=== PATIENT | male | born 1995 ===

== ENCOUNTER 2024-12-29 08:56 | Inpatient (IN) | payer MEDICARE, MEDICAID, SELFPAY ==
[2024-12-29] VITALS (13 sets, daily range): BP systolic 87–134; BP diastolic 43–89; PULSE 85–111; RESP 16–26; TEMP 36.8–38.9; O2SAT 95–99; BMI 31.4; BMI 29.3
--- NOTE | ~2024-12-29 | US_ITS ---
EXAMINATION: US TRIPLEX LOWER EXTREMITY, BILATERAL CLINICAL INFORMATION: Pain, lower extremities. COMPARISON: None available. TECHNIQUE: Color-flow triplex imaging with spectral analysis and compression Doppler were performed on the bilateral lower extremities. FINDINGS: Respiratory variation, normal compression and augmented flow are noted throughout the visualized common femoral vein, superficial femoral vein, profunda femoral vein, popliteal vein and midcalf peroneal and posterior tibial venous segments . There is no Sullivan's cyst. US/US venous duplex LE BI IMPRESSION: No acute deep venous thrombosis involving the bilateral lower extremities. Negative exam. Electronically signed by: Grabiel Erazo MD 12/30/2024 02:34 PM EST
--- NOTE | ~2024-12-29 | XR_ITS ---
EXAMINATION: XR CHEST CLINICAL INFORMATION: fever COMPARISON: None available. TECHNIQUE: 2 views of the chest were obtained. FINDINGS: No significant abnormality is noted involving the heart, lungs, mediastinum, bony thorax or soft tissues. XR/XR chest 2V IMPRESSION: Unremarkable chest examination. Electronically signed by: Wily Oakes MD 12/29/2024 04:27 PM [facility] [place]
--- NOTE | ~2024-12-29 | CT_ITS ---
CLINICAL HISTORY: pyelonerphitits, kidney stones, hazel rectal absces CT abdomen and pelvis with contrast Comparison: 02/21/2019 Findings: No consolidation or effusion. The gallbladder and solid organs are within normal limits. No renal stones. There is extensive fluid distention of small bowel. No focal bowel inflammation or evidence of bowel obstruction. There is thickening and nodularity of the bladder wall, predominating inferiorly and on the right. There is infiltration of fat adjacent to the urinary bladder, prostate gland and seminal vesicles and within the presacral space. Normal appendix. There is thrombus within the left common iliac vein and bilateral internal iliac veins. There is partial visualization of a mass or complex fluid collection involving the posterior inferior base of the penis on the left side and the adjacent perineum (series 2 images 88-95 ). Possible 2 cm fluid collection within the left obturator internus muscle. The bones are intact. IMPRESSION: 1. There is thrombus within the left common iliac vein and bilateral internal iliac veins. 2. Thickening and nodularity of the bladder wall may be secondary to infection or neoplasm. There is also infiltration of fat adjacent to the bladder, prostate gland, seminal vesicles and within the presacral space suggesting additional areas of involvement. 3. Partial visualization of a mass or complex fluid collection involving the posterior inferior base of the penis on the left side and the adjacent perineum. Possible fluid collection within the adjacent left obturator internus muscle. This document has been electronically signed by: Karin Rey MD on 12/29/2024 19:36:19
--- NOTE | ~2024-12-29 | CT_ITS ---
CLINICAL HISTORY: follow up ischiorectal abscess CT PELVIS WITHOUT CONTRAST Comparison: CT/TX/SR - CT PELVIS W IV CON - 12/30/24 09:[address]/SR - CT ABDOMEN PELVIS W IV CON - 12/29/24 18:34 EST Findings: Persistent presacral edema with no definite organized fluid collection. Probably improved perivesical edema. There are now inflammatory changes in the left lower quadrant. The visualized appendix is unremarkable. No acute osseous abnormality. The lack of IV contrast limits evaluation. There is redemonstration of irregular opacities in the left posterior perineum adjacent to the penile base, extending roughly 8 cm in craniocaudal dimension. There is again thickening of the ipsilateral obturator internus musculature. IMPRESSION: 1. Suspected multifocal abscesses in the left posterior perineum with involvement of the left obturator internus muscle is grossly unchanged compared to prior studies. No findings to suggest necrotizing fasciitis. 2. Likely reactive presacral edema with no definite intraperitoneal fluid collection. This document has been electronically signed by: Lia Ernandez DO on 01/01/2025 15:50:34
--- NOTE | ~2024-12-29 | CT_ITS ---
EXAMINATION: CT PELVIS WITH CONTRAST CLINICAL INFORMATION: Left renal complex fluid/mass. Follow-up. COMPARISON: CT abdomen pelvis 12/29/2004. TECHNIQUE: Helical scanning was performed with submillimeter collimation through the pelvis with the use of oral contrast and during bolus intravenous injection of 100 mL of Omnipaque 350 intravenous contrast. Sagittal and coronal multiplanar 2-D reconstructions were obtained. This CT examination was performed using dose optimization techniques as appropriate, variously including the following: *Automated exposure control *Adjustment of mA and/or kV according to patient size (this includes techniques or standardized protocols for targeted exams where dose is matched to indication/reason for exam; i.e. extremities or head) *Use of iterative reconstruction technique FINDINGS: PELVIS: There is a left complex fluid collection in ischio rectal fossa extending slightly inferiorly. Measures 5.8 cm in a craniocaudad, 3 cm wide and 3.2 cm in AP and dimension. It measures 19 Hounsfield units suggestive of complex fluid collection. It is restricted to left medial buttock region. Inferior to the base of left than is there is a hypodense area likely an abscess measuring 2.7 x 2.5 cm in axial slice 45/3 probably communicates to the left knee show a rectal complex fluid collection. The left upper is intravenous muscle is slightly heterogeneous when compared to right side likely secondary to inflammatory process. No pelvic lymph node. Mild presacral thickening but no fluid collection seen. The urinary bladder is opacified with excluded urinary contrast from previous CT. No abnormal pelvic or inguinal or retroperitoneal lymph nodes seen. Appendix is normal caliber. OSSEOUS STRUCTURES: No gross bony abnormality seen. CT/CT pelvis w IV con IMPRESSION: Complex fluid collection at the base of left penis . It appears to be communicating to more complex fluid collection in left ischio rectal fossa. The left obturator internus is complex and minimally enlarged compared right-sided likely secondary to adjacent inflammatory process. There is mild presacral soft tissue thickening also reactionary changes. There is no bony involvement is suspected any osteomyelitis. There appears to be no communication to the rectum or anus on this exam. There is maintained fat between the 2 areas. Electronically signed by: Wily Oakes MD 12/30/2024 10:21 AM [facility]
[2024-12-29 09:51] LABS: MANUAL DIFF FLAG NO
[2024-12-29 09:55] LABS: Basophils Absolute Auto 0.1 X10*3/uL (0.0-0.2); Basophils Percent Auto 0.3 % (0-2); Eosinophils Absolute Auto 0.2 X10*3/uL (0.0-0.4); Eosinophils Percent Auto 1.4 % (0-4); Hemoglobin 11.2 g/dl (14.0-18.0); Imm Gran Abs Auto 0.11 X10*3/uL (0.00-0.03); Imm Gran Pct Auto 0.6 % (0.0-0.4); Lymphocytes Absolute Auto 1.7 X10*3/uL (1.2-4.9); Mean Corpuscular HGB Conc 32.9 g/dl (31.0-36.0); Mean Corpuscular Hemoglobin 27.3 pg (27.0-33.0); Mean Corpuscular Volume 82.9 fL (80.0-98.0); Mean Platelet Volume 9.3 fL (9.4-12.4); Monocytes Absolute Auto 0.9 X10*3/uL (0.1-1.2); Monocytes Percent Auto 5.1 % (2-11); Neutrophils Absolute Auto 14.1 x10*3/uL (2.0-8.3); Neutrophils Percent Auto 82.6 % (45-73); Platelet Count 577 X10*3/uL (160-400); White Blood Count 17.1 X10*3/uL (4.8-10.8)
[2024-12-29 10:15] LABS: Alanine Aminotransferase 27 U/L (0-40); Albumin Level 2.9 g/dL (3.5-5.0); Alkaline Phosphatase 122 U/L (39-117); Anion Gap 13 (12-20); Aspartate Amino Transferase 26 U/L (5-37); Bilirubin Total 0.6 mg/dL (0.0-1.0); Blood Urea Nitrogen 11 mg/dL (9-16); Calcium 8.5 mg/dL (8.4-10.2); Carbon Dioxide 24 mmol/L (22-29); Chloride 106 mmol/L (96-108); Creatinine Clr Calc Pharmacy 155.7; Estimated Glomerular Filt Rate > 60; Glucose Random 88 mg/dL (60-115); Lipase 13 U/L (8-78); Potassium 3.5 mmol/L (3.3-5.1); Sodium 139 mmol/L (135-145); Total Protein 7.7 g/dL (6.5-8.0)
[2024-12-29 10:36] LABS: Influenza A PCR NEGATIVE (Negative); Influenza B PCR NEGATIVE (Negative); Resp Syncy Virus RNA Qual PCR NEGATIVE (Negative); SARS COV2 PCR INHOUSE NEGATIVE (Negative)
[2024-12-29 13:02] LABS: Appearance Urine Cloudy; Color Urine Dark Yellow; Glucose Urine UA Negative (Negative); Leukocyte Esterase Urine Large (3+) (Negative); Nitrite Urine Negative (Negative); PH 6.5 (5.0-9.0); Specific Gravity - Urine 1.015 (1.005-1.025); UMIC TRIGGER UACC YES; Urine Blood Moderate (2+) (Negative); Urine Ketones 15 mg/dL (Negative); Urine Protein 30 (1+) mg/dL (Neg-Trace)
[2024-12-29 13:12] LABS: Bacteria Urine 1+ (None Seen); Hyaline Casts Urine 0-2 /LPF (0-2); Squamous Epithelial Cell Urine 0-2 /HPF (0-2); UACC Culture Trigger YES; WBC Urine >50 /HPF (0-5)
[2024-12-29] MEDS: 0.9 % Sodium Chloride 1,000 ML 999 ML IV ×3 (16:57→18:50)
--- NOTE | 2024-12-29 17:00 | PC.NURSE ---
patient a&ox3, iv inserted, labs drawn, blood cultures/lactic obtained-pt made sepsis protocol due to pt temperature, ivf hung, abx given per order. pt c/o 8/10 generalized pain, pt medicated with tylenol for fever. pt had rectal discomfort/ discharge green in color-provider aware- CT ordered.
--- NOTE | 2024-12-29 17:00 | ED.GENADULT ---
HPI - General Adult General Chief complaint: General Medical Stated complaint: Fever Time Seen by Provider: 12/29/24 16:29 Source: patient Mode of arrival: ambulatory Limitations: no limitations History of Present Illness ED Provider: Danny Harrington [facility] narrative: 29-year-old male presents to ED for fevers 4-5 days patient currently being treated for UTI taking doxy states nausea vomiting diarrhea patient states also has lump in left buttocks. Patient denies any testicular pain, penile pain, penile lesions, penile discharge Related Data Home Medications ?Medication ?Instructions ?Recorded ?Confirmed doxycycline hyclate 100 mg capsule 100 mg PO BID 12/29/24 12/29/24 hydroxyzine HCl 25 mg tablet 25 mg PO BEDTIME PRN Anxiety/Sleep 12/29/24 12/29/24 Previous Rx's ?Medication ?Instructions ?Recorded albuterol sulfate 2.5 mg/3 mL 2.5 mg (3 mL) inhalation Q8H PRN 05/10/22 (0.083 %) solution for nebulization shortness of breath or wheezing #225 mL albuterol sulfate 90 mcg/actuation 1 puff inhalation Q4H PRN for 10/21/24 aerosol inhaler wheezing #8.5 ea Allergies Allergy/AdvReac Type Severity Reaction Status Date / Time No Known Allergies Allergy Verified 12/29/24 09:16 [No Known Allergies*] Review of Systems Review of Systems: Dysuria left buttock pain Yes all other systems are reviewed and are negative PMFSH Past Medical History Medical History Mild intermittent asthma Autism Social History Social History Household Members: None Housing: Apartment Alcohol intake: never Patient Tobacco Use Status: Never used Tobacco Tobacco use type: Cigarette Cigarette Packs Per Day: 1 e-Cigarette/Vaping Use: Never Used Current occupational status: unemployed Physical Exam ED Vital Signs: Vital Signs - 24 hr 12/29/24 16:31 12/29/24 16:43 12/29/24 18:11 Temperature 102.1 F H 100.4 F Pulse Rate 103 H 111 H Pulse Rate [Left Apical] Respiratory Rate 16 18 Blood Pressure 134/89 96/45 L Pulse Oximetry 99 95 Oxygen Delivery Method Room Air Room Air 12/29/24 18:30 12/29/24 18:31 12/29/24 18:48 Temperature Pulse Rate 102 H 111 H Pulse Rate [Left Apical] 106 H Respiratory Rate 24 H 24 H 26 H Blood Pressure 87/43 L 105/59 L Pulse Oximetry 96 96 Oxygen Delivery Method Room Air Room Air 12/29/24 19:08 12/29/24 19:28 12/29/24 19:53 Temperature 98.8 F Pulse Rate 110 H 106 H 91 Pulse Rate [Left Apical] Respiratory Rate 26 H 18 24 H Blood Pressure 112/66 104/55 L 112/64 Pulse Oximetry 97 97 98 Oxygen Delivery Method Room Air Room Air Room Air 12/29/24 20:08 12/29/24 20:28 12/29/24 21:58 Temperature 98.2 F Pulse Rate 87 85 87 Pulse Rate [Left Apical] Respiratory Rate 22 H 23 H 22 H Blood Pressure 106/67 115/71 116/75 Pulse Oximetry 96 96 99 Oxygen Delivery Method Room Air Room Air Room Air BMI result Body Mass Index 29.3 Const General: cooperative, healthy appearing, comfortable, no acute distress, well developed, alert, awake and Physically active [facility] Head: Yes normal to inspection, Yes No palpable skull fracture present, Yes normocephalic and Yes atraumatic Eyes General: appearance normal, both eyes and all related structures Neck Neck: Yes normal visual inspection, Yes full ROM, Yes no lymphadenopathy, Yes no meningeal signs, Yes trachea midline, Yes supple, No anterior neck swelling and No tender Chest Chest palpation & inspection: normal inspection of the chest and normal palpation of entire chest wall Resp Effort & Inspection: normal respiratory effort and able to speak in complete sentences Auscultation: clear to auscultation bilaterally Cardio Jugular venous distension: no JVD Heart sounds: S1 normal heart sound present and S2 normal heart sound present GI Other: Rectal exam seems to be positive for greenish discharge from anus and tenderness glove atrial mass show closest in her to rectum. No gluteal mass but tenderness of glueteal buttocks near anus. Anus tenderness. Inspection: Yes normal to inspection Palpation (GI): Soft to palpation, not firm, nontender, no guarding and not rigid Neuro General: no meningeal signs Course Reevaluation(s) Reevaluation #1: 12/29/2024 19:45 - Kendra Langford NP assumed care patient form my colleage Misty HUGHES - Patient is a 29-year-old male with past medical history of asthma, autism presenting for 4-5 days with fever 104-105, currently on outpatient treatment with doxy for UTI as well as a lump to the left buttock, meeting sepsis criteria with leukocytosis of 17,100 and a left shift, found to had have UTI, on examination she reported palpable lump of the left buttock, there was green discharge expressed from the anus, CT of the abdomen and pelvis was obtained revealing thickened nodularity of the bladder secondary to infection or neoplasm, infiltration of fat adjacent to the bladder prostate gland seminal vesicles and within the presacral space suggesting additional involvement as well as a partial visualization of a mass or complex fluid collection involving the posterior inferior base of the penis on the left side in the adjacent perineum with possible fluid collection within the adjacent left obturator internus muscle. Additionally thrombus within the left common iliac vein and bilateral internal iliac veins, will be initiated on heparin drip with heparin bolus. patient denies any history of drug usage aside from Marijuana, no IVDA. patient and mother Ceci (by phone) has been updated on CT finding and plan of care. On review of VS at 18:30 - evidence of organ dysfuntion with Hypotension, no lactic acidosis. He was mildly tachycardic, with temp of 100.4 degrees for which he received acetaminophen. Thus far he has received a total of 3 L normal saline IV fluid and has been covered with Zosyn, blood cultures pending. vital signs at 19:53 afebrile, pulse of 91, BP 112/64 thus far responsive to fluids, will monitor closely. IMPRESSION: 1. There is thrombus within the left common iliac vein and bilateral internal iliac veins. 2. Thickening and nodularity of the bladder wall may be secondary to infection or neoplasm. There is also infiltration of fat adjacent to the bladder, prostate gland, seminal vesicles and within the presacral space suggesting additional areas of involvement. 3. Partial visualization of a mass or complex fluid collection involving the posterior inferior base of the penis on the left side and the adjacent perineum. Possible fluid collection within the adjacent left obturator internus muscle. I have consulted with General surgery Dr. Domingo who advises admission to hospitalist service for IV antibiotics and treatment of venous thrombus with the additional advisement to have repeat CT obtained with lower cut off of imaging. I have consulted with urology Dr. Rausch who advises for a Elizalde catheter to be placed admitted to medicine service, spoke with hospitalist Dr. Salinas and Vic HUGHES. I personally attest to this critical care time spent taking care of the patient exclusive of all other billable procedures was approximately 40 minutes including initial evaluation of patient, ordering tests, CT interpretation, heparin infusion initiation, acute sepsis management, medical consultation, documentation, re-evaluation. Time: 19:45 Medications Administered Generic Name Dose Route Start Last Admin Trade Name Freq PRN Reason Stop Dose Admin Heparin Sodium (Porcine) 3,500 unit 12/29/24 20:43 12/30/24 11:30 Heparin Sodium,Porcine 5,000 Unit/Ml Vial IVPUSH 3,500 unit PROTOCOL BOLUS PRN Administration 40 unit/kg - Heparin Protocol Protocol Heparin Sodium (Porcine) 7,000 unit 12/29/24 20:43 12/30/24 04:43 Heparin Sodium,Porcine 5,000 Unit/Ml Vial IVPUSH 7,000 unit PROTOCOL BOLUS PRN Administration 80 unit/kg - Heparin Protocol Protocol Heparin Sodium/Sodium Chloride 25,000 unit in 250 mls @ 0 mls/hr 12/29/24 20:45 12/30/24 11:14 Heparin Sodium,Porcine/1/2ns IVCONT 20 units/kg/hr .Q0M PAMELA 17.5 mls/hr Titration Protocol Per Protocol Piperacillin Sod/Tazobactam 50 mls @ 100 mls/hr 12/30/24 08:00 12/30/24 11:16 Sod 3.375 gm/ Sodium Chloride IV Infused Q6H PAMELA Infusion Vancomycin HCl 2,000 mg in 500 mls @ 250 mls/hr 12/30/24 11:30 12/30/24 11:59 Vancomycin/Ns IV 12/30/24 13:29 Not Given ONCE ONE Morphine Sulfate 4 mg 12/29/24 22:29 12/30/24 10:50 Morphine Sulfate 4 Mg/Ml Cartridge IVPUSH 4 mg Q4H PRN Administration Pain, Severe (Pain Scale 7-10) Protocol Sodium Chloride 3 ml 12/30/24 00:00 12/30/24 07:53 0.9 % Sodium Chloride Flush 3 Ml Syringe IVFLUSH Not Given QSHIFT PAMELA Discontinued Medications Generic Name Dose Route Start Last Admin Trade Name Dio PRN Reason Stop Dose Admin Acetaminophen 975 mg 12/29/24 16:42 12/29/24 17:07 Acetaminophen 325 Mg Tablet PO 12/29/24 16:43 975 mg ONCE ONE Administration Heparin Sodium (Porcine) 7,500 unit 12/29/24 20:43 12/29/24 21:29 Heparin Sodium,Porcine 5,000 Unit/Ml Vial 80 unit/kg (7500 unit) 12/29/24 20:44 7,500 unit IVPUSH Administration ONCE ONE Piperacillin Sod/Tazobactam 50 mls @ 100 mls/hr 12/29/24 16:55 12/29/24 17:37 Sod 3.375 gm/ Sodium Chloride IV 12/29/24 17:24 Infused ONCE ONE Infusion Sodium Chloride 1,000 mls @ 999 mls/hr 12/29/24 16:55 12/29/24 17:58 Ns IV 12/29/24 17:55 Infused .Q1H1M STA Infusion Sodium Chloride 1,000 mls @ 999 mls/hr 12/29/24 18:10 12/29/24 19:35 Ns IV 12/29/24 19:10 Infused .Q1H1M STA Infusion Sodium Chloride 1,000 mls @ 999 mls/hr 12/29/24 18:35 12/29/24 20:00 Ns IV 12/29/24 19:35 Infused .Q1H1M STA Infusion Piperacillin Sod/Tazobactam 50 mls @ 100 mls/hr 12/29/24 23:00 12/30/24 02:17 Sod 3.375 gm/ Sodium Chloride IV Infused Q6H PAMELA Infusion Vancomycin HCl 2,000 mg in 500 mls @ 250 mls/hr 12/30/24 09:15 12/30/24 11:35 Vancomycin/Ns IV 12/30/24 11:14 250 mls/hr ONCE ONE Administration Iohexol 100 ml 12/29/24 18:37 12/29/24 18:38 Iohexol 350 Mg/Ml 100 Ml Infus..Btl IV 12/29/24 18:38 85 ml ONCE ONE Administration Iohexol 100 ml 12/30/24 09:58 12/30/24 09:58 Iohexol 350 Mg/Ml 100 Ml Infus..Btl IV 12/30/24 09:59 85 ml ONCE ONE Administration Ketorolac Tromethamine 30 mg 12/29/24 18:10 12/29/24 18:27 Ketorolac Tromethamine 30 Mg/Ml Vial IVPUSH 12/29/24 18:11 30 mg ONCE ONE Administration Ketorolac Tromethamine 30 mg 12/29/24 22:29 12/30/24 01:40 Ketorolac Tromethamine 30 Mg/Ml Vial IVPUSH 01/03/25 22:28 30 mg Q6H PRN Administration Pain, Moderate(Pain Scale 4-6) Medical Decision Making Medical Decision Making [facility] Narrative: 29-year-old male febrile elevated white blood cell count [id number] POSITIVE UTI AND ALSO GREEN DISCHARGE FROM ANUS. TYLENOL ORDERED. FLUIDS ORDERED. ZOSYN ORDERED POSSIBLE PERIRECTAL ABSCESS AND TO TREAT THE UTI. ABDOMINAL CT SCAN ORDERED. Case signed out to FIDELINA Gardner Differential Diagnosis Differential Diagnoses: The differential diagnosis associated with the presentation includes (perirectal abscess, uti, kidney stones, pyelonephritis) Admission/Observation Consideration of admission/observation: Escalation of care including admission/observation considered Lab Data [facility] Lab Attestation statement: I reviewed the patient's lab results. 12/30/24 03:41 12/30/24 03:41 Labs: Lab Results 12/29/24 12/29/24 12/29/24 Range/Units 09:38 12:42 16:50 WBC 17.1 H (4.8-10.8) X10*3/uL RBC 4.10 L (4.60-5.80) X10*6/uL Hgb 11.2 L (14.0-18.0) g/dl Hct 34.0 L (42.0-52.0) % MCV 82.9 (80.0-98.0) fL MCH 27.3 (27.0-33.0) pg MCHC 32.9 (31.0-36.0) g/dl RDW 14.0 (11.0-16.0) % Plt Count 577 H (160-400) X10*3/uL MPV 9.3 L (9.4-12.4) fL Immature Gran % (Auto) 0.6 H (0.0-0.4) % Neut % (Auto) 82.6 H (45-73) % Lymph % (Auto) 10.0 L (20-40) % [place] % (Auto) 5.1 (2-11) % Eos % (Auto) 1.4 (0-4) % Baso % (Auto) 0.3 (0-2) % Lymph # (Auto) 1.7 (1.2-4.9) X10*3/uL [place] # (Auto) 0.9 (0.1-1.2) X10*3/uL Eos # (Auto) 0.2 (0.0-0.4) X10*3/uL Baso # (Auto) 0.1 (0.0-0.2) X10*3/uL Abs Immat Gran (auto) 0.11 H (0.00-0.03) X10*3/uL Absolute Neuts (auto) 14.1 H (2.0-8.3) x10*3/uL Absolute Nucleated RBC 0.000 (0.0-0.012) X10*3/uL Nucleated RBC % (auto) 0.0 (0.0-0.2) /100WBC PT (10.9-12.4) SEC INR (0.9-1.1) APTT (26.0-36.8) SEC Sodium 139 (135-145) mmol/L Potassium 3.5 (3.3-5.1) mmol/L Chloride 106 (96-108) mmol/L Carbon Dioxide 24 (22-29) mmol/L Anion Gap 13 (12-20) BUN 11 (9-16) mg/dL Creatinine 0.77 (0.5-1.4) mg/dL Estim Creat Clear Calc 155.7 Estimated GFR > 60 Random Glucose 88 (60-115) mg/dL Lactic Acid 1.7 (0.5-2.0) mmol/L Calcium 8.5 (8.4-10.2) mg/dL Total Bilirubin 0.6 (0.0-1.0) mg/dL AST 26 (5-37) U/L ALT 27 (0-40) U/L Alkaline Phosphatase 122 H (39-117) U/L Total Protein 7.7 (6.5-8.0) g/dL Albumin 2.9 L (3.5-5.0) g/dL Lipase 13 (8-78) U/L Urine Color Dark Yellow Urine Appearance Cloudy Urine pH 6.5 (5.0-9.0) Ur Specific [place] 1.015 (1.005-1.025) Urine Protein 30 (1+) H (Neg-Trace) mg/dL Urine Glucose (UA) Negative (Negative) mg/dL Urine Ketones 15 (Negative) mg/dL Urine Blood Moderate (2+) H (Negative) Urine Nitrite Negative (Negative) Ur Leukocyte Esterase Large (3+) H (Negative) Urine RBC 3-5 H (0-2) /HPF Urine WBC >50 H (0-5) /HPF Ur Squamous Epith Cells 0-2 (0-2) /HPF Urine Bacteria 1+ (None Seen) Hyaline Casts 0-2 (0-2) /LPF Influenza Type A (PCR) NEGATIVE (Negative) Influenza Type B (PCR) NEGATIVE (Negative) RSV RNA Qual (PCR) NEGATIVE (Negative) SARS-CoV-2 RNA (RT-PCR) NEGATIVE (Negative) 12/29/24 Range/Units 20:55 WBC (4.8-10.8) X10*3/uL RBC (4.60-5.80) X10*6/uL Hgb (14.0-18.0) g/dl Hct (42.0-52.0) % MCV (80.0-98.0) fL MCH (27.0-33.0) pg MCHC (31.0-36.0) g/dl RDW (11.0-16.0) % Plt Count (160-400) X10*3/uL MPV (9.4-12.4) fL Immature Gran % (Auto) (0.0-0.4) % Neut % (Auto) (45-73) % Lymph % (Auto) (20-40) % [place] % (Auto) (2-11) % Eos % (Auto) (0-4) % Baso % (Auto) (0-2) % Lymph # (Auto) (1.2-4.9) X10*3/uL [place] # (Auto) (0.1-1.2) X10*3/uL Eos # (Auto) (0.0-0.4) X10*3/uL Baso # (Auto) (0.0-0.2) X10*3/uL Abs Immat Gran (auto) (0.00-0.03) X10*3/uL Absolute Neuts (auto) (2.0-8.3) x10*3/uL Absolute Nucleated RBC (0.0-0.012) X10*3/uL Nucleated RBC % (auto) (0.0-0.2) /100WBC PT 13.6 H (10.9-12.4) SEC INR 1.2 H (0.9-1.1) APTT 28.6 (26.0-36.8) SEC Sodium (135-145) mmol/L Potassium (3.3-5.1) mmol/L Chloride (96-108) mmol/L Carbon Dioxide (22-29) mmol/L Anion Gap (12-20) BUN (9-16) mg/dL Creatinine (0.5-1.4) mg/dL Estim Creat Clear Calc Estimated GFR Random Glucose (60-115) mg/dL Lactic Acid (0.5-2.0) mmol/L Calcium (8.4-10.2) mg/dL Total Bilirubin (0.0-1.0) mg/dL AST (5-37) U/L ALT (0-40) U/L Alkaline Phosphatase (39-117) U/L Total Protein (6.5-8.0) g/dL Albumin (3.5-5.0) g/dL Lipase (8-78) U/L Urine Color Urine Appearance Urine pH (5.0-9.0) Ur Specific [place] (1.005-1.025) Urine Protein (Neg-Trace) mg/dL Urine Glucose (UA) (Negative) mg/dL Urine Ketones (Negative) mg/dL Urine Blood (Negative) Urine Nitrite (Negative) Ur Leukocyte Esterase (Negative) Urine RBC (0-2) /HPF Urine WBC (0-5) /HPF Ur Squamous Epith Cells (0-2) /HPF Urine Bacteria (None Seen) Hyaline Casts (0-2) /LPF Influenza Type A (PCR) (Negative) Influenza Type B (PCR) (Negative) RSV RNA Qual (PCR) (Negative) SARS-CoV-2 RNA (RT-PCR) (Negative) Independent Interpretation I performed an independent interpretation of an: CT Scan Independent Historian Clinical information obtained from an independent historian. History obtained from or confirmed by: Parent (mother) and Other (patient) Critical Care Time Critical Care Time Critical Care Time: Yes Total Critical Care Time: 60 Attestation: patient febrile yatchy and elevated wbc. labs, fluids, antibiotics, and ct scan ordered. Discharge Plan Discharge Clinical Impression: Acute UTI, Acute deep vein thrombosis (DVT) of iliac vein of both lower extremities Sepsis Qualifiers: Sepsis type: sepsis due to unspecified organism Sepsis acute organ dysfunction status: unspecified Qualified Code(s): A41.9 - Sepsis, unspecified organism Patient Disposition: Admitted As Inpatient Interventions: Admission Worksheet (ED) Last Done: 12/30/24 10:21 Discharge Date/Time: 12/30/24 11:06
[2024-12-29] MEDS: Acetaminophen 325 MG TABLET 975 MG PO (17:07)
[2024-12-29] MEDS: Piperacillin Sodium/Tazobactam 3.375 GM in 0.9 % Sodium Chloride 50 ML IV (17:07)
[2024-12-29 17:14] LABS: Lactic Acid 1.7 mmol/L (0.5-2.0)
[2024-12-29] MEDS: Ketorolac Tromethamine 30 MG/ML VIAL IVPUSH (18:27)
[2024-12-29] MEDS: iohexoL 350 MG/ML 100 ML INFUS..BTL IV (18:38)
--- NOTE | 2024-12-29 18:41 | PC.NURSE ---
pts moved to [facility] 3 placed on a nuclear monitoring technician- NSR, bp soft- provider aware-additional fluids hung per order, pt medicated for pain per order, pt went to CT scan.
--- OUTSIDE RECORDS SUMMARY | 2024-12-29 19:28 | XMS_ITS | Encounter Summary ---
Author Organization [facility] Address [address] [place] [id number] Phone Care Team Providers Care Councilman Name Role Phone Derrell Redmond MD Primary Care Provider [phone] Encounter Details Date Type Department Care Team (Late st Contact Info) Description 10/18/2012 Documentation EM Family Medicine [address] [place] [address] Family Medicine, Physician [address] [place], [place] [id number] Social History Tobacco Use Types Packs/Day Years Used Date Smoking Tobacco: Never Assessed Sex and Gender Information Value Date Recorded Sex Assigned at Not on file Legal Sex Male 4:50 PM EDT Gender Identity Not on file Sexual Orientation Not on file documented as of this encounter Plan of Treatment Not on file documented as of this encounter Visit Diagnoses Not on filedocumented in this encounter Care Teams Councilman Relationship Specialty Start Date End Date Derrell Redmond MD [address] [facility] [place] [address] PCP - General 06/05/17 01/07/23 documented as of this encounter
--- OUTSIDE RECORDS SUMMARY | 2024-12-29 19:28 | XMS_ITS | Encounter Summary ---
Author Organization [facility] Address [address] [place] [address] Phone Care Team Providers Care Chief Radiologic Technologist Name Role Phone Derrell Redmond MD Primary Care Provider [phone] Encounter Details Date Type Department Care Team (Late st Contact Info) Description 06/11/2017 Conversion Encounter [facility] [address] [place] [address] Social History Tobacco Use Types Packs/Day Years Used Date Smoking Tobacco: Never Comments:Never smoker Sex and Gender Information Value Date Recorded Sex Assigned at Not on file Legal Sex Male 4:50 PM EDT Gender Identity Not on file Sexual Orientation Not on file documented as of this encounter Plan of Treatment Not on file documented as of this encounter Visit Diagnoses Not on filedocumented in this encounter Care Teams Chief Radiologic Technologist Relationship Specialty Start Date End Date Derrell Redmond MD [address] [place] [address] PCP - General 06/05/17 01/07/23 documented as of this encounter
--- OUTSIDE RECORDS SUMMARY | 2024-12-29 19:28 | XMS_ITS | Clinical Summary ---
Author Organization [facility] Address [address] [place] [id number] Phone Care Team Providers Care Hydraulic Chair Assembler Name Role Phone Unavailable Primary Care Provider Unavailabl e Immunizations Immunization Administration Dates Next Due DTP 11/16/1995, 5,1994, 994 DTaP 5 06/20/1999 H1N1 10/03/2009 HPV, Quadrivalent 08/25/2013,03/04/2012,10/01/20 10 Hep A, ped/adol 01/03/2014 Hep B, ped/adol 01/16/1995,1994,1994 Hib (PRP-T) 11/16/1995, 5,1994, 994 IPV 01/16/1995,1994,1994 Influenza Split 08/25/2013, 2,11/04/2011, 010 Influenza, injectable, trivalent 009,09/26/2008,08/10/2007, 006,09/03/2005 MMR 06/20/1999,11/16/1995 Meningococcal Conj (Menactra) MCV4P 09/26/2008 OPV 06/20/1999 Tdap 07/06/2006 Family History Relation Name Status Comments Father Alive Father: d Half-Brother 1 Alive Half brother (M): Asthma, Asthma, Autism Half-Brother 2 Alive Half brother (M): Asthma, Asthma, Autism Half-Brother 3 Alive Half brother (M): Asthma, Asthma, Autism Half-Sister Alive Half sister (M) : Alive and well Mother Alive Mother: Asthma Other Family history of Diabetes mellitus, Family history of Asthma, Family history of Obesity, Family history of *Dental caries, No family history of Cancer, No family history of *Sudden /GA under 55, Family history of Migraines, No family history of Developmental dislocation of hip, Family history of Hyperlipidemia, No family history of Hypertension, No family history of *Heart Disease, Family history of Strabismus, No family history of Deafness, No family history of Seizure disorder, No family history of *CVA/Stroke, No family history of ADD/ADHD Sister Alive Sister: Asthma Social History Tobacco Use Types Packs/Day Years Used Date Smoking Tobacco: Never Comments:Never smoker Sex and Gender Information Value Date Recorded Sex Assigned at Not on file Legal Sex Male 4:50 PM EDT Gender Identity Not on file Sexual Orientation Not on file Last Filed Vital Signs Vital Sign Reading Time Taken Comments Blood Pressure 116/77 01/03/2014 12:00 AM EDT Pulse 98 01/03/2014 12:00 AM EDT Temperature 36.1 ??C (96.9 ??F) 08/25/2013 12:00 AM E DT Respiratory Rate - - Oxygen Saturation - - Inhaled Oxygen Concentration - - Weight 68 kg (150 lb) 01/03/2014 12:00 AM EDT Height 177.8 cm (5' 10 ) 01/03/2014 12:00 AM EDT Body Mass Index 21.52 01/03/2014 12:00 AM EDT Plan of Treatment Health Maintenance Due Date Last Done Comments Varicella Vaccines (1 of 2 - 13+ 2-dose series) 2007 Consider Men B Vaccine (1 of 2 - Bexsero 2-dose series) 2010 DTaP,Tdap,and Td Vaccines (7 - Td or Tdap) 07/06/2016 07/06/2006, 06/20/1999, 11/16/1995, Additional history exists Influenza Vaccines (#1) 2024 08/25/20 13, 09/09/2012, 11/04/2011, Additional history exists COVID-19 Vaccine ( season) 2024 Hepatitis B Vaccines Completed 01/16/1995, 1994, 1994 HIB Vaccines Completed 11/16/1995, 12/25, 1994, Additional history exists IPV Vaccines Completed 06/20/1999, 12/25, 1994, Additional history exists MMR Vaccines Completed 06/20/1999, 11/16/1995 Meningococcal Vaccine Aged Out 09/26/2008 No eric rachel eligible based on patient's age to complete this topic HPV Vaccines Completed 08/25/2013, 02/23, 10/01/2010 Hepatitis A Vaccines Aged Out 01/03/2014 No long er eligible based on patient's age to complete this topic Men B Vaccine Aged Out No longer elig ible based on patient's age to complete this topic Pneumococcal Vaccine Aged Out No long er eligible based on patient's age to complete this topic
--- NOTE | 2024-12-29 20:52 | PC.NURSE ---
16F temp sensing weathers cath inserted.
--- NOTE | 2024-12-29 21:15 | PC.NURSE ---
patient is complaining of 8/10 pain, provider has been notified, mother is back at bedside wishing to speak with provider as well- provider also notified
[2024-12-29] MEDS: Heparin Sodium,Porcine 5,000 UNIT/ML VIAL 7500 UNIT IVPUSH (21:29)
[2024-12-29 21:31] LABS: INTERNATIONAL NORM RATIO 1.2 (0.9-1.1); Prothrombin Time 13.6 SEC (10.9-12.4)
[2024-12-29 21:34] LABS: Partial Thromboplastin Time 28.6 SEC (26.0-36.8)
[2024-12-29] MEDS: Heparin Sodium,Porcine/1/2NS 25,000 UNIT/250 ML IV.SOLN 12.25 UNIT IVCONT (21:35)
--- NOTE | 2024-12-29 21:39 | PC.NURSE ---
heparin drip started per order
--- NOTE | 2024-12-29 21:55 | PM.IMHP ---
History of Present Illness Date of Service: 12/29/24 Attending physician on admission: Brody Salinas Chief Complaint: Fever Pt is a 29-year-old male with a PMH significant for asthma and autism? who presents to the ED for evaluation of fever x4-5 days. Reports has been experiencing fever at home measured as high as 104-105 for the past few days, temporarily relieved with Tylenol and Motrin. Was diagnosed with UTI 3 days ago and started on doxycycline. Began experiencing nausea, vomiting, intermittent abdominal pain, and diarrhea shortly after beginning antibiotics. Also complains of painful lump on his left buttock for the past few days; is unsure exactly when he 1st noticed it. Denies unintentional weight loss, though notes he has been feeling increasingly fatigued the past few weeks. Also has noticed his urine has been rubber goods finisher than normal: Bright orange with ?more bubbles?. No SOB or difficulty breathing. Denies chest pain/pressure, palpitations. Reports occasionally smokes marijuana, last used 3 months ago. Denies hx of IVDU. Rectal exam was performed by ED provider who noted greenish discharge from anus with pressing on left buttock. In the ED pt was febrile up to 102.1, tachycardic up to 111, tachypneic up to 26, and hypotension as low as 87/43. Labs were significant for leukocytosis 17.1, H&H 11.2/34.0, platelets 577, alk-phos 122, and albumin 2.9. No significant electrolyte abnormalities. Renal function baseline. Hepatic function WNL. Lactic acid WNL at 1.7. UA consistent with acute UTI. Tested negative for flu, COVID, RSV. CXR without acute cardiopulmonary disease. CT?of abdomen and pelvis with multiple findings, including thrombus within left common iliac vein and bilateral internal iliac veins, thickening and nodularity of bladder wall possibly secondary to infection or neoplasm. Shows infiltration of fat adjacent to bladder, prostate gland, seminal vesicles, and within presacral space suggesting additional areas of involvement. Also found partial visualization of a mass or complex fluid collection involving the posterior inferior base of the penis on the left side in the adjacent perineum possible fluid collection within the adjacent left obturator internus muscle. Pt was treated with IVF, acetaminophen, Zosyn, ketorolac, and started on heparin drip. Pt will be admitted to the hospital for treatment and further evaluation acute thrombus of left common iliac vein and bilateral internal iliac veins and acute UTI with sepsis with concerns for genitourinary abscess vs neoplasm. Review of Systems Review of Systems: Negative except for that which is stated in the HPI. [facility] Medical History (Updated 12/29/24 @ 23:12 by SAUL Dela Cruz) Mild intermittent asthma Autism Social History Alcohol intake: never Patient Tobacco Use Status: Current someday Tobacco user Tobacco use type: Cigarette Cigarette Packs Per Day: 1 Smoked in Last 30 Days: No e-Cigarette/Vaping Use: Never Used Use of substances other than those prescribed or required for medical reasons: No Advance Directives: No Advance Directives Information Provided: Yes Current occupational status: unemployed Meds Allergies Allergy/AdvReac Type Severity Reaction Status Date / Time No Known Allergies Allergy Verified 12/29/24 09:16 [No Known Allergies*] Active Medications: Current Medications Heparin Sodium (Porcine) (Heparin Sodium,Porcine 5,000 Unit/Ml Vial) 3,500 unit IVPUSH PROTOCOL BOLUS PRN; Protocol PRN Reason: 40 unit/kg - Heparin Protocol Heparin Sodium (Porcine) (Heparin Sodium,Porcine 5,000 Unit/Ml Vial) 7,000 unit IVPUSH PROTOCOL BOLUS PRN; Protocol PRN Reason: 80 unit/kg - Heparin Protocol Heparin Sodium/Sodium Chloride (Heparin Sodium,Porcine/1/2ns) 25,000 unit in 250 mls @ 0 mls/hr IVCONT .Q0M PAMELA; Protocol Last Admin: 12/29/24 21:35 Dose: 14 units/kg/hr, 12.25 mls/hr Home Medications ?Medication ?Instructions ?Recorded ?Confirmed ?Last Taken ?Type doxycycline hyclate 100 mg capsule 100 mg PO BID 12/29/24 12/29/24 12/29/24 History hydroxyzine HCl 25 mg tablet 25 mg PO BEDTIME PRN Anxiety/Sleep 12/29/24 12/29/24 Unknown History Physical Exam Vital Signs and Narrative: Vital Signs: Last Vital Signs Temp 98.8 F 12/29/24 19:53 Pulse 85 12/29/24 20:28 Resp 23 H 12/29/24 20:28 BP 115/71 12/29/24 20:28 Pulse Ox 96 12/29/24 20:28 O2 Del Method Room Air 12/29/24 20:28 BMI result Body Mass Index 29.3 General: AOx3, no acute distress Resp: CTA bilaterally CVS: S1, S2, RRR GI: +BS, NT, no distention Skin: Warm, dry Neuro: Cranial nerves II-XII grossly intact bilaterally. Motor grossly intact bilaterally : Exam deferred as completed by ED Extremities: No edema Psych: Appropriate affect Results Labs 12/29/24 09:38 12/29/24 09:38 Labs: Laboratory Results - last 24 hr 12/29/24 12/29/24 12/29/24 09:38 12:42 16:50 MCV 82.9 MCH 27.3 MCHC 32.9 RDW 14.0 Plt Count 577 H MPV 9.3 L Immature Gran % (Auto) 0.6 H Neut % (Auto) 82.6 H Lymph % (Auto) 10.0 L Pershing % (Auto) 5.1 Eos % (Auto) 1.4 Baso % (Auto) 0.3 Lymph # (Auto) 1.7 Pershing # (Auto) 0.9 Eos # (Auto) 0.2 Baso # (Auto) 0.1 Abs Immat Gran (auto) 0.11 H Absolute Neuts (auto) 14.1 H Absolute Nucleated RBC 0.000 Nucleated RBC % (auto) 0.0 PT INR APTT Anion Gap 13 Estim Creat Clear Calc 155.7 Estimated GFR > 60 Random Glucose 88 Lactic Acid 1.7 Calcium 8.5 Total Bilirubin 0.6 AST 26 ALT 27 Alkaline Phosphatase 122 H Total Protein 7.7 Albumin 2.9 L Lipase 13 Urine Color Dark Yellow Urine Appearance Cloudy Urine pH 6.5 Ur Specific [place] 1.015 Urine Protein 30 (1+) H Urine Glucose (UA) Negative Urine Ketones 15 Urine Blood Moderate (2+) H Urine Nitrite Negative Ur Leukocyte Esterase Large (3+) H Urine RBC 3-5 H Urine WBC >50 H Ur Squamous Epith Cells 0-2 Urine Bacteria 1+ Hyaline Casts 0-2 Influenza Type A (PCR) NEGATIVE Influenza Type B (PCR) NEGATIVE RSV RNA Qual (PCR) NEGATIVE SARS-CoV-2 RNA (RT-PCR) NEGATIVE 12/29/24 20:55 MCV MCH MCHC RDW Plt Count MPV Immature Gran % (Auto) Neut % (Auto) Lymph % (Auto) Pershing % (Auto) Eos % (Auto) Baso % (Auto) Lymph # (Auto) Pershing # (Auto) Eos # (Auto) Baso # (Auto) Abs Immat Gran (auto) Absolute Neuts (auto) Absolute Nucleated RBC Nucleated RBC % (auto) PT 13.6 H INR 1.2 H APTT 28.6 Anion Gap Estim Creat Clear Calc Estimated GFR Random Glucose Lactic Acid Calcium Total Bilirubin AST ALT Alkaline Phosphatase Total Protein Albumin Lipase Urine Color Urine Appearance Urine pH Ur Specific [place] Urine Protein Urine Glucose (UA) Urine Ketones Urine Blood Urine Nitrite Ur Leukocyte Esterase Urine RBC Urine WBC Ur Squamous Epith Cells Urine Bacteria Hyaline Casts Influenza Type A (PCR) Influenza Type B (PCR) RSV RNA Qual (PCR) SARS-CoV-2 RNA (RT-PCR) Imaging Radiologist's Impressions: Impressions Chest X-Ray 12/29/24 15:53 IMPRESSION: Unremarkable chest examination. Electronically signed by: Wily Oakes MD 12/29/2024 04:27 PM EST Assessment and Plan (1) Acute deep vein thrombosis of iliac vein: Status: Acute (2) Acute UTI: Status: Acute Plan Pt is a 29-year-old male with a PMH significant for asthma and autism? who presents to the ED for evaluation of fever x4-5 days. Pt will be admitted to the hospital for treatment and further evaluation acute thrombus of left common iliac vein and bilateral internal iliac veins and acute UTI with sepsis with concerns for genitourinary abscess vs neoplasm. Acute iliac vein thrombus CT showing left common iliac vein and bilateral internal iliac vein thrombus Unclear etiology: Pt denies IVDU, no family hx of hypercoagulable states, ?neoplasm Pt is started on heparin drip in the ED, will continue Consider vascular surgery consult depending on additional workup or General surgery input Follow CBC Acute UTI with sepsis Previously on doxy x3 days for UTI, reports compliance with p.o. medications Meets sepsis criteria with fever, tachycardia, tachypnea, and leukocytosis; lactic acid WNL Will treat with Zosyn, started 12/29/2024 Follow urine cultures ?Genitourinary abscess vs neoplasm Pt with green pus-like discharge from anus with pressing on left buttock CT showing thickening and nodularity of bladder wall secondary to infection or neoplasm, as well as infiltration of fat adjacent to the bladder, prostate gland, seminal vesicles, and within presacral space suggesting additional areas of involvement CTA additionally showed partial visualization of a mass or complex fluid collection involving posterior inferior base of the penis on left side and adjacent perineum, as well as possible fluid collection in adjacent left obturator internus muscle General surgery would like repeat CT with contrast with additional lower coverage as they feel it just misses visualizing source of infection General surgery consult Urology consult Treat as above with antibiotics Continue Elizalde Mild intermittent asthma Not in acute exacerbation Continue home inhalers Autism/mood disorder Continue hydroxyzine Full Code Attending:?Dr. Salinas DVT Prophylaxis: On heparin drip Pt will require a hospitalization of at least two nights for treatment of?acute thrombus of left common iliac vein and bilateral internal iliac veins and acute UTI with sepsis with concerns for genitourinary abscess vs neoplasm. Pt will require hospital level care for administration of IV antibiotics, heparin drip, and specialist consultation with General surgery and Urology for additional workup and possible surgical interventions if necessary. Quality Stroke Does the patient have a stroke diagnosis?: No VTE Prior VTE?: No VTE Risk Level:: Medical - moderate - high VTE Device Contraindication: Treatment Not Indicated VTE Drug Contraindication: N/A - Med Ordered
--- NOTE | 2024-12-29 22:19 | PHA.MEDREC ---
Addendum entered by Sharlene Deshpande RPh 12/29/24 22:32: [facility] reviewed Original Note: Pharmacy Consult ? Medication Reconciliation Pharmacy has completed the medication reconciliation. Spoke with patient and patients mother at bedside. Patients mother was able to confirm a majority of the patient medications, the patient confirmed he is not taking Loratadine or the Fluticasone and confirmed he started the Doxycycline 100mg regimen, taking it twice a day, about 3-4 days ago and took one this morning. The patient mother also confirmed he takes the Hydroxyzine 25mg tab as needed for Anxiety/Sleep. The patient and his mom confirmed he was able to take the Doxycycline this morning and everything else was last taken yesterday.
[2024-12-30] VITALS (10 sets, daily range): BP systolic 113–128; BP diastolic 60–87; PULSE 96–115; RESP 16–30; TEMP 36.7–38.2; O2SAT 97–99; BMI 28.9
[2024-12-30] MEDS: Piperacillin Sodium/Tazobactam 3.375 GM in 0.9 % Sodium Chloride 50 ML IV ×4 (01:39→20:35)
[2024-12-30] MEDS: Ketorolac Tromethamine 30 MG/ML VIAL IVPUSH (01:40)
[2024-12-30 03:48] LABS: Hematocrit 28.6 % (42.0-52.0); Hemoglobin 9.8 g/dl (14.0-18.0); Mean Corpuscular HGB Conc 34.3 g/dl (31.0-36.0); Mean Corpuscular Hemoglobin 27.8 pg (27.0-33.0); Mean Corpuscular Volume 81.3 fL (80.0-98.0); Platelet Count 514 X10*3/uL (160-400); Red Blood Count 3.52 X10*6/uL (4.60-5.80); White Blood Count 15.8 X10*3/uL (4.8-10.8)
[2024-12-30 03:55] LABS: INTERNATIONAL NORM RATIO 1.2 (0.9-1.1); Prothrombin Time 14.3 SEC (10.9-12.4)
[2024-12-30 03:58] LABS: PTT Heparin Drip 34.3 SEC (53-77.9)
[2024-12-30 04:00] LABS: Anion Gap 11 (12-20); Blood Urea Nitrogen 7 mg/dL (9-16); Calcium 7.9 mg/dL (8.4-10.2); Carbon Dioxide 20 mmol/L (22-29); Chloride 112 mmol/L (96-108); Creatinine Clr Calc Pharmacy 173.3; Estimated Glomerular Filt Rate > 60; Glucose Random 98 mg/dL (60-115); Potassium 3.3 mmol/L (3.3-5.1); Sodium 140 mmol/L (135-145)
[2024-12-30] MEDS: Heparin Sodium,Porcine 5,000 UNIT/ML VIAL 7000 UNIT IVPUSH (04:43)
--- NOTE | 2024-12-30 08:09 | PM.CNGS ---
History of Present Illness Consult details Consult date: 12/30/24 Requesting physician: Sanaz Holm Narrative: 29-year-old male patient presenting to the emergency department with complaints of fever for the past 4-5 days as high as 105 diagnosed with a urinary tract infection approximately 3 days ago. He was started on oral doxycycline and subsequently developed nausea, vomiting, abdominal pain, diarrhea and a painful lump in the left buttock. He also reports changes in the color of his urine becoming bright orange with bubbles. He denies any drainage from the lump in the left buttock. He subsequently presented to the emergency department and was noted to be febrile to 102.1, heart rate 111 with BP of 87/43. Laboratories revealed WBC of 17.1. Urinalysis was consistent with a UTI. CT abdomen and pelvis revealed evidence of a left common iliac and bilateral internal iliac vein thrombus, thickening and nodularity of the bladder wall possibly secondary to infection or neoplasm, infiltration of fat adjacent to the bladder, prostate gland, seminal vesicles and within presacral space, and partial visualization of a mass or complex fluid collection involving the posterior inferior base of the penis on the left side. Patient was admitted to the hospitalist service for IV antibiotics and IV heparin. Review of Systems Constitutional: Constitutional: Reports chills, Reports fatigue, Reports fever(s) and Reports poor appetite Cardiovascular: Cardiovascular: Reports rapid heart rate and Denies irregular heart rhythm Respiratory: Respiratory: Denies chest congestion, Denies cough and Denies stridor Gastrointestinal: Gastrointestinal: Reports abdominal pain, Denies heartburn, Denies diarrhea, Reports nausea and Reports vomiting Genitourinary: Genitourinary: Reports dysuria Musculoskeletal: Musculoskeletal: Reports as per HPI Integumentary/Breasts: Skin/Breast: Reports as per HPI Endocrine: Endocrine: Reports fatigue [facility] Past Medical History Medical History Mild intermittent asthma Autism Social History Social History Alcohol intake: never Patient Tobacco Use Status: Current someday Tobacco user Tobacco use type: Cigarette Cigarette Packs Per Day: 1 Smoked in Last 30 Days: No e-Cigarette/Vaping Use: Never Used Use of substances other than those prescribed or required for medical reasons: No Advance Directives: No Advance Directives Information Provided: Yes Current occupational status: unemployed Meds Allergies Allergy/AdvReac Type Severity Reaction Status Date / Time No Known Allergies Allergy Verified 12/29/24 09:16 [No Known Allergies*] Active Medications: Current Medications Acetaminophen (Acetaminophen 325 Mg Tablet) 650 mg PO Q6H PRN PRN Reason: Pain, Mild 1-3,fever,headache Albuterol Sulfate (Albuterol Sulfate (0.083%) 2.5 Mg/3 Ml Vial.Neb) 2.5 mg INHALE Q8H PRN PRN Reason: shortness of breath or wheezing Albuterol Sulfate (Albuterol Sulfate 90 Mcg 8 Gm Inhaler) 1 puff INHALE Q4H PRN PRN Reason: for wheezing Benzonatate (Benzonatate 100 Mg Capsule) 100 mg PO TID PRN PRN Reason: Cough Calcium Carbonate (Calcium Carbonate 750 Mg Tab.Chew) 750 mg PO Q4H PRN PRN Reason: Heartburn Heparin Sodium (Porcine) (Heparin Sodium,Porcine 5,000 Unit/Ml Vial) 3,500 unit IVPUSH PROTOCOL BOLUS PRN; Protocol PRN Reason: 40 unit/kg - Heparin Protocol Heparin Sodium (Porcine) (Heparin Sodium,Porcine 5,000 Unit/Ml Vial) 7,000 unit IVPUSH PROTOCOL BOLUS PRN; Protocol PRN Reason: 80 unit/kg - Heparin Protocol Last Admin: 12/30/24 04:43 Dose: 7,000 unit Hydroxyzine HCl (Hydroxyzine Hcl 25 Mg Tablet) 25 mg PO BEDTIME PRN PRN Reason: Anxiety/Sleep Heparin Sodium/Sodium Chloride (Heparin Sodium,Porcine/1/2ns) 25,000 unit in 250 mls @ 0 mls/hr IVCONT .Q0M [facility]; Protocol Last Titration: 12/30/24 04:40 Dose: 18 units/kg/hr, 15.75 mls/hr Piperacillin Sod/Tazobactam (Sod 3.375 gm/ Sodium Chloride) 50 mls @ 100 mls/hr IV Q6H [facility] Ketorolac Tromethamine (Ketorolac Tromethamine 30 Mg/Ml Vial) 30 mg IVPUSH Q6H PRN PRN Reason: Pain, Moderate(Pain Scale 4-6) Stop: 01/03/25 22:28 Last Admin: 12/30/24 01:40 Dose: 30 mg Magnesium Hydroxide (Milk Of Magnesia 30 Ml Oral.Susp) 30 ml PO DAILY PRN PRN Reason: Constipation Melatonin (Melatonin 3 Mg Tablet) 6 mg PO BEDTIME PRN PRN Reason: Insomnia Morphine Sulfate (Morphine Sulfate 4 Mg/Ml Cartridge) 4 mg IVPUSH Q4H PRN; Protocol PRN Reason: Pain, Severe (Pain Scale 7-10) Ondansetron HCl (Ondansetron Hcl 4 Mg/2 Ml Vial) 4 mg IVPUSH Q8H PRN PRN Reason: Nausea and Vomiting Sodium Chloride (0.9 % Sodium Chloride Flush 3 Ml Syringe) 3 ml IVFLUSH QSHIFT [facility] Last Admin: 12/30/24 07:53 Dose: Not Given Home Medications ?Medication ?Instructions ?Recorded ?Confirmed ?Last Taken ?Type doxycycline hyclate 100 mg capsule 100 mg PO BID 12/29/24 12/29/24 12/29/24 History hydroxyzine HCl 25 mg tablet 25 mg PO BEDTIME PRN Anxiety/Sleep 12/29/24 12/29/24 Unknown History Physical Exam Vital Signs: Vital Signs: Last Vital Signs Temp 98.9 F 12/30/24 03:42 Pulse 96 12/30/24 03:42 Resp 22 H 12/30/24 03:42 BP 119/72 12/30/24 03:42 Pulse Ox 97 12/30/24 03:42 O2 Del Method Room Air 12/30/24 03:42 BMI result Body Mass Index 29.3 Const: General: alert, awake and tired appearing Nutritional Appearance: average body habitus Orientation/consciousness: patient oriented x3 HEENT: Head: Yes normocephalic and Yes atraumatic Resp: Effort & Inspection: normal respiratory effort, no audible wheezes, no cough and no respiratory distress GI: Inspection: Yes normal to inspection Palpation (GI): Soft to palpation, nontender, no guarding and not rigid Back/Spine/Pelvis: Back/spine/pelvis image: 1. Vaguely palpable fullness in the left buttock away from the anal verge, tender to palpation. No erythema noted in the skin. No definite fluctuance appreciated. No discharge could be expressed. There is tenderness with palpation of the anal canal with apparent hypertrophy of the anal sphincter. Neuro: General: patient oriented x3 Extrem: Other: As noted above General: Yes normal to inspection Results Labs 12/30/24 03:41 12/30/24 03:41 Labs: Abnormal lab results 12/29/24 12/29/24 12/29/24 Range/Units 09:38 12:42 20:55 WBC 17.1 H (4.8-10.8) X10*3/uL RBC 4.10 L (4.60-5.80) X10*6/uL Hgb 11.2 L (14.0-18.0) g/dl Hct 34.0 L (42.0-52.0) % Plt Count 577 H (160-400) X10*3/uL MPV 9.3 L (9.4-12.4) fL Immature Gran % (Auto) 0.6 H (0.0-0.4) % Neut % (Auto) 82.6 H (45-73) % Lymph % (Auto) 10.0 L (20-40) % Abs Immat Gran (auto) 0.11 H (0.00-0.03) X10*3/uL Absolute Neuts (auto) 14.1 H (2.0-8.3) x10*3/uL PT 13.6 H (10.9-12.4) SEC INR 1.2 H (0.9-1.1) aPTT Heparin Protocol (53-77.9) SEC Chloride (96-108) mmol/L Carbon Dioxide (22-29) mmol/L Anion Gap (12-20) BUN (9-16) mg/dL Calcium (8.4-10.2) mg/dL Alkaline Phosphatase 122 H (39-117) U/L Albumin 2.9 L (3.5-5.0) g/dL Urine Protein 30 (1+) H (Neg-Trace) mg/dL Urine Blood Moderate (2+) H (Negative) Ur Leukocyte Esterase Large (3+) H (Negative) Urine RBC 3-5 H (0-2) /HPF Urine WBC >50 H (0-5) /HPF 12/30/24 Range/Units 03:41 WBC 15.8 H (4.8-10.8) X10*3/uL RBC 3.52 L (4.60-5.80) X10*6/uL Hgb 9.8 L (14.0-18.0) g/dl Hct 28.6 L (42.0-52.0) % Plt Count 514 H (160-400) X10*3/uL MPV 9.0 L (9.4-12.4) fL Immature Gran % (Auto) (0.0-0.4) % Neut % (Auto) (45-73) % Lymph % (Auto) (20-40) % Abs Immat Gran (auto) (0.00-0.03) X10*3/uL Absolute Neuts (auto) (2.0-8.3) x10*3/uL PT 14.3 H (10.9-12.4) SEC INR 1.2 H (0.9-1.1) aPTT Heparin Protocol 34.3 L (53-77.9) SEC Chloride 112 H (96-108) mmol/L Carbon Dioxide 20 L (22-29) mmol/L Anion Gap 11 L (12-20) BUN 7 L (9-16) mg/dL Calcium 7.9 L D (8.4-10.2) mg/dL Alkaline Phosphatase (39-117) U/L Albumin (3.5-5.0) g/dL Urine Protein (Neg-Trace) mg/dL Urine Blood (Negative) Ur Leukocyte Esterase (Negative) Urine RBC (0-2) /HPF Urine WBC (0-5) /HPF Short CBC 12/29/24 12/30/24 Range/Units 09:38 03:41 WBC 17.1 H 15.8 H (4.8-10.8) X10*3/uL Hgb 11.2 L 9.8 L (14.0-18.0) g/dl Hct 34.0 L 28.6 L (42.0-52.0) % Plt Count 577 H 514 H (160-400) X10*3/uL BMP 12/29/24 12/30/24 09:38 03:41 Sodium 139 140 Potassium 3.5 3.3 Chloride 106 112 H Carbon Dioxide 24 20 L BUN 11 7 L Creatinine 0.77 0.67 Calcium 8.5 7.9 L D Liver Function 12/29/24 Range/Units 09:38 Total Bilirubin 0.6 (0.0-1.0) mg/dL AST 26 (5-37) U/L ALT 27 (0-40) U/L Alkaline Phosphatase 122 H (39-117) U/L Albumin 2.9 L (3.5-5.0) g/dL Urine 12/29/24 Range/Units 12:42 Urine Color Dark Yellow Urine Appearance Cloudy Urine pH 6.5 (5.0-9.0) Ur Specific [place] 1.015 (1.005-1.025) Urine Protein 30 (1+) H (Neg-Trace) mg/dL Urine Glucose (UA) Negative (Negative) mg/dL All other labs normal. Assessment and Plan (1) Acute deep vein thrombosis of iliac vein: Qualifiers: Laterality: bilateral Qualified Code(s): I82.423 - Acute embolism and thrombosis of iliac vein, bilateral Status: Acute (2) Sepsis: Qualifiers: Sepsis type: sepsis due to unspecified organism Sepsis acute organ dysfunction status: unspecified Qualified Code(s): A41.9 - Sepsis, unspecified organism Status: Acute Plan 29-year-old male patient presenting with fever and chill found to have a urinary tract infection and CT findings of bladder wall changes, iliac vein thrombus, and possible mass or fluid collection in the left buttock. Symptoms are suggestive of a possible abscess although a definite collection is not seen on CT scan. A repeat CT scan which extends lower into the buttock would be helpful to better visualize the collection in the left buttock. Ultrasound of the left buttock mass with possible ultrasound-guided aspiration of may also clarify the diagnosis. Procedures Date of Service Date of Service: 12/30/24
[2024-12-30] MEDS: iohexoL 350 MG/ML 100 ML INFUS..BTL IV (09:58)
[2024-12-30] MEDS: Morphine Sulfate 4 MG/ML CARTRIDGE IVPUSH ×3 (10:50→20:36)
[2024-12-30 10:55] LABS: PTT Heparin Drip 48.3 SEC (53-77.9)
[2024-12-30] MEDS: Heparin Sodium,Porcine 5,000 UNIT/ML VIAL 3500 UNIT IVPUSH ×2 (11:30→18:11)
--- NOTE | 2024-12-30 11:31 | P.PNIM_ITS ---
Subjective Subjective Date of Service: 12/30/24 Interval History: seen and examined this morning follow up for UTI, ?buttock abscess, DVT reporting buttock pain, fever Review of Systems Review of Systems: Yes all other systems are reviewed and are negative Constitutional Constitutional: Denies chills and Reports fever(s) Cardiovascular Cardiovascular: Denies chest pain, Denies palpitations and Denies dyspnea Respiratory Respiratory: Denies cough and Denies dyspnea Gastrointestinal Gastrointestinal: Denies abdominal pain, Denies nausea and Denies vomiting Endocrine Endocrine: Denies palpitations Physical Exam 2 Vital Signs: Vital Signs: Last Vital Signs Temp 98.9 F 12/30/24 10:37 Pulse 100 12/30/24 10:37 Resp 16 12/30/24 10:37 BP 123/84 12/30/24 10:37 Pulse Ox 97 12/30/24 10:37 O2 Del Method Room Air 12/30/24 10:37 BMI result Body Mass Index 29.3 Const: Other: ill appearing General: alert and awake Nutritional Appearance: average body habitus Orientation/consciousness: patient oriented x3 Resp: Effort & Inspection: normal respiratory effort, able to speak in complete sentences, no respiratory distress and no use of accessory muscles A uscultation: clear to auscultation bilaterally Cardio: Rate: tachycardic GI: Inspection: No distended Palpation (GI): Soft to palpation and nontender Neuro: General: patient oriented x3, moves all extremities and CN's II-XI intact bilaterally Extrem: General: Yes no pedal edema Objective Data Active Medications Acetaminophen (Acetaminophen 325 Mg Tablet) 650 mg PO Q6H PRN PRN Reason: Pain, Mild 1-3,fever,headache Albuterol Sulfate (Albuterol Sulfate (0.083%) 2.5 Mg/3 Ml Vial.Neb) 2.5 mg INHALE Q8H PRN PRN Reason: shortness of breath or wheezing Albuterol Sulfate (Albuterol Sulfate 90 Mcg 8 Gm Inhaler) 1 puff INHALE Q4H PRN PRN Reason: for wheezing Benzonatate (Benzonatate 100 Mg Capsule) 100 mg PO TID PRN PRN Reason: Cough Calcium Carbonate (Calcium Carbonate 750 Mg Tab.Chew) 750 mg PO Q4H PRN PRN Reason: Heartburn Heparin Sodium (Porcine) (Heparin Sodium,Porcine 5,000 Unit/Ml Vial) 3,500 unit IVPUSH PROTOCOL BOLUS PRN; Protocol PRN Reason: 40 unit/kg - Heparin Protocol Heparin Sodium (Porcine) (Heparin Sodium,Porcine 5,000 Unit/Ml Vial) 7,000 unit IVPUSH PROTOCOL BOLUS PRN; Protocol PRN Reason: 80 unit/kg - Heparin Protocol Last Admin: 12/30/24 04:43 Dose: 7,000 unit Documented By: LETA Hydroxyzine HCl (Hydroxyzine Hcl 25 Mg Tablet) 25 mg PO BEDTIME PRN PRN Reason: Anxiety/Sleep Heparin Sodium/Sodium Chloride (Heparin Sodium,Porcine/1/2ns) 25,000 unit in 250 mls @ 0 mls/hr IVCONT .Q0M [facility]; Protocol Last Titration: 12/30/24 11:14 Dose: 20 units/kg/hr, 17.5 mls/hr Documented By: MELLY Co-signed By: HANK Piperacillin Sod/Tazobactam (Sod 3.375 gm/ Sodium Chloride) 50 mls @ 100 mls/hr IV Q6H [facility] Last Infusion: 12/30/24 11:16 Dose: Infused Documented By: MELLY Vancomycin HCl (Vancomycin/Ns) 2,000 mg in 500 mls @ 250 mls/hr IV ONCE ONE Stop: 12/30/24 13:29 Magnesium Hydroxide (Milk Of Magnesia 30 Ml Oral.Susp) 30 ml PO DAILY PRN PRN Reason: Constipation Melatonin (Melatonin 3 Mg Tablet) 6 mg PO BEDTIME PRN PRN Reason: Insomnia Morphine Sulfate (Morphine Sulfate 4 Mg/Ml Cartridge) 4 mg IVPUSH Q4H PRN; Protocol PRN Reason: Pain, Severe (Pain Scale 7-10) Last Admin: 12/30/24 10:50 Dose: 4 mg Documented By: REID Ondansetron HCl (Ondansetron Hcl 4 Mg/2 Ml Vial) 4 mg IVPUSH Q8H PRN PRN Reason: Nausea and Vomiting Pharmacy Consult (Consult Rx Vancomycin Dosing) 1 each MISCELLANE DAILY PRN PRN Reason: Consult order Sodium Chloride (0.9 % Sodium Chloride Flush 3 Ml Syringe) [facility] Last Admin: 12/30/24 07:53 Dose: Not Given Documented By: REID Non-Admin Reason: IV Running Labs 12/30/24 03:41 12/30/24 03:41 Labs: Laboratory Results - last 24 hr 12/29/24 12/29/24 12/29/24 12:42 16:50 20:55 MCV MCH MCHC RDW Plt Count MPV Absolute Nucleated RBC Nucleated RBC % (auto) PT 13.6 H INR 1.2 H APTT 28.6 aPTT Heparin Protocol Anion Gap Estim Creat Clear Calc Estimated GFR Random Glucose Lactic Acid 1.7 Calcium Urine Color Dark Yellow Urine Appearance Cloudy Urine pH 6.5 Ur Specific [place] 1.015 Urine Protein 30 (1+) H Urine Glucose (UA) Negative Urine Ketones 15 Urine Blood Moderate (2+) H Urine Nitrite Negative Ur Leukocyte Esterase Large (3+) H Urine RBC 3-5 H Urine WBC >50 H Ur Squamous Epith Cells 0-2 Urine Bacteria 1+ Hyaline Casts 0-2 12/30/24 12/30/24 03:41 10:40 MCV 81.3 MCH 27.8 MCHC 34.3 RDW 14.0 Plt Count 514 H MPV 9.0 L Absolute Nucleated RBC 0.000 Nucleated RBC % (auto) 0.0 PT 14.3 H INR 1.2 H APTT aPTT Heparin Protocol 34.3 L 48.3 L D Anion Gap 11 L Estim Creat Clear Calc 173.3 Estimated GFR > 60 Random Glucose 98 Lactic Acid Calcium 7.9 L D Urine Color Urine Appearance Urine pH Ur Specific [place] Urine Protein Urine Glucose (UA) Urine Ketones Urine Blood Urine Nitrite Ur Leukocyte Esterase Urine RBC Urine WBC Ur Squamous Epith Cells Urine Bacteria Hyaline Casts Assessment and Plan (1) Sepsis: Status: Acute (2) Acute deep vein thrombosis (DVT) of iliac vein of both lower extremities: Status: Acute (3) Acute UTI: Status: Acute Plan This is a 29-year-old male with a PMH significant for asthma and autism who presents to the ED for evaluation of fever x4-5 days found to have multiple issues including acute thrombus of left common iliac vein and bilateral internal iliac veins and acute UTI with sepsis with concerns for genitourinary abscess vs neoplasm. Acute UTI with sepsis Treated with doxy as outpatient Meets sepsis criteria with fever, tachycardia, tachypnea, and leukocytosis; lactic acid WNL. no severe features. Continue IV Zosyn, started 12/29/2024 Follow urine culture, blood cultures pelvic abscess repeat Pelvic CT with complex fluid collection at at base of penis with possible communication to more complex fluid collection in the left ischorectal fossa seen by General surgery - plan for needle aspiration of left buttock Urology consult pending will add vancomycin and continue IV zosyn Continue Elizalde follow blood cultures Acute iliac vein thrombus CT showing left common iliac vein and bilateral internal iliac vein thrombus Unclear etiology. pt does have family history of blood clots will get b/l doppler US to assess extension of DVT vascular surgery consulted Mild intermittent asthma Not in acute exacerbation Continue home inhalers Autism/mood disorder Continue hydroxyzine Full Code DVT Prophylaxis:heparin drip Pt will require ongoing inpatient hospitalization of at least two nights for treatment of?acute thrombus of left common iliac vein and bilateral internal iliac veins and acute UTI with sepsis with concerns for genitourinary abscess vs neoplasm. Pt will require hospital level care for administration of IV antibiotics, heparin drip, and specialist consultation with General surgery and Urology for additional workup and possible surgical interventions if necessary. Quality Stroke Does the patient have a stroke diagnosis?: No VTE Prior VTE?: No VTE Risk Level:: Medical - moderate - high VTE Device Contraindication: Treatment Not Indicated VTE Drug Contraindication: N/A - Med Ordered
[2024-12-30] MEDS: vancomycin/NS 2,000 MG/500 ML PLAST..BAG 250 MG IV (11:35)
--- NOTE | 2024-12-30 12:06 | P.CONGS_ITS ---
<Statement entered by Maicol Price MD - 01/02/25 07:41> I have seen and evaluated the patient and agree with history, findings, assessment and plan documented by Karin Yousif PA-c. History of Present Illness Consult details Consult date: 12/30/24 Narrative: We were consulted for William, a pleasant 29 yo male, for findings on abd/pelvis CT of left common iliac vein and bilateral internal iliac vein thrombus. He presented to the ER last evening with concerns of a fever of 104- 105 F for 4-5 days with a recent diagnosis of a UTI on p.o. doxy for 3 days. He also presented with green discharge from his anus. He was started on IV antibiotics with Gen surg consult. He was admitted for IV antibiotics. He is willing complaint today is generally feeling very poor. He states he is having difficulty walking but he states it is due to the abscess near his anus, which he states has been there for approximately 1 week. He denies any claudication issues, lower abdominal pain, or any lower extremity pain or swelling. He denies any history of blood clots or PE. He denies any filters or stent placements. He states he is pretty healthy and only has a medical history of asthma. He has a history of high functioning autism. He states he has never been a cigarette smoker; however, there is noted in his chart that he has a 1 pack per day smoker. He denies any history of diabetes. He does not currently work and does spend equal amount of times on his feet and sitting. His mother states that she is currently on lifelong Coumadin due to history of DVT and PE status post with William. She states she has been tested for all clotting disorders and has been negative. William has not been tested for any clotting disorders. Review of Systems 2 Constitutional: Constitutional: Reports as per HPI ENT: Reports Normal hearing present and Denies dizziness Cardiovascular: Cardiovascular: Reports as per HPI, Denies chest pain, Denies chest pain at rest, Denies chest pain with activity, Denies dyspnea and Denies dyspnea on exertion Respiratory: Respiratory: Reports as per HPI, Denies cough, Denies dyspnea and Denies dyspnea on exertion Gastrointestinal: Gastrointestinal: Reports as per HPI, Denies abdominal pain, Denies nausea and Denies vomiting Musculoskeletal: Musculoskeletal: Denies numbness Integumentary/Breasts: Skin/Breast: Reports as per HPI, Denies erythema and Denies wounds Neurologic: Reports Normal hearing present, Denies dizziness, Denies numbness and Denies Sensory deficit (Neuro) Psychiatric: Psychiatric: Reports no additional psychiatric complaints Endocrine: Endocrine: Reports no additional endocrine complaints [facility] Past Medical History Medical History Mild intermittent asthma Autism Social History Social History Household Members: None Housing: Apartment Alcohol intake: never Patient Tobacco Use Status: Never used Tobacco Tobacco use type: Cigarette Cigarette Packs Per Day: 1 e-Cigarette/Vaping Use: Never Used Current occupational status: unemployed Meds Allergies Allergy/AdvReac Type Severity Reaction Status Date / Time No Known Allergies Allergy Verified 12/29/24 09:16 [No Known Allergies*] Active Medications: Current Medications Acetaminophen (Acetaminophen 325 Mg Tablet) 650 mg PO Q6H PRN PRN Reason: Pain, Mild 1-3,fever,headache Albuterol Sulfate (Albuterol Sulfate (0.083%) 2.5 Mg/3 Ml Vial.Neb) 2.5 mg INHALE Q8H PRN PRN Reason: shortness of breath or wheezing Albuterol Sulfate (Albuterol Sulfate 90 Mcg 8 Gm Inhaler) 1 puff INHALE Q4H PRN PRN Reason: for wheezing Benzonatate (Benzonatate 100 Mg Capsule) 100 mg PO TID PRN PRN Reason: Cough Calcium Carbonate (Calcium Carbonate 750 Mg Tab.Chew) 750 mg PO Q4H PRN PRN Reason: Heartburn Heparin Sodium (Porcine) (Heparin Sodium,Porcine 5,000 Unit/Ml Vial) 3,500 unit IVPUSH PROTOCOL BOLUS PRN; Protocol PRN Reason: 40 unit/kg - Heparin Protocol Last Admin: 12/30/24 11:30 Dose: 3,500 unit Heparin Sodium (Porcine) (Heparin Sodium,Porcine 5,000 Unit/Ml Vial) 7,000 unit IVPUSH PROTOCOL BOLUS PRN; Protocol PRN Reason: 80 unit/kg - Heparin Protocol Last Admin: 12/30/24 04:43 Dose: 7,000 unit Hydroxyzine HCl (Hydroxyzine Hcl 25 Mg Tablet) 25 mg PO BEDTIME PRN PRN Reason: Anxiety/Sleep Heparin Sodium/Sodium Chloride (Heparin Sodium,Porcine/1/2ns) 25,000 unit in 250 mls @ 0 mls/hr IVCONT .Q0M [facility]; Protocol Last Titration: 12/30/24 11:14 Dose: 20 units/kg/hr, 17.5 mls/hr Piperacillin Sod/Tazobactam (Sod 3.375 gm/ Sodium Chloride) 50 mls @ 100 mls/hr IV Q6H [facility] Last Infusion: 12/30/24 11:16 Dose: Infused Vancomycin HCl (Vancomycin/Ns) 2,000 mg in 500 mls @ 250 mls/hr IV ONCE ONE Stop: 12/30/24 13:29 Last Admin: 12/30/24 11:59 Dose: Not Given Magnesium Hydroxide (Milk Of Magnesia 30 Ml Oral.Susp) 30 ml PO DAILY PRN PRN Reason: Constipation Melatonin (Melatonin 3 Mg Tablet) 6 mg PO BEDTIME PRN PRN Reason: Insomnia Morphine Sulfate (Morphine Sulfate 4 Mg/Ml Cartridge) 4 mg IVPUSH Q4H PRN; Protocol PRN Reason: Pain, Severe (Pain Scale 7-10) Last Admin: 12/30/24 10:50 Dose: 4 mg Ondansetron HCl (Ondansetron Hcl 4 Mg/2 Ml Vial) 4 mg IVPUSH Q8H PRN PRN Reason: Nausea and Vomiting Pharmacy Consult (Consult Rx Vancomycin Dosing) 1 each MISCELLANE DAILY PRN PRN Reason: Consult order Sodium Chloride (0.9 % Sodium Chloride Flush 3 Ml Syringe) 3 ml IVFLUSH [facility] Last Admin: 12/30/24 07:53 Dose: Not Given Home Medications ?Medication ?Instructions ?Recorded ?Confirmed ?Last Taken ?Type doxycycline hyclate 100 mg capsule 100 mg PO BID 12/29/24 12/29/24 12/29/24 History hydroxyzine HCl 25 mg tablet 25 mg PO BEDTIME PRN Anxiety/Sleep 12/29/24 12/29/24 Unknown History Physical Exam 2 Vital Signs: Vital Signs: Last Vital Signs Temp 98.9 F 12/30/24 10:37 Pulse 100 12/30/24 10:37 Resp 16 12/30/24 10:37 BP 123/84 12/30/24 10:37 Pulse Ox 97 12/30/24 10:37 O2 Del Method Room Air 12/30/24 10:37 BMI result Body Mass Index 28.9 Const: Other: Patient appears very tired and weak. Patient appears pale. General: no acute distress, ill appearing and lethargic O rientation/consciousness: patient oriented x3 and lethargic HEENT: Ears: hearing grossly normal bilaterally Resp: Effort & Inspection: normal respiratory effort and able to speak in complete sentences Auscultation: clear to auscultation bilaterally Cardio: Rate: regular rate Rhythm: regular rhythm Heart sounds: S1 normal heart sound present and S2 normal heart sound present Bruits: no abdominal aortic bruits, no carotid bruits, no femoral bruits and no renal bruits GI: Palpation (GI): No Abdominal aortic bruit present Neuro: General: patient oriented x3 Cranial nerves: Yes Normal hearing present Sensory Exam: No Sensory deficit (Neuro) Extrem: Other: Bilateral lower extremities: No swelling or discoloration noted. Palpable DP pulses. Results Labs 12/30/24 03:41 12/30/24 03:41 Labs: Abnormal lab results 12/29/24 12/29/24 12/30/24 Range/Units 12:42 20:55 03:41 WBC 15.8 H (4.8-10.8) X10*3/uL RBC 3.52 L (4.60-5.80) X10*6/uL Hgb 9.8 L (14.0-18.0) g/dl Hct 28.6 L (42.0-52.0) % Plt Count 514 H (160-400) X10*3/uL MPV 9.0 L (9.4-12.4) fL PT 13.6 H 14.3 H (10.9-12.4) SEC INR 1.2 H 1.2 H (0.9-1.1) aPTT Heparin Protocol 34.3 L (53-77.9) SEC Chloride 112 H (96-108) mmol/L Carbon Dioxide 20 L (22-29) mmol/L Anion Gap 11 L (12-20) BUN 7 L (9-16) mg/dL Calcium 7.9 L D (8.4-10.2) mg/dL Urine Protein 30 (1+) H (Neg-Trace) mg/dL Urine Blood Moderate (2+) H (Negative) Ur Leukocyte Esterase Large (3+) H (Negative) Urine RBC 3-5 H (0-2) /HPF Urine WBC >50 H (0-5) /HPF 12/30/24 Range/Units 10:40 WBC (4.8-10.8) X10*3/uL RBC (4.60-5.80) X10*6/uL Hgb (14.0-18.0) g/dl Hct (42.0-52.0) % Plt Count (160-400) X10*3/uL MPV (9.4-12.4) fL PT (10.9-12.4) SEC INR (0.9-1.1) aPTT Heparin Protocol 48.3 L D (53-77.9) SEC Chloride (96-108) mmol/L Carbon Dioxide (22-29) mmol/L Anion Gap (12-20) BUN (9-16) mg/dL Calcium (8.4-10.2) mg/dL Urine Protein (Neg-Trace) mg/dL Urine Blood (Negative) Ur Leukocyte Esterase (Negative) Urine RBC (0-2) /HPF Urine WBC (0-5) /HPF Short CBC 12/30/24 Range/Units 03:41 WBC 15.8 H (4.8-10.8) X10*3/uL Hgb 9.8 L (14.0-18.0) g/dl Hct 28.6 L (42.0-52.0) % Plt Count 514 H (160-400) X10*3/uL BMP 12/30/24 03:41 Sodium 140 Potassium 3.3 Chloride 112 H Carbon Dioxide 20 L BUN 7 L Creatinine 0.67 Calcium 7.9 L D Urine 12/29/24 Range/Units 12:42 Urine Color Dark Yellow Urine Appearance Cloudy Urine pH 6.5 (5.0-9.0) Ur Specific [place] 1.015 (1.005-1.025) Urine Protein 30 (1+) H (Neg-Trace) mg/dL Urine Glucose (UA) Negative (Negative) mg/dL All other labs normal. Assessment and Plan (1) Acute deep vein thrombosis (DVT) of iliac vein of both lower extremities: Status: Acute Plan We are consulted on William for findings on CT of left common iliac vein and bilateral internal iliac vein thrombus. He initially presented to the ER due to high fevers and UTI like symptoms. He also has an abscess in the anal area. He denies any claudication symptoms as well as abdominal pain or lower extremity pain and swelling. His mother has a history of DVT/PE but the patient does not. We will continue him on heparin. We are awaiting the results of the duplex ultrasound. At this time, there is no acute vascular surgical intervention. We will continue to monitor and reassess after the duplex is completed. Thank you for the consult. If there are any questions or concerns, please do not hesitate to reach out to us. Procedures Date of Service Date of Service: 12/30/24
--- NOTE | 2024-12-30 12:15 | PHA.PROG ---
Admission Date/Time: December 29, 2024 22:29 Indication: SSSI Weight in k.2 kg Serum Creatinine - Last 168 Hours 12/29/24 12/30/24 09:38 03:41 Creatinine 0.77 0.67 Estimated CrCl and GFR - Last 168 Hours 12/29/24 12/30/24 09:38 03:41 Estim Creat Clear Calc 155.7 173.3 Estimated GFR > 60 > 60 Vancomycin Loading Dose: 2,000 mg Current Vancomycin Dosing Regimen: 750mg q8h Vancomycin Monitoring using AUC goal of 400 - 600 range with trough as surrogate marker: 416, predicted trough 13.6 Date and Time for next Vancomycin Level to be drawn: 12/31 @ 1000 Pharmacist Comments on Vancomycin Plan: Vancomycin dosing will take advantage of [employer] as a clinical decision support tool that uses Bayesian modeling to calculate individual patient's pharmacokinetic parameters and forecast the patient's drug concentration time course with the target goal AUC 24 range of 400 - 600 mg/L/hr.
--- NOTE | 2024-12-30 12:51 | P.OP_ITS ---
Operative Note Operative Note Date of Service: 12/30/24 Narrative: Preoperative diagnosis: Left ischial rectal abscess Postoperative diagnosis: Same Procedure: Incision and drainage left ischial rectal abscess Surgeon: Xavier Domingo MD Clinical Operations Consultant: None Anesthesia: Lidocaine 1% with epinephrine Indications for procedure: 29-year-old male patient presenting with complaints of pain in the perirectal region. Patient was found to have an elevated WBC. CT reveals a left buttock abscess. On examination however no definite area of redness was identified. Operative findings: Needle aspiration produced a thick purulent fluid. Subsequently incision and drainage produced additional thick purulent fluid approximately 20 mL Specimen: Wound culture Estimated blood loss: 3 mL Complications: None Procedure details: The procedure was performed at the bedside. The site of procedure was confirmed by the patient in the left buttock near the perianal skin. After assuring informed consent the skin was prepped with Betadine and draped in a sterile fashion. Local anesthesia was then infiltrated in the overlying skin. An 18 gauge needle was then inserted into the area of maximal tenderness. Thick purulent fluid was noted approximately 3 cm below the skin. A culture of the fluid was obtained. Using the Finder needle as a guide an incision was made with an 11 blade. A forceps was then used to open the abscess cavity and drained the purulence. Wounds were irrigated with saline solution. Wounds were then packed with quarter-inch Nu Gauze. Sterile dressings were then applied. The patient tolerated the procedure well.
[2024-12-30] MEDS: Heparin Sodium,Porcine/1/2NS 25,000 UNIT/250 ML IV.SOLN 17.5 UNIT IVCONT (13:53)
[2024-12-30] MEDS: Lactated Ringers 1,000 ML 100 ML IVCONT (13:53)
--- NOTE | 2024-12-30 14:11 | MHC.CM.PN ---
CM met with Patient at bedside with his RN, who indicated that Patient expressed being tired. Patient was willing to address IMM and CM gave him the original and a copy has been placed on the chart. Patient states that he lives alone and is independent. Home is the Patient's goal and CM has initiated and will follow for dc planning. PCP/OPERATIONS EXECUTIVE is Ramiro Denny. Patient may need assist with transport at time of dc.
[2024-12-30] MEDS: 0.9 % Sodium Chloride Flush 3 ML SYRINGE IVFLUSH ×2 (15:13→20:36)
[2024-12-30] MEDS: Acetaminophen 325 MG TABLET 650 MG PO ×2 (15:18→20:54)
--- NOTE | 2024-12-30 17:07 | P.CNUR_ITS ---
History of Present Illness Consult details Consult date: 12/30/24 Narrative: William is a 29-year-old male who states that about 3 weeks ago he thought he was passing a kidney stone and had UTI symptoms he was seen at urgent care and given antibiotics. About week ago he felt a lump on his buttock area which has worsened and become painful. On clinical examination there is no significant cellulitis with swelling of the scrotum or penile shaft. Recommend outpatient follow-up with Urology with consideration for outpatient cystoscopy. 12/29/24--ctap--Thickening and nodularity of the bladder wall may be secondary to infection or neoplasm. There is also infiltration of fat adjacent to the bladder, prostate gland, seminal vesicles and within the presacral space suggesting additional areas of involvement. Review of Systems 2 Review of Systems: Yes all other systems are reviewed and are negative Constitutional: Constitutional: Reports no additional constitutional complaints Eyes: Eyes: Reports no additional eye complaints ENT: Reports system reviewed and no additional complaints, except as documented Cardiovascular: Cardiovascular: Reports no additional cardiovascular complaints Respiratory: Respiratory: Reports no additional respiratory complaints Gastrointestinal: Gastrointestinal: Reports no additional gastrointestinal complaints Genitourinary: Genitourinary: Reports as per HPI Musculoskeletal: Musculoskeletal: Reports no additional musculoskeletal complaints Integumentary/Breasts: Skin/Breast: Reports system reviewed and no additional complaints, except as docu Neurologic: Reports system reviewed and no additional complaints, except as documented Psychiatric: Psychiatric: Reports no additional psychiatric complaints Endocrine: Endocrine: Reports no additional endocrine complaints Hematologic/Lymphatic: Hematologic/Lymphatic: Reports no additional hematologic/lymphatic complaints Allergic/Immunologic: Allergic/Immunologic: Reports no additional allergic/immunologic complaints [facility] Past Medical History Medical History Mild intermittent asthma Autism Social History Social History Household Members: None Housing: Apartment Alcohol intake: never Patient Tobacco Use Status: Never used Tobacco Tobacco use type: Cigarette Cigarette Packs Per Day: 1 e-Cigarette/Vaping Use: Never Used service: No Current occupational status: unemployed Meds Allergies Allergy/AdvReac Type Severity Reaction Status Date / Time No Known Allergies Allergy Verified 12/29/24 09:16 [No Known Allergies*] Active Medications: Current Medications Acetaminophen (Acetaminophen 325 Mg Tablet) 650 mg PO Q6H PRN PRN Reason: Pain, Mild 1-3,fever,headache Last Admin: 12/30/24 15:18 Dose: 650 mg Albuterol Sulfate (Albuterol Sulfate (0.083%) 2.5 Mg/3 Ml Vial.Neb) 2.5 mg INHALE Q8H PRN PRN Reason: shortness of breath or wheezing Albuterol Sulfate (Albuterol Sulfate 90 Mcg 8 Gm Inhaler) 1 puff INHALE Q4H PRN PRN Reason: for wheezing Benzonatate (Benzonatate 100 Mg Capsule) 100 mg PO TID PRN PRN Reason: Cough Calcium Carbonate (Calcium Carbonate 750 Mg Tab.Chew) 750 mg PO Q4H PRN PRN Reason: Heartburn Heparin Sodium (Porcine) (Heparin Sodium,Porcine 5,000 Unit/Ml Vial) 3,500 unit IVPUSH PROTOCOL BOLUS PRN; Protocol PRN Reason: 40 unit/kg - Heparin Protocol Last Admin: 12/30/24 11:30 Dose: 3,500 unit Heparin Sodium (Porcine) (Heparin Sodium,Porcine 5,000 Unit/Ml Vial) 7,000 unit IVPUSH PROTOCOL BOLUS PRN; Protocol PRN Reason: 80 unit/kg - Heparin Protocol Last Admin: 12/30/24 04:43 Dose: 7,000 unit Hydroxyzine HCl (Hydroxyzine Hcl 25 Mg Tablet) 25 mg PO BEDTIME PRN PRN Reason: Anxiety/Sleep Heparin Sodium/Sodium Chloride (Heparin Sodium,Porcine/1/2ns) 25,000 unit in 250 mls @ 0 mls/hr IVCONT .Q0M [facility]; Protocol Last Admin: 12/30/24 13:53 Dose: 20 units/kg/hr, 17.5 mls/hr Piperacillin Sod/Tazobactam (Sod 3.375 gm/ Sodium Chloride) 50 mls @ 100 mls/hr IV Q6H [facility] Last Infusion: 12/30/24 15:48 Dose: Infused Vancomycin HCl 750 mg/ Sodium (Chloride) 265 mls @ 265 mls/hr IV Q8H [facility] Lactated Ringer's (Lr) 1,000 mls @ 100 mls/hr IVCONT .Q10H [facility] Last Admin: 12/30/24 13:53 Dose: 100 mls/hr Magnesium Hydroxide (Milk Of Magnesia 30 Ml Oral.Susp) 30 ml PO DAILY PRN PRN Reason: Constipation Melatonin (Melatonin 3 Mg Tablet) 6 mg PO BEDTIME PRN PRN Reason: Insomnia Morphine Sulfate (Morphine Sulfate 4 Mg/Ml Cartridge) 4 mg IVPUSH Q4H PRN; Protocol PRN Reason: Pain, Severe (Pain Scale 7-10) Last Admin: 12/30/24 15:11 Dose: 4 mg Ondansetron HCl (Ondansetron Hcl 4 Mg/2 Ml Vial) 4 mg IVPUSH Q8H PRN PRN Reason: Nausea and Vomiting Pharmacy Consult (Consult Rx Vancomycin Dosing) 1 each MISCELLANE DAILY PRN PRN Reason: Consult order Sodium Chloride (0.9 % Sodium Chloride Flush 3 Ml Syringe) 3 ml IVFLUSH [facility] Last Admin: 12/30/24 15:13 Dose: 3 ml Home Medications ?Medication ?Instructions ?Recorded ?Confirmed ?Last Taken ?Type doxycycline hyclate 100 mg capsule 100 mg PO BID 12/29/24 12/29/24 12/29/24 History hydroxyzine HCl 25 mg tablet 25 mg PO BEDTIME PRN Anxiety/Sleep 12/29/24 12/29/24 Unknown History Physical Exam 2 Vital Signs: Vital Signs: Last Vital Signs Temp 100.4 F 12/30/24 15:12 Pulse 104 H 12/30/24 15:12 Resp 18 12/30/24 15:12 BP 123/71 12/30/24 15:12 Pulse Ox 97 12/30/24 15:12 O2 Del Method Room Air 12/30/24 15:12 BMI result Body Mass Index 28.9 Const: General: healthy appearing, no acute distress and well developed O rientation/consciousness: patient oriented x3 HEENT: Head: Yes normocephalic and Yes atraumatic Eyes: Conjunctivae: conjunctivae normal Neck: Neck: Yes normal visual inspection Chest: Chest palpation & inspection: normal inspection of the chest Resp: Effort & Inspection: normal respiratory effort Cardio: Rate: regular rate GI: Inspection: Yes normal to inspection Palpation (GI): Soft to palpation : Penis: normal penis Scrotum: scrotum normal Skin: General skin exam: no rashes or lesions noted Neuro: General: patient oriented x3 Psych: Appearance: grossly normal Results Labs 12/30/24 03:41 12/30/24 03:41 Labs: Abnormal lab results 12/29/24 12/30/24 12/30/24 Range/Units 20:55 03:41 10:40 WBC 15.8 H (4.8-10.8) X10*3/uL RBC 3.52 L (4.60-5.80) X10*6/uL Hgb 9.8 L (14.0-18.0) g/dl Hct 28.6 L (42.0-52.0) % Plt Count 514 H (160-400) X10*3/uL MPV 9.0 L (9.4-12.4) fL PT 13.6 H 14.3 H (10.9-12.4) SEC INR 1.2 H 1.2 H (0.9-1.1) aPTT Heparin Protocol 34.3 L 48.3 L D (53-77.9) SEC Chloride 112 H (96-108) mmol/L Carbon Dioxide 20 L (22-29) mmol/L Anion Gap 11 L (12-20) BUN 7 L (9-16) mg/dL Calcium 7.9 L D (8.4-10.2) mg/dL Short CBC 12/30/24 Range/Units 03:41 WBC 15.8 H (4.8-10.8) X10*3/uL Hgb 9.8 L (14.0-18.0) g/dl Hct 28.6 L (42.0-52.0) % Plt Count 514 H (160-400) X10*3/uL BMP 12/30/24 03:41 Sodium 140 Potassium 3.3 Chloride 112 H Carbon Dioxide 20 L BUN 7 L Creatinine 0.67 Calcium 7.9 L D Urine 12/29/24 Range/Units 12:42 Urine Color Dark Yellow Urine Appearance Cloudy Urine pH 6.5 (5.0-9.0) Ur Specific [place] 1.015 (1.005-1.025) Urine Protein 30 (1+) H (Neg-Trace) mg/dL Urine Glucose (UA) Negative (Negative) mg/dL Imaging Additional studies: Date of Service: 12/29/24 CLINICAL HISTORY: pyelonerphitits, kidney stones, hazel rectal absces CT abdomen and pelvis with contrast Comparison: 02/21/2019 Findings: No consolidation or effusion. The gallbladder and solid organs are within normal limits. No renal stones. There is extensive fluid distention of small bowel. No focal bowel inflammation or evidence of bowel obstruction. There is thickening and nodularity of the bladder wall, predominating inferiorly and on the right. There is infiltration of fat adjacent to the urinary bladder, prostate gland and seminal vesicles and within the presacral space. Normal appendix. There is thrombus within the left common iliac vein and bilateral internal iliac veins. There is partial visualization of a mass or complex fluid collection involving the posterior inferior base of the penis on the left side and the adjacent perineum (series 2 images 88-95 ). Possible 2 cm fluid collection within the left obturator internus muscle. The bones are intact. IMPRESSION: 1. There is thrombus within the left common iliac vein and bilateral internal iliac veins. 2. Thickening and nodularity of the bladder wall may be secondary to infection or neoplasm. There is also infiltration of fat adjacent to the bladder, prostate gland, seminal vesicles and within the presacral space suggesting additional areas of involvement. 3. Partial visualization of a mass or complex fluid collection involving the posterior inferior base of the penis on the left side and the adjacent perineum. Possible fluid collection within the adjacent left obturator internus muscle. Assessment and Plan (1) Cystitis: Status: Acute (2) Abscess of buttock: Status: Acute Plan On clinical exam, no abnormalities of penis or significant scrotal swelling or edema Outpatient urology fu. No acute urological intervention indicated. Procedures Date of Service Date of Service: 12/30/24
[2024-12-30 18:01] LABS: PTT Heparin Drip 43.3 SEC (53-77.9)
[2024-12-30] MEDS: vancomycin HCL 750 MG in 0.9 % Sodium Chloride 250 ML 265 MG IV (21:17)
[2024-12-31] VITALS (12 sets, daily range): BP systolic 110–137; BP diastolic 58–97; PULSE 87–103; RESP 18–20; TEMP 36.4–38.7; O2SAT 96–99
[2024-12-31] MEDS: Lactated Ringers 1,000 ML 100 ML IVCONT ×3 (00:20→23:43)
[2024-12-31 01:15] LABS: PTT Heparin Drip 51.3 SEC (53-77.9)
[2024-12-31] MEDS: Heparin Sodium,Porcine 5,000 UNIT/ML VIAL 3500 UNIT IVPUSH ×2 (01:37→14:51)
[2024-12-31] MEDS: Piperacillin Sodium/Tazobactam 3.375 GM in 0.9 % Sodium Chloride 50 ML IV ×4 (01:43→22:09)
[2024-12-31] MEDS: Morphine Sulfate 4 MG/ML CARTRIDGE IVPUSH ×5 (01:57→21:59)
[2024-12-31] MEDS: Heparin Sodium,Porcine/1/2NS 25,000 UNIT/250 ML IV.SOLN 21 UNIT IVCONT ×2 (01:57→13:09)
[2024-12-31] MEDS: Acetaminophen 325 MG TABLET 650 MG PO ×3 (02:46→16:08)
[2024-12-31] MEDS: vancomycin HCL 750 MG in 0.9 % Sodium Chloride 250 ML 265 MG IV ×2 (03:10→11:26)
[2024-12-31] MEDS: 0.9 % Sodium Chloride Flush 3 ML SYRINGE IVFLUSH ×3 (07:39→20:30)
[2024-12-31 08:02] LABS: Hematocrit 30.9 % (42.0-52.0); Hemoglobin 10.3 g/dl (14.0-18.0); Mean Corpuscular HGB Conc 33.3 g/dl (31.0-36.0); Mean Corpuscular Hemoglobin 27.5 pg (27.0-33.0); Mean Corpuscular Volume 82.4 fL (80.0-98.0); Mean Platelet Volume 9.3 fL (9.4-12.4); Platelet Count 576 X10*3/uL (160-400); Red Blood Count 3.75 X10*6/uL (4.60-5.80)
[2024-12-31 08:11] LABS: PTT Heparin Drip 55.5 SEC (53-77.9)
[2024-12-31 08:24] LABS: Anion Gap 12 (12-20); Blood Urea Nitrogen 4 mg/dL (9-16); Calcium 8.3 mg/dL (8.4-10.2); Carbon Dioxide 22 mmol/L (22-29); Chloride 109 mmol/L (96-108); Creatinine Clr Calc Pharmacy 169.6; Estimated Glomerular Filt Rate > 60; Glucose Random 85 mg/dL (60-115); Potassium 3.6 mmol/L (3.3-5.1); Sodium 139 mmol/L (135-145)
--- NOTE | 2024-12-31 09:09 | P.PNIM_ITS ---
Subjective Subjective Date of Service: 12/31/24 Interval History: seen and examined this morning follow up for buttock abscess, sepsis, DVT had fever overnight still reporting buttock pain Review of Systems Review of Systems: Yes all other systems are reviewed and are negative Constitutional Constitutional: Reports fever(s) Cardiovascular Cardiovascular: Denies chest pain, Denies palpitations and Denies dyspnea Respiratory Respiratory: Denies cough and Denies dyspnea Gastrointestinal Gastrointestinal: Denies abdominal pain, Denies diarrhea, Denies nausea and Denies vomiting Endocrine Endocrine: Denies palpitations Physical Exam 2 Vital Signs: Vital Signs: Last Vital Signs Temp 98.9 F 12/31/24 07:15 Pulse 92 12/31/24 07:15 Resp 18 12/31/24 07:15 BP 123/80 12/31/24 07:15 Pulse Ox 96 12/31/24 07:15 O2 Del Method Room Air 12/31/24 07:15 BMI result Body Mass Index 28.9 Const: Other: ill appearing General: alert and awake Nutritional Appearance: average body habitus Orientation/consciousness: patient oriented x3 Resp: Effort & Inspection: normal respiratory effort, able to speak in complete sentences, no respiratory distress and no use of accessory muscles A uscultation: clear to auscultation bilaterally Cardio: Rate: regular rate GI: Inspection: No distended Palpation (GI): Soft to palpation and nontender Neuro: General: patient oriented x3, moves all extremities and CN's II-XI intact bilaterally Extrem: General: Yes no pedal edema Objective Data Active Medications Acetaminophen (Acetaminophen 325 Mg Tablet) 650 mg PO Q6H PRN PRN Reason: Pain, Mild 1-3,fever,headache Last Admin: 12/31/24 02:46 Dose: 650 mg Documented By: LISA Albuterol Sulfate (Albuterol Sulfate (0.083%) 2.5 Mg/3 Ml Vial.Neb) 2.5 mg INHALE Q8H PRN PRN Reason: shortness of breath or wheezing Albuterol Sulfate (Albuterol Sulfate 90 Mcg 8 Gm Inhaler) 1 puff INHALE Q4H PRN PRN Reason: for wheezing Benzonatate (Benzonatate 100 Mg Capsule) 100 mg PO TID PRN PRN Reason: Cough Calcium Carbonate (Calcium Carbonate 750 Mg Tab.Chew) 750 mg PO Q4H PRN PRN Reason: Heartburn Heparin Sodium (Porcine) (Heparin Sodium,Porcine 5,000 Unit/Ml Vial) 3,500 unit IVPUSH PROTOCOL BOLUS PRN; Protocol PRN Reason: 40 unit/kg - Heparin Protocol Last Admin: 12/31/24 01:37 Dose: 3,500 unit Documented By: LISA Heparin Sodium (Porcine) (Heparin Sodium,Porcine 5,000 Unit/Ml Vial) 7,000 unit IVPUSH PROTOCOL BOLUS PRN; Protocol PRN Reason: 80 unit/kg - Heparin Protocol Last Admin: 12/30/24 04:43 Dose: 7,000 unit Documented By: LETA Hydroxyzine HCl (Hydroxyzine Hcl 25 Mg Tablet) 25 mg PO BEDTIME PRN PRN Reason: Anxiety/Sleep Heparin Sodium/Sodium Chloride (Heparin Sodium,Porcine/1/2ns) 25,000 unit in 250 mls @ 0 mls/hr IVCONT .Q0M [facility]; Protocol Last Titration: 12/31/24 08:18 Dose: 24 units/kg/hr, 21 mls/hr Documented By: AGA Co-signed By: MELLY Piperacillin Sod/Tazobactam (Sod 3.375 gm/ Sodium Chloride) 50 mls @ 100 mls/hr IV Q6H [facility] Last Infusion: 12/31/24 08:21 Dose: Infused Documented By: AGA Vancomycin HCl 750 mg/ Sodium (Chloride) 265 mls @ 265 mls/hr IV Q8H [facility] Last Infusion: 12/31/24 04:12 Dose: Infused Documented By: LISA Lactated Ringer's (Lr) 1,000 mls @ 100 mls/hr IVCONT .Q10H [facility] Last Admin: 12/31/24 00:20 Dose: 100 mls/hr Documented By: LISA Magnesium Hydroxide (Milk Of Magnesia 30 Ml Oral.Susp) 30 ml PO DAILY PRN PRN Reason: Constipation Melatonin (Melatonin 3 Mg Tablet) 6 mg PO BEDTIME PRN PRN Reason: Insomnia Morphine Sulfate (Morphine Sulfate 4 Mg/Ml Cartridge) 4 mg IVPUSH Q4H PRN; Protocol PRN Reason: Pain, Severe (Pain Scale 7-10) Last Admin: 12/31/24 07:38 Dose: 4 mg Documented By: AGA Ondansetron HCl (Ondansetron Hcl 4 Mg/2 Ml Vial) 4 mg IVPUSH Q8H PRN PRN Reason: Nausea and Vomiting Pharmacy Consult (Consult Rx Vancomycin Dosing) 1 each MISCELLANE DAILY PRN PRN Reason: Consult order Sodium Chloride (0.9 % Sodium Chloride Flush 3 Ml Syringe) [facility] Last Admin: 12/31/24 07:39 Dose: 3 ml Documented By: AGA Labs 12/31/24 07:39 12/31/24 07:39 Labs: Laboratory Results - last 24 hr 12/30/24 12/30/24 12/31/24 10:40 17:50 00:56 MCV MCH MCHC RDW Plt Count MPV Absolute Nucleated RBC Nucleated RBC % (auto) Hold Purple Top SEE NOTE aPTT Heparin Protocol 48.3 L D 43.3 L 51.3 L Anion Gap Estim Creat Clear Calc Estimated GFR Random Glucose Calcium 12/31/24 12/31/24 07:38 07:39 MCV 82.4 MCH 27.5 MCHC 33.3 RDW 14.0 Plt Count 576 H MPV 9.3 L Absolute Nucleated RBC 0.000 Nucleated RBC % (auto) 0.0 Hold Purple Top aPTT Heparin Protocol 55.5 Anion Gap 12 Estim Creat Clear Calc 169.6 Estimated GFR > 60 Random Glucose 85 Calcium 8.3 L Microbiology Microbiology Results: Microbiology 12/29/24 16:50 Blood Culture - Preliminary Blood - Venous Prelim: GPC Gram Stain only 12/30/24 12:43 Gram Stain - Final Abscess Ischiorectal Routine Culture - Preliminary Culture in progress. 12/29/24 16:50 Blood Culture - Preliminary Blood - Venous No growth after 24 hours. 12/29/24 Unknown Urine Culture - Final Urine clean catch - Clean Catch Midstream No growth. Assessment and Plan (1) Abscess of buttock: Status: Acute (2) Sepsis: Status: Acute (3) Acute deep vein thrombosis (DVT) of iliac vein of both lower extremities: Status: Acute (4) Bacteremia: Status: Acute Plan This is a 29-year-old male with a PMH significant for asthma and autism who presents to the ED for evaluation of fever x4-5 days found to have multiple issues including acute thrombus of left common iliac vein and bilateral internal iliac veins and acute UTI with sepsis with concerns for genitourinary abscess vs neoplasm. sepsis due to buttock abscess, possible UTI and GPC bacteremia urine culture negative (was treated with doxycyline for 3d prior to admission) remained febrile overnight, wbc count trending down Continue IV Zosyn, and vancomycin started 12/29/2024 blood cultures 10/27 growing GPC will check surveillance blood cultures 01/01 buttock abscess repeat Pelvic CT with complex fluid collection at at base of penis with possible communication to more complex fluid collection in the left ischorectal fossa seen by General surgery -s/p I&D of left buttock - wound culture GPC - follow final results seen by urology, normal urological exam, no further intervention required. recommend outpatient follow up with urology continue vancomycin and zosyn Continue Elizalde follow blood cultures Acute iliac vein thrombus CT showing left common iliac vein and bilateral internal iliac vein thrombus Unclear etiology. pt does have family history of blood clots. concern for possible malignancy on initial CT, follow up pelvic CT bladder now well visualized b/l doppler US negative vascular surgery following, no surgical intervention planned at this time continue heparin drip for now may need outpatient follow up with hematology Hyperchloremic metabolic acidosis due to IVF improving, bicarb normalized chronic normocytic anemia H/H stable thrombocytosis likely reactive due to acute infection Mild intermittent asthma Not in acute exacerbation Continue home inhalers Autism/mood disorder Continue hydroxyzine Full Code DVT Prophylaxis:heparin drip requires ongoing inpatient hospitalization for treatment of?acute thrombus of left common iliac vein and bilateral internal iliac veins and acute UTI with sepsis with buttock abscess requiring IV antibiotics, heparin drip, and specialist evaluation Quality Stroke Does the patient have a stroke diagnosis?: No VTE Prior VTE?: No VTE Risk Level:: Medical - moderate - high VTE Device Contraindication: Treatment Not Indicated VTE Drug Contraindication: N/A - Med Ordered
[2024-12-31 11:08] LABS: Vancomycin Trough 11.8 mcg/mL (10.0-20.0)
--- NOTE | 2024-12-31 11:15 | PC.NURSE ---
Copy of updated MOLST in chart. Patient has original copy. SAUL Holm aware to change code status.
--- NOTE | 2024-12-31 11:40 | HE.PHANOTE ---
Vancomycin Vancomycin trough 11.9. Increasing dose to 1000 mg for predicted AUC of 478 , 750 mg q8 predicted to be subtherapeutic. Next level 01/01/25 @1000. creatinine stable
--- NOTE | 2024-12-31 12:43 | P.PNGS_ITS ---
Subjective Subjective Date of Service: 12/31/24 Interval history: Patient says he is not feeling well but quiet. Still pain in the buttock area. Physical Exam 2 Vital Signs: Vital Signs: Last Vital Signs Temp 98.9 F 12/31/24 11:12 Pulse 93 12/31/24 11:12 Resp 20 12/31/24 11:12 BP 118/67 12/31/24 11:12 Pulse Ox 96 12/31/24 11:12 O2 Del Method Room Air 12/31/24 11:12 BMI result Body Mass Index 28.9 Const: General: cooperative, comfortable and anxious Skin: Other: Site of incision and drainage of the perirectal abscess looks good. The surrounding tissue does not feel indurated worrisome erythema. Packing is in place Objective Data Active Medications Acetaminophen (Acetaminophen 325 Mg Tablet) 650 mg PO Q6H PRN PRN Reason: Pain, Mild 1-3,fever,headache Last Admin: 12/31/24 09:49 Dose: 650 mg Documented By: AGA Albuterol Sulfate (Albuterol Sulfate (0.083%) 2.5 Mg/3 Ml Vial.Neb) 2.5 mg INHALE Q8H PRN PRN Reason: shortness of breath or wheezing Albuterol Sulfate (Albuterol Sulfate 90 Mcg 8 Gm Inhaler) 1 puff INHALE Q4H PRN PRN Reason: for wheezing Benzonatate (Benzonatate 100 Mg Capsule) 100 mg PO TID PRN PRN Reason: Cough Calcium Carbonate (Calcium Carbonate 750 Mg Tab.Chew) 750 mg PO Q4H PRN PRN Reason: Heartburn Heparin Sodium (Porcine) (Heparin Sodium,Porcine 5,000 Unit/Ml Vial) 3,500 unit IVPUSH PROTOCOL BOLUS PRN; Protocol PRN Reason: 40 unit/kg - Heparin Protocol Last Admin: 12/31/24 01:37 Dose: 3,500 unit Documented By: LISA Heparin Sodium (Porcine) (Heparin Sodium,Porcine 5,000 Unit/Ml Vial) 7,000 unit IVPUSH PROTOCOL BOLUS PRN; Protocol PRN Reason: 80 unit/kg - Heparin Protocol Last Admin: 12/30/24 04:43 Dose: 7,000 unit Documented By: LETA Hydroxyzine HCl (Hydroxyzine Hcl 25 Mg Tablet) 25 mg PO BEDTIME PRN PRN Reason: Anxiety/Sleep Heparin Sodium/Sodium Chloride (Heparin Sodium,Porcine/1/2ns) 25,000 unit in 250 mls @ 0 mls/hr IVCONT .Q0M [facility]; Protocol Last Titration: 12/31/24 08:18 Dose: 24 units/kg/hr, 21 mls/hr Documented By: AGA Co-signed By: MELLY Piperacillin Sod/Tazobactam (Sod 3.375 gm/ Sodium Chloride) 50 mls @ 100 mls/hr IV Q6H [facility] Last Infusion: 12/31/24 08:21 Dose: Infused Documented By: AGA Vancomycin HCl 750 mg/ Sodium (Chloride) 265 mls @ 265 mls/hr IV Q8H [facility] Stop: 12/31/24 13:00 Last Admin: 12/31/24 11:26 Dose: 265 mls/hr Documented By: AGA Lactated Ringer's (Lr) 1,000 mls @ 100 mls/hr IVCONT .Q10H [facility] Last Admin: 12/31/24 11:26 Dose: 100 mls/hr Documented By: AGA Vancomycin HCl 1,000 mg/ (Sodium Chloride) 270 mls @ 270 mls/hr IV Q8H [facility] Magnesium Hydroxide (Milk Of Magnesia 30 Ml Oral.Susp) 30 ml PO DAILY PRN PRN Reason: Constipation Melatonin (Melatonin 3 Mg Tablet) 6 mg PO BEDTIME PRN PRN Reason: Insomnia Morphine Sulfate (Morphine Sulfate 4 Mg/Ml Cartridge) 4 mg IVPUSH Q4H PRN; Protocol PRN Reason: Pain, Severe (Pain Scale 7-10) Last Admin: 12/31/24 07:38 Dose: 4 mg Documented By: AGA Ondansetron HCl (Ondansetron Hcl 4 Mg/2 Ml Vial) 4 mg IVPUSH Q8H PRN PRN Reason: Nausea and Vomiting Pharmacy Consult (Consult Rx Vancomycin Dosing) 1 each MISCELLANE DAILY PRN PRN Reason: Consult order Sodium Chloride (0.9 % Sodium Chloride Flush 3 Ml Syringe) 3 ml IVFLUSH QSHIFT [facility] Last Admin: 12/31/24 07:39 Dose: 3 ml Documented By: AGA Labs 12/31/24 07:39 12/31/24 07:39 Labs: Laboratory Results - last 24 hr 12/30/24 12/31/24 12/31/24 17:50 00:56 07:38 MCV MCH MCHC RDW Plt Count MPV Absolute Nucleated RBC Nucleated RBC % (auto) Hold Purple Top SEE NOTE aPTT Heparin Protocol 43.3 L 51.3 L 55.5 Anion Gap Estim Creat Clear Calc Estimated GFR Random Glucose Calcium Vancomycin Trough 12/31/24 12/31/24 07:39 09:58 MCV 82.4 MCH 27.5 MCHC 33.3 RDW 14.0 Plt Count 576 H MPV 9.3 L Absolute Nucleated RBC 0.000 Nucleated RBC % (auto) 0.0 Hold Purple Top aPTT Heparin Protocol Anion Gap 12 Estim Creat Clear Calc 169.6 Estimated GFR > 60 Random Glucose 85 Calcium 8.3 L Vancomycin Trough 11.8 Microbiology Microbiology Results: Microbiology 12/29/24 16:50 Blood Culture - Preliminary Blood - Venous Prelim: GPC Gram Stain only 12/30/24 12:43 Gram Stain - Final Abscess Ischiorectal Routine Culture - Preliminary Culture in progress. 12/29/24 16:50 Blood Culture - Preliminary Blood - Venous No growth after 24 hours. 12/29/24 Unknown Urine Culture - Final Urine clean catch - Clean Catch Midstream No growth. Procedures Date of Service Date of Service: 12/31/24 Progress Note: A&P Assessment and plan (1) Abscess of buttock: Status: Acute Assessment and Plan: Patient is status post incision and drainage of buttock abscess and improving. Plan to continue dressing in place changes needed continue with IV antibiotics. Tomorrow hopefully we will be able to pull out and if discharging home can do some soaks and just cover the area with gauze. Plan to follow up on culture results but continue with broad-spectrum antibiotics. White count is down to 13 from 15 Medical team to manage other issues. Time Spent With Patient Time: Total time managing care of this patient today ____ minutes. Quality Stroke Does the patient have a stroke diagnosis?: No VTE Prior VTE?: No VTE Risk Level:: Medical - moderate - high VTE Device Contraindication: Treatment Not Indicated VTE Drug Contraindication: N/A - Med Ordered
[2024-12-31 13:33] LABS: PTT Heparin Drip 51.5 SEC (53-77.9)
[2024-12-31] MEDS: Ketorolac Tromethamine 30 MG/ML VIAL IVPUSH (20:27)
[2024-12-31] MEDS: vancomycin HCL 1,000 MG in 0.9 % Sodium Chloride 250 ML 270 MG IV (20:32)
[2024-12-31 21:22] LABS: PTT Heparin Drip 61.4 SEC (53-77.9)
[2024-12-31] MEDS: Heparin Sodium,Porcine/1/2NS 25,000 UNIT/250 ML IV.SOLN 22.75 UNIT IVCONT (23:43)
[2025-01-01] VITALS (12 sets, daily range): BP systolic 101–125; BP diastolic 54–84; PULSE 80–103; RESP 16–20; TEMP 36.6–38.6; O2SAT 95–99
[2025-01-01] MEDS: Acetaminophen 325 MG TABLET 650 MG PO ×4 (01:51→21:15)
[2025-01-01] MEDS: Morphine Sulfate 4 MG/ML CARTRIDGE IVPUSH (01:59)
[2025-01-01 03:27] LABS: Hematocrit 28.4 % (42.0-52.0); Hemoglobin 9.5 g/dl (14.0-18.0); Mean Corpuscular HGB Conc 33.5 g/dl (31.0-36.0); Mean Corpuscular Hemoglobin 27.3 pg (27.0-33.0); Mean Corpuscular Volume 81.6 fL (80.0-98.0); Mean Platelet Volume 8.9 fL (9.4-12.4); Platelet Count 496 X10*3/uL (160-400); Red Blood Count 3.48 X10*6/uL (4.60-5.80); Red Cell Distribution Width 13.7 % (11.0-16.0); White Blood Count 9.8 X10*3/uL (4.8-10.8)
[2025-01-01 03:41] LABS: PTT Heparin Drip 54.3 SEC (53-77.9)
[2025-01-01] MEDS: vancomycin HCL 1,000 MG in 0.9 % Sodium Chloride 250 ML 270 MG IV (03:44)
[2025-01-01 03:45] LABS: Anion Gap 12 (12-20); Blood Urea Nitrogen 4 mg/dL (9-16); Calcium 8.2 mg/dL (8.4-10.2); Carbon Dioxide 23 mmol/L (22-29); Chloride 109 mmol/L (96-108); Creatinine Clr Calc Pharmacy 162.5; Estimated Glomerular Filt Rate > 60; Glucose Random 99 mg/dL (60-115); Potassium 3.6 mmol/L (3.3-5.1); Sodium 140 mmol/L (135-145)
[2025-01-01] MEDS: Piperacillin Sodium/Tazobactam 3.375 GM in 0.9 % Sodium Chloride 50 ML IV ×4 (04:45→20:55)
--- NOTE | 2025-01-01 08:07 | PC.NURSE ---
Pt. voiding large amts. in urinal overnight without c/o dysurea /pain. U/O >1999, see I/O's. Pt. febrile overnight, received Toradol IV x1 dose per Dr. Salinas and as needed tylenol at 0151. IVF infusing. At 05:45 pt states he wants the IVF turned off. Pt. states he cannot urinate and feels like he has to; c/o lower abdomen pain. Pt. voided 1000cc approx. 1 hr. prior. Pt. bladder scanned at 0600 for 850ml. Pt. adamently refusing to be straight catheterized and wanting to try to void in bathroom. Reported these findings, see MD notification at 0633, per Dr. Salinas, give him time to void. Dr. Salinas notified IVF paused at 0620.
[2025-01-01] MEDS: oxyCODONE HCl Immed Release 5 MG TABLET PO ×2 (08:59→15:09)
[2025-01-01] MEDS: 0.9 % Sodium Chloride Flush 3 ML SYRINGE IVFLUSH ×3 (08:59→21:16)
--- NOTE | 2025-01-01 10:36 | P.PNIM_ITS ---
Subjective Subjective Date of Service: 01/01/25 Interval History: seen and examined this morning follow up for buttock abscess, sepsis, left common iliac vein and b/l internal iliac vein thrombus pt reporting buttock pain at site of I&D, reports difficulty urinating not pain but feeling like he has to force urine out and not fully emptying- currently refusing straight cath or weathers cath persistent fever Review of Systems Review of Systems: Yes all other systems are reviewed and are negative Constitutional Constitutional: Denies chills and Denies fever(s) Cardiovascular Cardiovascular: Denies chest pain and Denies palpitations Endocrine Endocrine: Denies palpitations Physical Exam 2 Vital Signs: Vital Signs: Last Vital Signs Temp 99.9 F 01/01/25 07:46 Pulse 88 01/01/25 07:46 Resp 18 01/01/25 07:46 BP 125/84 01/01/25 07:46 Pulse Ox 98 01/01/25 07:46 O2 Del Method Room Air 01/01/25 07:46 BMI result Body Mass Index 28.9 Const: Other: ill appearing General: alert and awake Nutritional Appearance: average body habitus Orientation/consciousness: patient oriented x3 Resp: Effort & Inspection: normal respiratory effort, able to speak in complete sentences, no respiratory distress and no use of accessory muscles A uscultation: clear to auscultation bilaterally Cardio: Rate: regular rate GI: Inspection: No distended Palpation (GI): Soft to palpation and nontender Neuro: General: patient oriented x3, moves all extremities and CN's II-XI intact bilaterally Extrem: General: Yes no pedal edema Objective Data Active Medications Acetaminophen (Acetaminophen 325 Mg Tablet) 650 mg PO Q6H PRN PRN Reason: Pain, Mild 1-3,fever,headache Last Admin: 01/01/25 08:59 Dose: 650 mg Documented By: AGA Albuterol Sulfate (Albuterol Sulfate (0.083%) 2.5 Mg/3 Ml Vial.Neb) 2.5 mg INHALE Q8H PRN PRN Reason: shortness of breath or wheezing Albuterol Sulfate (Albuterol Sulfate 90 Mcg 8 Gm Inhaler) 1 puff INHALE Q4H PRN PRN Reason: for wheezing Benzonatate (Benzonatate 100 Mg Capsule) 100 mg PO TID PRN PRN Reason: Cough Calcium Carbonate (Calcium Carbonate 750 Mg Tab.Chew) 750 mg PO Q4H PRN PRN Reason: Heartburn Heparin Sodium (Porcine) (Heparin Sodium,Porcine 5,000 Unit/Ml Vial) 3,500 unit IVPUSH PROTOCOL BOLUS PRN; Protocol PRN Reason: 40 unit/kg - Heparin Protocol Last Admin: 12/31/24 14:51 Dose: 3,500 unit Documented By: AGA Heparin Sodium (Porcine) (Heparin Sodium,Porcine 5,000 Unit/Ml Vial) 7,000 unit IVPUSH PROTOCOL BOLUS PRN; Protocol PRN Reason: 80 unit/kg - Heparin Protocol Last Admin: 12/30/24 04:43 Dose: 7,000 unit Documented By: LETA Hydroxyzine HCl (Hydroxyzine Hcl 25 Mg Tablet) 25 mg PO BEDTIME PRN PRN Reason: Anxiety/Sleep Heparin Sodium/Sodium Chloride (Heparin Sodium,Porcine/1/2ns) 25,000 unit in 250 mls @ 0 mls/hr IVCONT .Q0M [facility]; Protocol Last Titration: 01/01/25 03:20 Dose: 26 units/kg/hr, 22.75 mls/hr Documented By: SACHIN Co-signed By: LISA Piperacillin Sod/Tazobactam (Sod 3.375 gm/ Sodium Chloride) 50 mls @ 100 mls/hr IV Q6H [facility] Last Infusion: 01/01/25 10:09 Dose: Infused Documented By: AGA Vancomycin HCl 1,000 mg/ (Sodium Chloride) 270 mls @ 270 mls/hr IV Q8H [facility] Last Infusion: 01/01/25 04:44 Dose: Infused Documented By: SACHIN Magnesium Hydroxide (Milk Of Magnesia 30 Ml Oral.Susp) 30 ml PO DAILY PRN PRN Reason: Constipation Melatonin (Melatonin 3 Mg Tablet) 6 mg PO BEDTIME PRN PRN Reason: Insomnia Morphine Sulfate (Morphine Sulfate 4 Mg/Ml Cartridge) 4 mg IVPUSH Q4H PRN; Protocol PRN Reason: Pain, Severe (Pain Scale 7-10) Last Admin: 01/01/25 01:59 Dose: 4 mg Documented By: SACHIN Ondansetron HCl (Ondansetron Hcl 4 Mg/2 Ml Vial) 4 mg IVPUSH Q8H PRN PRN Reason: Nausea and Vomiting Oxycodone HCl (Oxycodone Hcl Immed Release 5 Mg Tablet) 5 mg PO Q6H PRN PRN Reason: Pain, Moderate(Pain Scale 4-6) Last Admin: 01/01/25 08:59 Dose: 5 mg Documented By: AGA Pharmacy Consult (Consult Rx Vancomycin Dosing) 1 each MISCELLANE DAILY PRN PRN Reason: Consult order Sodium Chloride (0.9 % Sodium Chloride Flush 3 Ml Syringe) 3 ml IVFLUSH QSHIFT [facility] Last Admin: 01/01/25 08:59 Dose: 3 ml Documented By: AGA Labs 01/01/25 03:20 01/01/25 03:20 Labs: Laboratory Results - last 24 hr 12/31/24 12/31/24 12/31/24 09:58 13:17 20:59 MCV MCH MCHC RDW Plt Count MPV Absolute Nucleated RBC Nucleated RBC % (auto) Hold Purple Top SEE NOTE aPTT Heparin Protocol 51.5 L 61.4 Anion Gap Estim Creat Clear Calc Estimated GFR Random Glucose Calcium Vancomycin Trough 11.8 01/01/25 03:20 MCV 81.6 MCH 27.3 MCHC 33.5 RDW 13.7 Plt Count 496 H MPV 8.9 L Absolute Nucleated RBC 0.000 Nucleated RBC % (auto) 0.0 Hold Purple Top aPTT Heparin Protocol 54.3 Anion Gap 12 Estim Creat Clear Calc 162.5 Estimated GFR > 60 Random Glucose 99 Calcium 8.2 L Vancomycin Trough Microbiology Microbiology Results: Microbiology 12/29/24 16:50 Blood Culture - Final Blood - Venous Streptococcus viridans group 12/29/24 16:50 Blood Culture - Preliminary Blood - Venous No growth after 48 hours. 12/30/24 12:43 Gram Stain - Final Abscess Ischiorectal Routine Culture - Preliminary Culture in progress. Assessment and Plan (1) Bacteremia: Status: Acute (2) Abscess of buttock: Status: Acute (3) Sepsis: Status: Acute (4) Acute deep vein thrombosis (DVT) of iliac vein of both lower extremities: Status: Acute Plan This is a 29-year-old male with a PMH significant for asthma and autism who presents to the ED for evaluation of fever x4-5 days found to have multiple issues including acute thrombus of left common iliac vein and bilateral internal iliac veins and acute UTI with sepsis with concerns for genitourinary abscess vs neoplasm. sepsis due to buttock abscess, possible UTI and GPC bacteremia urine culture negative (was treated with doxycyline for 3d prior to admission) remained febrile overnight, leukocytosis resolved blood cultures growing 1/2 strep viridans group ?contamination Surveillance blood cultures pending Continue IV Zosyn, and vancomycin started 12/29/2024 buttock abscess repeat Pelvic CT with complex fluid collection at at base of penis with possible communication to more complex fluid collection in the left ischorectal fossa seen by General surgery -s/p I&D of left buttock - wound culture GPC - follow final results seen by urology, normal urological exam, no further intervention required. recommend outpatient follow up with urology continue vancomycin and zosyn Continue to recommend Weathers, pt declines follow blood cultures due to persistent fever, will discuss with surgery about repeat imaging Acute iliac vein thrombus CT showing left common iliac vein and bilateral internal iliac vein thrombus Unclear etiology. pt does have family history of blood clots. concern for possible malignancy on initial CT, follow up pelvic CT bladder now well visualized b/l doppler US negative vascular surgery following, no surgical intervention planned at this time continue heparin drip for now may need outpatient follow up with hematology Hyperchloremic metabolic acidosis due to IVF improving, bicarb normalized chronic normocytic anemia H/H stable thrombocytosis likely reactive due to acute infection Mild intermittent asthma Not in acute exacerbation Continue home inhalers Autism/mood disorder Continue hydroxyzine Full Code DVT Prophylaxis:heparin drip requires ongoing inpatient hospitalization for treatment of?acute thrombus of left common iliac vein and bilateral internal iliac veins and acute UTI with sepsis with buttock abscess requiring IV antibiotics, heparin drip, and specialist evaluation Quality Stroke Does the patient have a stroke diagnosis?: No VTE Prior VTE?: No VTE Risk Level:: Medical - moderate - high VTE Device Contraindication: Treatment Not Indicated VTE Drug Contraindication: N/A - Med Ordered
[2025-01-01 10:42] LABS: Vancomycin Trough 16.7 mcg/mL (10.0-20.0)
--- NOTE | 2025-01-01 10:54 | HE.PHANOTE ---
RE: VANCO DOSING Trough came back as 16.7 mg/L which is supratherapeutic for indication of skin infection. Dose is decreased to 1250 mg q12h, next trough is scheduled for 01/02/25 @1400.
[2025-01-01] MEDS: Heparin Sodium,Porcine/1/2NS 25,000 UNIT/250 ML IV.SOLN 22.75 UNIT IVCONT (11:03)
[2025-01-01] MEDS: vancomycin HCL 1,250 MG in 0.9 % Sodium Chloride 250 ML 166.67 MG IV (15:06)
--- NOTE | 2025-01-01 18:00 | PC.NURSE ---
Heparin gtt paused at this time 1800 per verbal order MD Amie for procedure tonight.
[2025-01-01] MEDS: Albuterol Sulfate (0.083%) 2.5 MG/3 ML VIAL.NEB INHALE (18:25)
--- NOTE | 2025-01-01 18:33 | PC.NURSE ---
Patient transferred off floor via bed to OR at this time via [facility].
--- NOTE | 2025-01-01 19:00 | PM.EVENT ---
Event Note Date of Service: 01/01/25 Event Note: pt still spiking temps and concern there is still tenderness and firness in perirectal area ct scan showing significant inflammation same as pre-drainage at bedside discussed case with vascular dr hathaway and risks of PE relatively low still so will hold heparin for 60 min and do repeat ID in OR and resume heparin after. risks and benefits discussed with pt who understands adn agrees with the plan Time Spent With Patient Time: Total time managing care of this patient today ____ minutes.
--- NOTE | 2025-01-01 19:52 | W.PM.OPN ---
Operative Note Operative Note Date of Service: 01/01/25 Narrative: PREOP DIAGNOSIS--left ischiorectal abscess Postop diagnosis--same Procedure--drainage of left ischiorectal abscess Surgeon--Amie Anesthesia--MARQUISE Patient is a 29-year-old male comes in with ischiorectal abscess drained 2 days ago at bedside with good amount of purulent material draining out. Packing removed today but patient is still having firmness spiking temperatures and having urinary retention. As a result plan is to come to the OR for better drainage here. Discussed with vascular as patient has iliac vein thrombosis in his therapeutically anticoagulated with heparin drip and we will agree to hold the drip shortly well we do the procedure and then resume. Findings--moderate amount of pus still present but drained and irrigated Procedure-- Patient was brought to the operative room under Anesthesia guidance was intubated. He was placed in stirrups. The perineal perirectal area was prepped and draped in standard surgical fashion. The previous open area was numbed up with lidocaine with epinephrine and then cautery was used to open up the skin incision and the snap was probed into the space. A moderate amount of thick purulent material was drained. Then with finger probing a large pocket was entered into going superiorly and deep around the ischial rectal space. Suctioned probe was put in place and this pus was suctioned out. Saline irrigation was carried out until only clear fluid was suctioned out. The Surgicel was put in place and a surgical sponge inserted and held for few minutes to get hemostasis. The sponge in the Surgicel were then removed and just quarter-inch packing gauze iodoform strip was placed into this cavity. Dry dressings secured. At the end good hemostasis was achieved. Culture was sent off no other specimens sent. Patient was extubated returned stable to recovery room
[2025-01-01] MEDS: Docusate Sodium 100 MG CAPSULE PO (21:15)
[2025-01-01] MEDS: oxyCODONE HCl Immed Release 5 MG TABLET 10 MG PO (21:15)
[2025-01-02] MEDS: Heparin Sodium,Porcine/1/2NS 25,000 UNIT/250 ML IV.SOLN 22.75 UNIT IVCONT ×2 (00:55→11:31)
[2025-01-02] MEDS: Piperacillin Sodium/Tazobactam 3.375 GM in 0.9 % Sodium Chloride 50 ML IV ×4 (03:17→20:24)
[2025-01-02] MEDS: oxyCODONE HCl Immed Release 5 MG TABLET 10 MG PO ×4 (03:20→20:28)
[2025-01-02] MEDS: vancomycin HCL 1,250 MG in 0.9 % Sodium Chloride 250 ML 166.7 MG IV (04:45)
[2025-01-02 06:16] LABS: PTT Heparin Drip 67.2 SEC (53-77.9)
[2025-01-02 06:18] LABS: Creatinine Clr Calc Pharmacy 160.2; Estimated Glomerular Filt Rate > 60
[2025-01-02 07:32] VITALS: BP 119/70; PULSE 81; RESP 20; TEMP 37.3; O2SAT 96
--- NOTE | 2025-01-02 07:58 | HO.POSTANES ---
Post Anesthesia Evaluation Post Anesthesia Evaluation Date of Service: 01/02/25 Vital Signs: Vital Signs Temp Pulse Resp BP Pulse Ox O2 Del Method O2 Flow Rate 01/02/25 07:32 99.1 F 81 20 119/70 96 Room Air 01/01/25 23:24 97.8 F 80 18 116/70 97 Room Air 01/01/25 22:15 98.2 F 01/01/25 20:10 99.9 F 99 18 125/78 99 Nasal Cannula with ETCO2 2 01/01/25 20:05 99 18 125/78 99 Nasal Cannula with ETCO2 2 01/01/25 20:00 91 18 101/54 L 98 Nasal Cannula with ETCO2 2 Anesthesia: General LMA Mental Status: Awake Pain Control: Satisfactory Nausea/Vomiting: None Hydration: Adequate Anesthesia-Related Issues: No Anes. Related Issues
[2025-01-02] MEDS: Docusate Sodium 100 MG CAPSULE PO ×2 (08:17→20:27)
--- NOTE | 2025-01-02 08:45 | P.PNGS_ITS ---
Subjective Subjective Date of Service: 01/02/25 Interval history: Patient not very talkative, reports some incisional pain. Denies fever or chills Physical Exam 2 Vital Signs: Vital Signs: Last Vital Signs Temp 99.1 F 01/02/25 07:32 Pulse 81 01/02/25 07:32 Resp 20 01/02/25 07:32 BP 119/70 01/02/25 07:32 Pulse Ox 96 01/02/25 07:32 O2 Del Method Room Air 01/02/25 07:32 O2 Flow Rate 2 01/01/25 20:10 BMI result Body Mass Index 28.9 Const: General: no acute distress Nutritional Appearance: well nourished Orientation/consciousness: patient oriented x3 Resp: Effort & Inspection: normal respiratory effort Back/Spine/Pelvis: Other: Dressings to incision in perirectal location changed. Wick remains intact with mostly serous discharge noted. Sterile dressings applied. Neuro: General: patient oriented x3 Extrem: Other: No edema or erythema Objective Data Active Medications Acetaminophen (Acetaminophen 325 Mg Tablet) 650 mg PO Q6H PRN PRN Reason: Pain, Mild 1-3,fever,headache Last Admin: 01/01/25 21:15 Dose: 650 mg Documented By: DELBERT Albuterol Sulfate (Albuterol Sulfate (0.083%) 2.5 Mg/3 Ml Vial.Neb) 2.5 mg INHALE Q8H PRN PRN Reason: shortness of breath or wheezing Last Admin: 01/01/25 18:25 Dose: 2.5 mg Documented By: AGA Albuterol Sulfate (Albuterol Sulfate 90 Mcg 8 Gm Inhaler) 1 puff INHALE Q4H PRN PRN Reason: for wheezing Benzonatate (Benzonatate 100 Mg Capsule) 100 mg PO TID PRN PRN Reason: Cough Calcium Carbonate (Calcium Carbonate 750 Mg Tab.Chew) 750 mg PO Q4H PRN PRN Reason: Heartburn Docusate Sodium (Docusate Sodium 100 Mg Capsule) 100 mg PO BID PAMELA Last Admin: 01/02/25 08:17 Dose: 100 mg Documented By: JESSICAARFred Heparin Sodium (Porcine) (Heparin Sodium,Porcine 5,000 Unit/Ml Vial) 3,500 unit IVPUSH PROTOCOL BOLUS PRN; Protocol PRN Reason: 40 unit/kg - Heparin Protocol Last Admin: 12/31/24 14:51 Dose: 3,500 unit Documented By: AGA Heparin Sodium (Porcine) (Heparin Sodium,Porcine 5,000 Unit/Ml Vial) 7,000 unit IVPUSH PROTOCOL BOLUS PRN; Protocol PRN Reason: 80 unit/kg - Heparin Protocol Last Admin: 12/30/24 04:43 Dose: 7,000 unit Documented By: LETA Hydroxyzine HCl (Hydroxyzine Hcl 25 Mg Tablet) 25 mg PO BEDTIME PRN PRN Reason: Anxiety/Sleep Heparin Sodium/Sodium Chloride (Heparin Sodium,Porcine/1/2ns) 25,000 unit in 250 mls @ 0 mls/hr IVCONT .Q0M PAMELA; Protocol Last Titration: 01/02/25 07:41 Dose: 26 units/kg/hr, 22.75 mls/hr Documented By: MELLY Co-signed By: DELBERT Piperacillin Sod/Tazobactam (Sod 3.375 gm/ Sodium Chloride) 50 mls @ 100 mls/hr IV Q6H [facility] Last Admin: 01/02/25 08:17 Dose: 100 mls/hr Documented By: MELLY Vancomycin HCl 1,250 mg/ (Sodium Chloride) 250 mls @ 166.667 mls/hr IV Q12H [facility] Last Infusion: 01/02/25 06:44 Dose: Infused Documented By: DELBERT Magnesium Hydroxide (Milk Of Magnesia 30 Ml Oral.Susp) 30 ml PO DAILY PRN PRN Reason: Constipation Melatonin (Melatonin 3 Mg Tablet) 6 mg PO BEDTIME PRN PRN Reason: Insomnia Morphine Sulfate (Morphine Sulfate 4 Mg/Ml Cartridge) 4 mg IVPUSH Q4H PRN; Protocol PRN Reason: Pain, Severe (Pain Scale 7-10) Last Admin: 01/01/25 01:59 Dose: 4 mg Documented By: SACHIN Ondansetron HCl (Ondansetron Hcl 4 Mg/2 Ml Vial) 4 mg IVPUSH Q8H PRN PRN Reason: Nausea and Vomiting Oxycodone HCl (Oxycodone Hcl Immed Release 5 Mg Tablet) 10 mg PO Q4H PRN PRN Reason: Pain, Moderate(Pain Scale 4-6) Last Admin: 01/02/25 08:21 Dose: 10 mg Documented By: MELLY Pharmacy Consult (Consult Rx Vancomycin Dosing) 1 each MISCELLANE DAILY PRN PRN Reason: Consult order Sodium Chloride (0.9 % Sodium Chloride Flush 3 Ml Syringe) 3 ml IVFLUSH QSHIFT [facility] Last Admin: 01/02/25 08:23 Dose: Not Given Documented By: MELLY Non-Admin Reason: IV Running Labs 01/01/25 03:20 01/02/25 05:54 Labs: Laboratory Results - last 24 hr 01/01/25 01/02/25 10:10 05:54 Hold Purple Top SEE NOTE aPTT Heparin Protocol 67.2 D Estim Creat Clear Calc 160.2 Estimated GFR > 60 Vancomycin Trough 16.7 Microbiology Microbiology Results: Microbiology 01/01/25 19:27 Gram Stain - Final Abscess Ischiorectal 12/30/24 12:43 Gram Stain - Final Abscess Ischiorectal Routine Culture - Final Streptococcus viridans group 12/29/24 16:50 Blood Culture - Final Blood - Venous Streptococcus viridans group Procedures Date of Service Date of Service: 01/02/25 Progress Note: A&P Assessment and plan (1) Abscess of buttock: Status: Acute (2) Bacteremia: Status: Acute Plan Initial wound cultures revealed strep viridans. Patient is on Zosyn and vancomycin. Temp 99.1 degrees. Wounds are clean and draining mainly serous fluid. WBC normal. We will continue abscess cavity and gradually remove wick. Monitor H&H while on heparin drip. Time Spent With Patient Time: Total time managing care of this patient today ____ minutes. Quality Stroke Does the patient have a stroke diagnosis?: No VTE Prior VTE?: No VTE Risk Level:: Medical - moderate - high VTE Device Contraindication: Treatment Not Indicated VTE Drug Contraindication: N/A - Med Ordered
[2025-01-02 11:14] VITALS: BP 118/72; PULSE 81; RESP 20; TEMP 37.2; O2SAT 96
--- NOTE | 2025-01-02 11:40 | HO.PM.IMPN ---
Subjective Subjective Date of Service: 01/02/25 Interval History: seen and examined this morning follow up for buttock abscess, sepsis, left common iliac vein and b/l internal iliac vein thrombus pt reporting buttock pain at site of I&D, reports difficulty urinating not pain but feeling like he has to force urine out and not fully emptying- currently refusing straight cath or weathers cath persistent fever Review of Systems Review of Systems: Yes all other systems are reviewed and are negative Constitutional Constitutional: Denies chills and Denies fever(s) Cardiovascular Cardiovascular: Denies chest pain and Denies palpitations Endocrine Endocrine: Denies palpitations Physical Exam Vital Signs: Vital Signs: Last Vital Signs Temp 99.0 F 01/02/25 11:14 Pulse 81 01/02/25 11:14 Resp 20 01/02/25 11:14 BP 118/72 01/02/25 11:14 Pulse Ox 96 01/02/25 11:14 O2 Del Method Room Air 01/02/25 11:14 O2 Flow Rate 2 01/01/25 20:10 BMI result Body Mass Index 28.9 Appearing in no acute distress lung sounds are clear to auscultation heart regular rate rhythm, clear S1, S2 positive bowel sounds, abdomen is soft, nontender neuro patient is alert x3, no focal deficits Objective Data Active Medications Acetaminophen (Acetaminophen 325 Mg Tablet) 650 mg PO Q6H PRN PRN Reason: Pain, Mild 1-3,fever,headache Last Admin: 01/01/25 21:15 Dose: 650 mg Documented By: DELBERT Albuterol Sulfate (Albuterol Sulfate (0.083%) 2.5 Mg/3 Ml Vial.Neb) 2.5 mg INHALE Q8H PRN PRN Reason: shortness of breath or wheezing Last Admin: 01/01/25 18:25 Dose: 2.5 mg Documented By: AGA Albuterol Sulfate (Albuterol Sulfate 90 Mcg 8 Gm Inhaler) 1 puff INHALE Q4H PRN PRN Reason: for wheezing Benzonatate (Benzonatate 100 Mg Capsule) 100 mg PO TID PRN PRN Reason: Cough Calcium Carbonate (Calcium Carbonate 750 Mg Tab.Chew) 750 mg PO Q4H PRN PRN Reason: Heartburn Docusate Sodium (Docusate Sodium 100 Mg Capsule) 100 mg PO BID [facility] Last Admin: 01/02/25 08:17 Dose: 100 mg Documented By: MELLY Heparin Sodium (Porcine) (Heparin Sodium,Porcine 5,000 Unit/Ml Vial) 3,500 unit IVPUSH PROTOCOL BOLUS PRN; Protocol PRN Reason: 40 unit/kg - Heparin Protocol Last Admin: 12/31/24 14:51 Dose: 3,500 unit Documented By: VERONICA-RIVLA Heparin Sodium (Porcine) (Heparin Sodium,Porcine 5,000 Unit/Ml Vial) 7,000 unit IVPUSH PROTOCOL BOLUS PRN; Protocol PRN Reason: 80 unit/kg - Heparin Protocol Last Admin: 12/30/24 04:43 Dose: 7,000 unit Documented By: LETA Hydroxyzine HCl (Hydroxyzine Hcl 25 Mg Tablet) 25 mg PO BEDTIME PRN PRN Reason: Anxiety/Sleep Heparin Sodium/Sodium Chloride (Heparin Sodium,Porcine/1/2ns) 25,000 unit in 250 mls @ 0 mls/hr IVCONT .Q0M [facility]; Protocol Last Admin: 01/02/25 11:31 Dose: 26 units/kg/hr, 22.75 mls/hr Documented By: MELLY Co-signed By: DENA Piperacillin Sod/Tazobactam (Sod 3.375 gm/ Sodium Chloride) 50 mls @ 100 mls/hr IV Q6H [facility] Last Infusion: 01/02/25 09:05 Dose: Infused Documented By: MELLY Vancomycin HCl 1,250 mg/ (Sodium Chloride) 250 mls @ 166.667 mls/hr IV Q12H [facility] Last Infusion: 01/02/25 06:44 Dose: Infused Documented By: DELBERT Magnesium Hydroxide (Milk Of Magnesia 30 Ml Oral.Susp) 30 ml PO DAILY PRN PRN Reason: Constipation Melatonin (Melatonin 3 Mg Tablet) 6 mg PO BEDTIME PRN PRN Reason: Insomnia Morphine Sulfate (Morphine Sulfate 4 Mg/Ml Cartridge) 4 mg IVPUSH Q4H PRN; Protocol PRN Reason: Pain, Severe (Pain Scale 7-10) Last Admin: 01/01/25 01:59 Dose: 4 mg Documented By: SACHIN Ondansetron HCl (Ondansetron Hcl 4 Mg/2 Ml Vial) 4 mg IVPUSH Q8H PRN PRN Reason: Nausea and Vomiting Oxycodone HCl (Oxycodone Hcl Immed Release 5 Mg Tablet) 10 mg PO Q4H PRN PRN Reason: Pain, Moderate(Pain Scale 4-6) Last Admin: 01/02/25 08:21 Dose: 10 mg Documented By: MELLY Pharmacy Consult (Consult Rx Vancomycin Dosing) 1 each MISCELLANE DAILY PRN PRN Reason: Consult order Sodium Chloride (0.9 % Sodium Chloride Flush 3 Ml Syringe) 3 ml IVFLUSH QSHIFT [facility] Last Admin: 01/02/25 08:23 Dose: Not Given Documented By: MELLY Non-Admin Reason: IV Running Labs 01/01/25 03:20 01/02/25 05:54 Labs: Laboratory Results - last 24 hr 01/02/25 05:54 Hold Purple Top SEE NOTE aPTT Heparin Protocol 67.2 D Estim Creat Clear Calc 160.2 Estimated GFR > 60 Microbiology Microbiology Results: Microbiology 01/01/25 19:27 Gram Stain - Final Abscess Ischiorectal Routine Culture - Preliminary No growth to date. 12/30/24 12:43 Gram Stain - Final Abscess Ischiorectal Routine Culture - Final Streptococcus viridans group 12/29/24 16:50 Blood Culture - Final Blood - Venous Streptococcus viridans group Assessment and Plan (1) Bacteremia: Status: Acute (2) Abscess of buttock: Status: Acute (3) Sepsis: Status: Acute (4) Acute deep vein thrombosis (DVT) of iliac vein of both lower extremities: Status: Acute Plan This is a 29-year-old male with a PMH significant for asthma and autism who presents to the ED for evaluation of fever x4-5 days found to have multiple issues including acute thrombus of left common iliac vein and bilateral internal iliac veins and acute UTI with sepsis with concerns for genitourinary abscess vs neoplasm. Sepsis due to buttock abscess strep viridans bacteremia urine culture negative (was treated with doxycyline for 3d prior to admission) remained febrile overnight, leukocytosis resolved Surveillance blood cultures pending Continue IV Zosyn, and vancomycin started 12/29/2024 Buttock abscess repeat Pelvic CT with complex fluid collection at at base of penis with possible communication to more complex fluid collection in the left ischorectal fossa seen by General surgery -s/p I&D of left buttock - wound culture neg seen by urology, normal urological exam, no further intervention required. recommend outpatient follow up with urology continue vancomycin and zosyn Continue to recommend Weathers, pt declines Acute iliac vein thrombus CT showing left common iliac vein and bilateral internal iliac vein thrombus Unclear etiology. pt does have family history of blood clots. concern for possible malignancy on initial CT, follow up pelvic CT bladder now well visualized b/l doppler US negative vascular surgery following, no surgical intervention planned at this time Change heparin drip to eliquis may need outpatient follow up with hematology Hyperchloremic metabolic acidosis due to IVF improving, bicarb normalized chronic normocytic anemia H/H stable thrombocytosis likely reactive due to acute infection Mild intermittent asthma Not in acute exacerbation Continue home inhalers Autism/mood disorder Continue hydroxyzine Full Code DVT Prophylaxis heparin drip transition to Eliquis requires ongoing inpatient hospitalization for treatment of?acute thrombus of left common iliac vein and bilateral internal iliac veins and acute UTI with sepsis with buttock abscess requiring IV antibiotics, heparin drip, and specialist evaluation Quality Stroke Does the patient have a stroke diagnosis?: No VTE Prior VTE?: No VTE Risk Level:: Medical - moderate - high VTE Device Contraindication: Treatment Not Indicated VTE Drug Contraindication: N/A - Med Ordered
--- NOTE | 2025-01-02 12:32 | MHC.CM.PN ---
PT W/ILIAC VEIN THROMBUS, SEPSIS, BUTTOCK ABSCESS, PT COMPLETING HEPERAIN DRIP, PLAN TO START ELIQUIS, REMAINS ON IV VANCO, NO PLAN FOR DC AT THIS TIME, CM WILL CONT TO FOLLOW DC NEEDS.
--- NOTE | 2025-01-02 12:45 | PM.EVENT ---
Event Note Date of Service: 01/02/25 Event Note: Progress note to follow by my PA. I have seen and evaluated the patient and agree with history, findings, assessment and plan documented by Karin Yousif PA-c. Briefly this is a patient with acute left iliac DVT finding in the setting of left ischiorectal abscess. This has been drained by General surgery. We did have an extensive discussion yesterday about risks benefits of operation versus the risk of a PE with his current iliac thrombus. I do think that the DVT is more related to a reactive/inflammatory situation as opposed to an idiopathic DVT. Would recommend formal anticoagulation once deemed stable by General surgery. We will follow on an as-needed basis. Thank you for allowing us to assist in his care. Time Spent With Patient Time: Total time managing care of this patient today ____ minutes.
--- NOTE | 2025-01-02 13:21 | HO.VASCPN ---
Subjective Subjective Date of Service: 01/02/25 Interval history: William is doing ok this morning. He states he is feeling much better after another I&D of the abscess in the OR yesterday. He appears comfortable. He has no new concerns this morning. Physical Exam Vital Signs: Vital Signs: Last Vital Signs Temp 99.0 F 01/02/25 11:14 Pulse 81 01/02/25 11:14 Resp 20 01/02/25 11:14 BP 118/72 01/02/25 11:14 Pulse Ox 96 01/02/25 11:14 O2 Del Method Room Air 01/02/25 11:14 O2 Flow Rate 2 01/01/25 20:10 BMI result Body Mass Index 28.9 Const: General: comfortable and no acute distress Orientation/consciousness: patient oriented x3 HEENT: Ears: hearing grossly normal bilaterally Resp: Effort & Inspection: normal respiratory effort and able to speak in complete sentences Auscultation: clear to auscultation bilaterally Cardio: Rate: regular rate Rhythm: regular rhythm Heart sounds: S1 normal heart sound present and S2 normal heart sound present Bruits: no abdominal aortic bruits, no carotid bruits, no femoral bruits and no renal bruits GI: Palpation (GI): No Abdominal aortic bruit present Neuro: General: patient oriented x3 Cranial nerves: Yes CN's II-XII intact bilaterally Extrem: Other: Bilateral lower extremities: no swelling/erythema noted. Palpable DP pulses. Progress Note: A&P Assessment and plan (1) Acute deep vein thrombosis (DVT) of iliac vein of both lower extremities: Status: Acute Assessment and Plan: William remains stable from a vascular standpoint. He continues on Heparin for the DVT in his iliacs, likely reactive/inflammatory due to the ongoing abscess. We recommend to transistion to oral anticoagulation, Eliquis, once he is cleared by Gen Surgery. We will continue to monitor. If there are any questions or concerns, please do not hesitate to reach out to us. Time Spent With Patient Time: Total time managing care of this patient today ____ minutes. Procedures Date of Service Date of Service: 01/02/25 Quality Stroke Does the patient have a stroke diagnosis?: No VTE Prior VTE?: No VTE Risk Level:: Medical - moderate - high VTE Device Contraindication: Treatment Not Indicated VTE Drug Contraindication: N/A - Med Ordered
[2025-01-02 14:51] LABS: Vancomycin Random 14.4 mcg/mL (15-20)
--- NOTE | 2025-01-02 15:00 | HE.PHANOTE ---
RE: VANCO DOSING Trough came back as 14.7 mg/L. Dose is continued as 1250 mg q12h, next trough is scheduled for 01/03/25 @1400.
[2025-01-02] MEDS: vancomycin HCL 1,250 MG in 0.9 % Sodium Chloride 250 ML 166.67 MG IV (16:05)
[2025-01-02 16:39] VITALS: BP 118/69; PULSE 75; RESP 16; TEMP 36.8; O2SAT 96
--- NOTE | 2025-01-02 16:50 | P.CNID_ITS ---
History of Present Illness Data of Consult Service Date: 01/02/25 Requesting physician: Christine Davidson Primary Care Provider: Ramiro Denny PA-C HPI Reason for consult: strep viridans bacteremia and wound He presents with fever for five days on 12/29. He also had nausea,vomiting and diarrhea. It was felt he had UTI and given Doxycycline. He had pelvic discomfort and abscesses ischium laterally. Review of Systems 2 Review of Systems: Yes all other systems are reviewed and are negative PMFSH Past Medical History Medical History Mild intermittent asthma Autism Family History Family history: reviewed and not pertinent Social History Social History Household Members: None Housing: Apartment Alcohol intake: never Patient Tobacco Use Status: Never used Tobacco Tobacco use type: Cigarette Cigarette Packs Per Day: 1 e-Cigarette/Vaping Use: Never Used service: No Current occupational status: unemployed Meds Allergies Allergy/AdvReac Type Severity Reaction Status Date / Time No Known Allergies Allergy Verified 12/29/24 09:16 [No Known Allergies*] Active Medications: Current Medications Acetaminophen (Acetaminophen 325 Mg Tablet) 650 mg PO Q6H PRN PRN Reason: Pain, Mild 1-3,fever,headache Last Admin: 01/01/25 21:15 Dose: 650 mg Albuterol Sulfate (Albuterol Sulfate (0.083%) 2.5 Mg/3 Ml Vial.Neb) 2.5 mg INHALE Q8H PRN PRN Reason: shortness of breath or wheezing Last Admin: 01/01/25 18:25 Dose: 2.5 mg Albuterol Sulfate (Albuterol Sulfate 90 Mcg 8 Gm Inhaler) 1 puff INHALE Q4H PRN PRN Reason: for wheezing Apixaban (Apixaban 5 Mg Tablet) 10 mg PO BID [facility] Stop: 01/09/25 09:01 Benzonatate (Benzonatate 100 Mg Capsule) 100 mg PO TID PRN PRN Reason: Cough Calcium Carbonate (Calcium Carbonate 750 Mg Tab.Chew) 750 mg PO Q4H PRN PRN Reason: Heartburn Docusate Sodium (Docusate Sodium 100 Mg Capsule) 100 mg PO BID [facility] Last Admin: 01/02/25 08:17 Dose: 100 mg Heparin Sodium (Porcine) (Heparin Sodium,Porcine 5,000 Unit/Ml Vial) 3,500 unit IVPUSH PROTOCOL BOLUS PRN; Protocol PRN Reason: 40 unit/kg - Heparin Protocol Last Admin: 12/31/24 14:51 Dose: 3,500 unit Heparin Sodium (Porcine) (Heparin Sodium,Porcine 5,000 Unit/Ml Vial) 7,000 unit IVPUSH PROTOCOL BOLUS PRN; Protocol PRN Reason: 80 unit/kg - Heparin Protocol Last Admin: 12/30/24 04:43 Dose: 7,000 unit Hydroxyzine HCl (Hydroxyzine Hcl 25 Mg Tablet) 25 mg PO BEDTIME PRN PRN Reason: Anxiety/Sleep Heparin Sodium/Sodium Chloride (Heparin Sodium,Porcine/1/2ns) 25,000 unit in 250 mls @ 0 mls/hr IVCONT .Q0M PAMELA; Protocol Stop: 01/02/25 19:00 Last Admin: 01/02/25 11:31 Dose: 26 units/kg/hr, 22.75 mls/hr Piperacillin Sod/Tazobactam (Sod 3.375 gm/ Sodium Chloride) 50 mls @ 100 mls/hr IV Q6H [facility] Last Infusion: 01/02/25 15:35 Dose: Infused Vancomycin HCl 1,250 mg/ (Sodium Chloride) 250 mls @ 166.667 mls/hr IV Q12H [facility] Last Admin: 01/02/25 16:05 Dose: 166.67 mls/hr Magnesium Hydroxide (Milk Of Magnesia 30 Ml Oral.Susp) 30 ml PO DAILY PRN PRN Reason: Constipation Melatonin (Melatonin 3 Mg Tablet) 6 mg PO BEDTIME PRN PRN Reason: Insomnia Morphine Sulfate (Morphine Sulfate 4 Mg/Ml Cartridge) 4 mg IVPUSH Q4H PRN; Protocol PRN Reason: Pain, Severe (Pain Scale 7-10) Last Admin: 01/01/25 01:59 Dose: 4 mg Ondansetron HCl (Ondansetron Hcl 4 Mg/2 Ml Vial) 4 mg IVPUSH Q8H PRN PRN Reason: Nausea and Vomiting Oxycodone HCl (Oxycodone Hcl Immed Release 5 Mg Tablet) 10 mg PO Q4H PRN PRN Reason: Pain, Moderate(Pain Scale 4-6) Last Admin: 01/02/25 16:08 Dose: 10 mg Pharmacy Consult (Consult Rx Vancomycin Dosing) 1 each MISCELLANE DAILY PRN PRN Reason: Consult order Sodium Chloride (0.9 % Sodium Chloride Flush 3 Ml Syringe) 3 ml IVFLUSH [facility] Last Admin: 01/02/25 16:06 Dose: Not Given Home Medications ?Medication ?Instructions ?Recorded ?Confirmed ?Last Taken ?Type doxycycline hyclate 100 mg capsule 100 mg PO BID 12/29/24 12/29/24 12/29/24 History hydroxyzine HCl 25 mg tablet 25 mg PO BEDTIME PRN Anxiety/Sleep 12/29/24 12/29/24 Unknown History Physical Exam 2 Vital Signs: Vital Signs: Last Vital Signs Temp 98.2 F 01/02/25 16:39 Pulse 75 01/02/25 16:39 Resp 16 01/02/25 16:39 BP 118/69 01/02/25 16:39 Pulse Ox 96 01/02/25 16:39 O2 Del Method Room Air 01/02/25 16:39 O2 Flow Rate 2 01/01/25 20:10 BMI result Body Mass Index 28.9 Const: General: cooperative HEENT: Head: Yes normal to inspection Face and sinus: Yes normal facial exam Mouth: Normal oral and palatal mucosa present Teeth and gingiva: d entition normal Eyes: General: appearance normal, both eyes and all related structures P upils: Equal, round and reactive pupils present Resp: Effort & Inspection: normal respiratory effort Cardio: Rate: regular rate Rhythm: regular rhythm GI: Other: discomfort lower pelvic area Palpation (GI): Soft to palpation and nontender : General: Yes no CVA tenderness Back/Spine/Pelvis: Back: no CVA tenderness Skin: General skin exam: no rashes or lesions noted Neuro: General: moves all extremities Cranial nerves: Yes Equal, round and reactive pupils present Extrem: General: Yes normal to inspection Psych: Appearance: grossly normal Results Labs 01/01/25 03:20 01/02/25 05:54 Labs: BMP 01/02/25 05:54 Creatinine 0.72 Microbiology Microbiology Results: Microbiology 01/01/25 10:10 Blood - Venous Blood Culture - Preliminary No growth after 24 hours. 01/01/25 10:10 Blood - Venous Blood Culture - Preliminary No growth after 24 hours. 01/01/25 19:27 Abscess Ischiorectal Gram Stain - Final 01/01/25 19:27 Abscess Ischiorectal Routine Culture - Preliminary No growth to date. 12/30/24 12:43 Abscess Ischiorectal Gram Stain - Final 12/30/24 12:43 Abscess Ischiorectal Routine Culture - Final Streptococcus viridans group 12/29/24 16:50 Blood - Venous Blood Culture - Final Streptococcus viridans group 12/29/24 16:50 Blood - Venous Blood Culture - Preliminary No growth after 48 hours. 12/29/24 Unknown Urine clean catch - Clean Catch Midstream Urine Culture - Final No growth. Assessment and Plan (1) Bacteremia: Status: Acute (2) Abscess of buttock: Status: Acute (3) Cystitis: Status: Acute (4) Acute deep vein thrombosis (DVT) of iliac vein of both lower extremities: Status: Acute Plan Would use IV Zosyn or IV Ceftriaxone and flagyl. When improved po Augmentin two weeks likely.
[2025-01-02 20:00] VITALS: BP 124/81; PULSE 81; RESP 16; TEMP 37.4; O2SAT 97
[2025-01-02] MEDS: Apixaban 5 MG TABLET 10 MG PO (20:27)
[2025-01-03] VITALS: BP 133/83; PULSE 72; RESP 16; TEMP 36.9; O2SAT 96
[2025-01-03] MEDS: oxyCODONE HCl Immed Release 5 MG TABLET 10 MG PO ×3 (00:34→10:20)
[2025-01-03] MEDS: Piperacillin Sodium/Tazobactam 3.375 GM in 0.9 % Sodium Chloride 50 ML IV ×2 (02:38→08:15)
[2025-01-03] MEDS: hydrOXYzine HCL 25 MG TABLET PO (02:39)
[2025-01-03 04:00] VITALS: BP 135/75; PULSE 69; RESP 16; TEMP 36.9; O2SAT 98
[2025-01-03] MEDS: vancomycin HCL 1,250 MG in 0.9 % Sodium Chloride 250 ML 166.7 MG IV (04:30)
[2025-01-03 06:24] LABS: Hematocrit 28.6 % (42.0-52.0); Hemoglobin 9.2 g/dl (14.0-18.0); Mean Corpuscular HGB Conc 32.2 g/dl (31.0-36.0); Mean Corpuscular Hemoglobin 27.1 pg (27.0-33.0); Mean Corpuscular Volume 84.1 fL (80.0-98.0); Mean Platelet Volume 8.9 fL (9.4-12.4); Platelet Count 538 X10*3/uL (160-400); Red Cell Distribution Width 14.1 % (11.0-16.0); White Blood Count 8.5 X10*3/uL (4.8-10.8)
[2025-01-03 06:31] LABS: PTT Heparin Drip 29.6 SEC (53-77.9)
[2025-01-03 06:37] LABS: Creatinine Clr Calc Pharmacy 140.7; Estimated Glomerular Filt Rate > 60
[2025-01-03 07:36] VITALS: BP 114/67; PULSE 76; RESP 18; TEMP 36.8; O2SAT 95
[2025-01-03] MEDS: Apixaban 5 MG TABLET 10 MG PO (08:15)
[2025-01-03] MEDS: Docusate Sodium 100 MG CAPSULE PO (08:15)
[2025-01-03] MEDS: Morphine Sulfate 4 MG/ML CARTRIDGE IVPUSH (08:20)
--- NOTE | 2025-01-03 08:48 | PM.DS ---
DS: Providers Provider Date of Service: 01/03/25 Date of admission: 12/29/24 22:29 Date of discharge: 01/03/25 Primary care physician: Ramiro Denny PA-C Consults: 12/29/24 22:34 Consult to General Surgery Routine Consulting Provider: [facility] General Surgeons Reason for consultation: ?Genitourinary/anal abscess 12/29/24 22:45 Consult to Urology Routine Consulting Provider: [facility] Urology Services Reason for consultation: Complex UTI/abscess/?Neoplasm 12/30/24 07:42 Consult to Vascular Surgery Routine Consulting Provider: [facility] Vascular Services Reason for consultation: left common iliac vein and b/l internal iliac veins thrombus Has provider been notified: No 01/01/25 09:01 Consult to Infectious Diseases Routine Consulting Provider: [facility] Infect[facility] Disease [facility] Reason for consultation: ichialrectal abscess ?bacteremia Has provider been notified: No DS: Diagnosis Discharge Diagnosis (1) Bacteremia: Status: Acute (2) Abscess of buttock: Status: Acute (3) Cystitis: Status: Acute (4) Acute deep vein thrombosis (DVT) of iliac vein of both lower extremities: Status: Acute DS: Summary Hospital Course Hospital Course: History and physical as per admitting provider. Pt is a 29-year-old male with a PMH significant for asthma and autism? who presents to the ED for evaluation of fever x4-5 days. Reports has been experiencing fever at home measured as high as 104-105 for the past few days, temporarily relieved with Tylenol and Motrin. Was diagnosed with UTI 3 days ago and started on doxycycline. Began experiencing nausea, vomiting, intermittent abdominal pain, and diarrhea shortly after beginning antibiotics. Also complains of painful lump on his left buttock for the past few days; is unsure exactly when he 1st noticed it. Denies unintentional weight loss, though notes he has been feeling increasingly fatigued the past few weeks. 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 No SOB or difficulty breathing. Denies chest pain/pressure, palpitations. Reports occasionally smokes marijuana, last used 3 months ago. Denies hx of IVDU. Rectal exam was performed by ED provider who noted greenish discharge from anus with pressing on left buttock. In the ED pt was febrile up to 102.1, tachycardic up to 111, tachypneic up to 26, and hypotension as low as 87/43. Labs were significant for leukocytosis 17.1, H&H 11.2/34.0, platelets 577, alk-phos 122, and albumin 2.9. No significant electrolyte abnormalities. Renal function baseline. Hepatic function WNL. Lactic acid WNL at 1.7. UA consistent with acute UTI. Tested negative for flu, COVID, RSV. CXR without acute cardiopulmonary disease. CT?of abdomen and pelvis with multiple findings, including thrombus within left common iliac vein and bilateral internal iliac veins, thickening and nodularity of bladder wall possibly secondary to infection or neoplasm. Shows infiltration of fat adjacent to bladder, prostate gland, seminal vesicles, and within presacral space suggesting additional areas of involvement. Also found partial visualization of a mass or complex fluid collection involving the posterior inferior base of the penis on the left side in the adjacent perineum possible fluid collection within the adjacent left obturator internus muscle. Pt was treated with IVF, acetaminophen, Zosyn, ketorolac, and started on heparin drip. Pt will be admitted to the hospital for treatment and further evaluation acute thrombus of left common iliac vein and bilateral internal iliac veins and acute UTI with sepsis with concerns for genitourinary abscess vs neoplasm. 29-year-old man treated for sepsis secondary to buttock abscess with strep viridans bacteremia and acute iliac vein thrombosis. Patient had previously been treated for a UTI with doxycycline. He was treated with IV Zosyn and vancomycin for the strep viridans as well as the buttock abscess. Pelvic CT showed complex fluid collection at the base of the penis with complex fluid collection in the left ischiorectal fossa. Seen and evaluated by General surgery, status post I&D of left buttock wound, wound culture negative. Seen and evaluated by Urology with normal neurologic exam and no further intervention required. Patient was found to have acute iliac vein thrombosis, CT showing left common iliac vein and bilateral internal iliac vein thrombosis of unclear etiology. Bilateral Doppler ultrasounds negative, seen and evaluated by vascular surgery with no surgical intervention required, initially on IV heparin drip and changed to Eliquis. Should follow up with Hematology outpatient for further workup of new thrombosis. Plan: Eliquis 10 mg twice daily for 7 days then 5 mg twice daily, follow up with Hematology for workup of thrombus Augmentin for 14 days for strep viridans bacteremia Visiting nurse for assistance with dressing changes, daily warm soaks in a tub, followed by 4x4 gauze and abd pads daily and prn. He should follow up in the office in one week. Hyperchloremic metabolic acidosis. Treated with IV fluids Chronic normocytic anemia. Stable H&H, did not require blood transfusion during hospitalization Thrombocytosis, likely reactive due to acute infection Mild intermittent asthma. No acute exacerbation during hospitalization. Continue home inhalers Autism/mood disorder. Continue hydroxyzine Time Attestation Discharge Coordination Time (in mins): 45 Quality: Safe Use of Opioids Does Pt have an Active Cancer Diagnosis on the Problem List?: No Quality: Stroke Does the patient have a stroke diagnosis?: No Physical Exam Vital Signs: Vital Signs: Last Vital Signs Temp 98.3 F 01/03/25 07:36 Pulse 76 01/03/25 07:36 Resp 18 01/03/25 07:36 BP 114/67 01/03/25 07:36 Pulse Ox 95 01/03/25 07:36 O2 Del Method Room Air 01/03/25 07:36 O2 Flow Rate 2 01/01/25 20:10 BMI result Body Mass Index 28.9 Appearing in no acute distress head is normocephalic atraumatic eyes pupils are PERRLA sclera is anicteric mouth throat mucous membranes are intact and moist neck is supple no lymphadenopathy, no JVD noted lung sounds are clear to auscultation heart regular rate rhythm, clear S1, S2 positive bowel sounds, abdomen is soft, nontender neuro patient is alert x3, no focal deficits DS: Data Data Completed and Pending Labs on day of discharge: Laboratory Results - last 24 hr 01/02/25 01/03/25 14:04 06:08 WBC 8.5 RBC 3.40 L Hgb 9.2 L Hct 28.6 L MCV 84.1 MCH 27.1 MCHC 32.2 RDW 14.1 Plt Count 538 H MPV 8.9 L Absolute Nucleated RBC 0.000 Nucleated RBC % (auto) 0.0 aPTT Heparin Protocol 29.6 L D Creatinine 0.82 Estim Creat Clear Calc 140.7 Estimated GFR > 60 Random Vancomycin 14.4 L Preliminary micro results at discharge 01/01/25 19:27 Routine Culture - Preliminary Abscess Ischiorectal No growth to date. 01/01/25 10:10 Blood Culture - Preliminary Blood - Venous No growth after 24 hours. 01/01/25 10:10 Blood Culture - Preliminary Blood - Venous No growth after 24 hours. 12/29/24 16:50 Blood Culture - Preliminary Blood - Venous No growth after 48 hours. Discharge Plan Discharge Anticipated Discharge Date/Time: 01/03/25 08:46 Patient Disposition: Home Health Service Discharge Diagnosis: Sepsis Strep viridans bacteremia Buttock abscess Acute iliac vein thrombosis Referrals: Ramiro Denny PA-C [Primary Care Provider] - 1 Week Xavier Domingo MD [Physician] - 1 Week Discharge Medications: New amoxicillin-pot clavulanate 875-125 mg tablet 1 tab PO BID Qty: 28 0RF Eliquis 5 mg Tablet 10 mg PO BID Qty: 60 0RF Rx Instructions: Take 10 mg twice daily (12 doses left) then 5 mg twice daily Continued albuterol sulfate 2.5 mg /3 mL (0.083 %) solution for nebulization 2.5 mg inhalation Q8H PRN (Reason: shortness of breath or wheezing) Qty: 225 3RF albuterol sulfate 90 mcg/actuation HFA aerosol inhaler 1 puff inhalation Q4H PRN (Reason: for wheezing) Qty: 8.5 3RF hydroxyzine HCl 25 mg tablet 25 mg PO BEDTIME PRN (Reason: Anxiety/Sleep) Discontinued doxycycline hyclate 100 mg capsule 100 mg PO BID Discharge Orders: Discharge Order (Routine); Ordered 01/03/25 Ordered By: Christine Davidson Diet: Advance to usual diet Activity on Discharge: As tolerated Stand Alone Forms: Patient Portal Discharge page Print Language: Estonian Care Plan Goals: He had been started on Eliquis. Take 10 mg twice a day for a total of 7 days then 5 mg twice a day daily warm soaks in a tub, followed by 4x4 gauze and abd pads daily and prn. He should follow up in the office in one week. Health Concerns: Sepsis Strep viridans bacteremia Buttock abscess Acute iliac vein thrombosis Plan of Treatment: Follow-up with primary care provider in 1-2 weeks Take all medications as prescribed Assessment: See discharge summary
--- NOTE | 2025-01-03 08:57 | HO.VASCPN ---
Subjective Subjective Date of Service: 01/03/25 Interval history: William is doing ok this morning. He continues to endorse pain at the site of the abscess. He denies any leg swelling/pain or abd discomfort. He has no new concerns this morning. Physical Exam Vital Signs: Vital Signs: Last Vital Signs Temp 98.3 F 01/03/25 07:36 Pulse 76 01/03/25 07:36 Resp 18 01/03/25 07:36 BP 114/67 01/03/25 07:36 Pulse Ox 95 01/03/25 07:36 O2 Del Method Room Air 01/03/25 07:36 O2 Flow Rate 2 01/01/25 20:10 BMI result Body Mass Index 28.9 Const: General: comfortable and no acute distress Orientation/consciousness: patient oriented x3 HEENT: Ears: hearing grossly normal bilaterally Resp: Effort & Inspection: normal respiratory effort and able to speak in complete sentences Auscultation: clear to auscultation bilaterally Cardio: Rate: regular rate Rhythm: regular rhythm Heart sounds: S1 normal heart sound present and S2 normal heart sound present Bruits: no abdominal aortic bruits, no carotid bruits, no femoral bruits and no renal bruits GI: Palpation (GI): No Abdominal aortic bruit present Neuro: General: patient oriented x3 Cranial nerves: Yes CN's II-XII intact bilaterally Extrem: Other: Bilateral lower extremities: no swelling or erythema noted. Palpable DP pulses. Progress Note: A&P Assessment and plan (1) Acute deep vein thrombosis (DVT) of iliac vein of both lower extremities: Status: Acute Assessment and Plan: William remains stable from a vascular standpoint. He continues on Heparin for the DVT in his iliacs, likely reactive/inflammatory due to the ongoing abscess. We recommend to transistion to oral anticoagulation, Eliquis, once he is cleared by Gen Surgery and can be discharged home. We will continue to monitor. If there are any questions or concerns, please do not hesitate to reach out to us. Time Spent With Patient Time: Total time managing care of this patient today ____ minutes. Procedures Date of Service Date of Service: 01/03/25 Quality Stroke Does the patient have a stroke diagnosis?: No VTE Prior VTE?: No VTE Risk Level:: Medical - moderate - high VTE Device Contraindication: Treatment Not Indicated VTE Drug Contraindication: N/A - Med Ordered
[2025-01-03] MEDS: metroNIDAZOLE/NS 500 MG/100 ML PIGGYBACK 100 MG IV (09:07)
[2025-01-03 11:39] VITALS: BP 116/65; PULSE 96; RESP 18; TEMP 37.4; O2SAT 97
--- NOTE | 2025-01-03 12:10 | W.MHC.F2F ---
Service Date Service Date: 01/03/25 Encounter Date of encounter: 01/03/25 Reasons for Services Signs and symptoms assessed: Buttock abscess daily warm soaks in a tub, followed by 4x4 gauze and abd pads daily and prn. He should follow up in the office in one week. Reason for correction: wound care Homebound: Leaving the home is medically contraindicated at this time without the asist of a device and/or another person due th the listed conditions above and below. Reason homebound: weakness related to hospital stay Certification: Based on the above findings, I certify that this patient is confined to the home and needs intermittent correction care, physical therapy and/or speech therapy, or continues to need occupational therapy. The patient is under my care, and I have initiated the establishment of the plan of care. The patient will be followed by a physician who will periodically review the plan of care. Time Spent With Patient Time: Total time managing care of this patient today ____ minutes.
--- NOTE | 2025-01-03 12:12 | P.PNGS_ITS ---
Subjective Subjective Date of Service: 01/03/25 Interval history: Patient not very talkative, reporting some perianal pain Physical Exam 2 Vital Signs: Vital Signs: Last Vital Signs Temp 99.4 F 01/03/25 11:39 Pulse 96 01/03/25 11:39 Resp 18 01/03/25 11:39 BP 116/65 01/03/25 11:39 Pulse Ox 97 01/03/25 11:39 O2 Del Method Room Air 01/03/25 11:39 O2 Flow Rate 2 01/01/25 20:10 BMI result Body Mass Index 28.9 Const: General: no acute distress Nutritional Appearance: well nourished Orientation/consciousness: patient oriented x3 Resp: Effort & Inspection: normal respiratory effort Back/Spine/Pelvis: Other: Dressings to incision in perirectal location changed. Wick removed and dry sterile dressings applied. No erythema noted in the surrounding skin. No tenderness to palpation. Neuro: General: patient oriented x3 Extrem: Other: No edema or erythema Objective Data Active Medications Acetaminophen (Acetaminophen 325 Mg Tablet) 650 mg PO Q6H PRN PRN Reason: Pain, Mild 1-3,fever,headache Last Admin: 01/01/25 21:15 Dose: 650 mg Documented By: DELBERT Albuterol Sulfate (Albuterol Sulfate (0.083%) 2.5 Mg/3 Ml Vial.Neb) 2.5 mg INHALE Q8H PRN PRN Reason: shortness of breath or wheezing Last Admin: 01/01/25 18:25 Dose: 2.5 mg Documented By: AGA Albuterol Sulfate (Albuterol Sulfate 90 Mcg 8 Gm Inhaler) 1 puff INHALE Q4H PRN PRN Reason: for wheezing Apixaban (Apixaban 5 Mg Tablet) 10 mg PO BID [facility] Stop: 01/09/25 09:01 Last Admin: 01/03/25 08:15 Dose: 10 mg Documented By: LESSARL Benzonatate (Benzonatate 100 Mg Capsule) 100 mg PO TID PRN PRN Reason: Cough Calcium Carbonate (Calcium Carbonate 750 Mg Tab.Chew) 750 mg PO Q4H PRN PRN Reason: Heartburn Docusate Sodium (Docusate Sodium 100 Mg Capsule) 100 mg PO BID [facility] Last Admin: 01/03/25 08:15 Dose: 100 mg Documented By: MELLY Hydroxyzine HCl (Hydroxyzine Hcl 25 Mg Tablet) 25 mg PO BEDTIME PRN PRN Reason: Anxiety/Sleep Last Admin: 01/03/25 02:39 Dose: 25 mg Documented By: DELBERT Comments: sleep Piperacillin Sod/Tazobactam (Sod 3.375 gm/ Sodium Chloride) 50 mls @ 100 mls/hr IV Q6H [facility] Last Infusion: 01/03/25 09:10 Dose: Infused Documented By: MELLY Metronidazole (Flagyl) 500 mg in 100 mls @ 100 mls/hr IV Q8H [facility] Last Infusion: 01/03/25 10:20 Dose: Infused Documented By: MELLY Magnesium Hydroxide (Milk Of Magnesia 30 Ml Oral.Susp) 30 ml PO DAILY PRN PRN Reason: Constipation Melatonin (Melatonin 3 Mg Tablet) 6 mg PO BEDTIME PRN PRN Reason: Insomnia Morphine Sulfate (Morphine Sulfate 4 Mg/Ml Cartridge) 4 mg IVPUSH Q4H PRN; Protocol PRN Reason: Pain, Severe (Pain Scale 7-10) Last Admin: 01/03/25 08:20 Dose: 4 mg Documented By: MELLY Ondansetron HCl (Ondansetron Hcl 4 Mg/2 Ml Vial) 4 mg IVPUSH Q8H PRN PRN Reason: Nausea and Vomiting Oxycodone HCl (Oxycodone Hcl Immed Release 5 Mg Tablet) 10 mg PO Q4H PRN PRN Reason: Pain, Moderate(Pain Scale 4-6) Last Admin: 01/03/25 10:20 Dose: 10 mg Documented By: MELLY Pharmacy Consult (Consult Rx Vancomycin Dosing) 1 each MISCELLANE DAILY PRN PRN Reason: Consult order Sodium Chloride (0.9 % Sodium Chloride Flush 3 Ml Syringe) 3 ml IVFLUSH QSHIFT [facility] Last Admin: 01/03/25 08:20 Dose: Not Given Documented By: MELLY Non-Admin Reason: IV Running Labs 01/03/25 06:08 01/03/25 06:08 Labs: Laboratory Results - last 24 hr 01/02/25 01/03/25 14:04 06:08 MCV 84.1 MCH 27.1 MCHC 32.2 RDW 14.1 Plt Count 538 H MPV 8.9 L Absolute Nucleated RBC 0.000 Nucleated RBC % (auto) 0.0 aPTT Heparin Protocol 29.6 L D Estim Creat Clear Calc 140.7 Estimated GFR > 60 Random Vancomycin 14.4 L Microbiology Microbiology Results: Microbiology 01/01/25 19:27 Gram Stain - Final Abscess Ischiorectal Routine Culture - Preliminary No growth to date. 01/01/25 10:10 Blood Culture - Preliminary Blood - Venous No growth after 24 hours. 01/01/25 10:10 Blood Culture - Preliminary Blood - Venous No growth after 24 hours. Procedures Date of Service Date of Service: 01/03/25 Progress Note: A&P Assessment and plan (1) Abscess of buttock: Status: Acute Plan 29-year-old status post incision and drainage of a ischiorectal abscess. Recommend daily warm soaks in the tub or Sitz bath followed by dry sterile dressings including 4 x 4 gauze and ABD pad. He should follow up in the office in approximately 1 week. Time Spent With Patient Time: Total time managing care of this patient today ____ minutes. Quality Stroke Does the patient have a stroke diagnosis?: No VTE Prior VTE?: No VTE Risk Level:: Medical - moderate - high VTE Device Contraindication: Treatment Not Indicated VTE Drug Contraindication: N/A - Med Ordered
--- NOTE | 2025-01-03 13:38 | MHC.CM.PN ---
Second IMM given 01/03. Pt is medically cleared for discharge home with new [facility] services, pts mother will transport him home today, he will temporarily be staying with his mother so she can help him until he's recovered.
--- NOTE | 2025-01-05 11:28 | PM.EVENT ---
Event Note Date of Service: 01/05/25 Event Note: Informed by lab of positive blood cultures (initial cultures from 12/29 showed 1/2 bottles growing Strep Viridans, now second also positive) Chart reviewed and case d/w Dr. Christensen who reccommends to f/u in her clinic next week. Called patient and phone went unanswered. Called patients mother who did answer. Informed of the need to f/u up in the ID clinic. She will call and make f/u appt for next week. Time Spent With Patient Time: Total time managing care of this patient today ____ minutes.
--- NOTE | 2025-01-06 08:13 | P.CDIM_ITS ---
PROVIDER RESPONSE TEXT: To clarify, the appropriate diagnosis supported by the clinical indicators: subcutaneous fat and tissue QUERY TEXT: PHYSICIAN'S DOCUMENTATION REQUEST Date of Query: 01/02/2025 02:18 PM EDT Patient Name: William Dooley Admit Date: 12/30/2024 Dear Xavier Domingo MD, A review of the medical record indicates additional documentation may be needed. Please review below and update the documentation accordingly. Clinical Indicators: Incision and drainage left ischial rectal abscess on 12/30/24 The following diagnoses or signs and symptoms were noted in the patient record: an incision was made with an 11 blade. A forceps was then used to open the abscess cavity and drained the purulence. Wounds were irrigated with saline solution. Wounds were then packed with quarter-inch Nu Gauze. Sterile dres sings were then applied. Based on the above, could you clarify the depth of the I&D that supports the above abnormalities and additional evaluation, monitoring, and/or treatment rendered: skin subcutaneous fat and tissue muscle bone Other (explain) Clinically unable to determine (explain) Thank you, Zeniada Carrion RN Use of terms such as suspected, likely, concern for, or probable (associated with a specific diagnosi s that is being evaluated, monitored, or treated as if it exists) are acceptable and can be coded in the inpatient se tting, when documented at the time of discharge. Please use your independent medical judgment in providing your response. THIS QUERY IS PART OF THE PERMANENT MEDICAL RECORD
== END 2025-01-03 13:59 | disposition home health service (06) | DRG 872 ==
LOC: HO.ED 21:56 → HO.EDOVER 22:56 → HO.IMC 12-30 08:59
PROVIDERS: Internal Medicine; Nurse Practitioner Family; Physician Assistant; Physician Assistant Medical; Surgery; Admitting Provider Student in an Organized Health Care Education/Training Program; Emergency Provider Emergency Medicine; PCP Physician Assistant; Visit Provider Nurse Practitioner Acute Care
PROC: 0J9B0ZZ Drainage of Perineum Subcutaneous Tissue and Fascia, Open Approach (ICD-10-PCS; CPT 46040; principal; 2025-01-01 18:30)
DX: A41.9 Sepsis, unspecified organism (principal); L02.31 Cutaneous abscess of buttock; F84.0 Autistic disorder; I82.423 Acute embolism and thrombosis of iliac vein, bilateral; E87.20 Acidosis, unspecified; N30.00 Acute cystitis without hematuria; B95.4 Other streptococcus as the cause of diseases classified elsewhere; K61.39 Other ischiorectal abscess; D64.9 Anemia, unspecified; D75.838 Other thrombocytosis; J45.20 Mild intermittent asthma, uncomplicated; Z20.822 Contact with and (suspected) exposure to COVID-19; Z79.899 Other long term (current) drug therapy
CPT/HCPCS: 0241U; 36415; 71046; 72192; 72193; 74177; 80048; 80053; 80202; 81001; 82565; 83605; 83690; 85025; 85027; 85610; 85730; 87040; 87070; 87077; 87086; 87186; 87205; 93970; 97161; 99285; J0131; J1100; J1644; J1836; J1885; J2003; J2004; J2250; J2270; J2405; J2543; J2704; J3010; J3370; J3371; J7120; Q9967

== ENCOUNTER → 2024-12-29 15:53 | Outpatient (BNV) | payer MEDICARE, MEDICAID, SELFPAY | PROVIDERS: Emergency Provider Emergency Medicine; PCP Physician Assistant; Visit Provider Radiology Diagnostic Radiology | DX: R50.9 Fever, unspecified (principal); N39.0 Urinary tract infection, site not specified | CPT/HCPCS: 71046 ==

== ENCOUNTER 2024-12-29 22:29 | Outpatient (BNV) | payer MEDICARE, MEDICAID, SELFPAY | END 2024-12-30 09:20 | PROVIDERS: Admitting Provider Student in an Organized Health Care Education/Training Program; Emergency Provider Emergency Medicine; PCP Physician Assistant; Visit Provider Radiology Diagnostic Radiology | DX: M79.604 Pain in right leg (principal); M79.605 Pain in left leg; N30.00 Acute cystitis without hematuria | CPT/HCPCS: 72193; 93970 ==

== ENCOUNTER 2024-12-29 22:29 | Outpatient (BNV) | payer MEDICARE, MEDICAID, SELFPAY | END 2025-01-01 14:14 | PROVIDERS: Admitting Provider Student in an Organized Health Care Education/Training Program; Emergency Provider Emergency Medicine; PCP Physician Assistant; Visit Provider Radiology Diagnostic Radiology | DX: K61.39 Other ischiorectal abscess (principal) | CPT/HCPCS: 72192 ==

== ENCOUNTER → 2024-12-29 22:29 | Outpatient (BNV) | payer MEDICARE, MEDICAID, SELFPAY | PROVIDERS: Admitting Provider Student in an Organized Health Care Education/Training Program; Emergency Provider Emergency Medicine; PCP Physician Assistant; Visit Provider Internal Medicine | DX: R78.81 Bacteremia (principal); L02.31 Cutaneous abscess of buttock; N30.90 Cystitis, unspecified without hematuria; I82.423 Acute embolism and thrombosis of iliac vein, bilateral | CPT/HCPCS: 99222 ==

== ENCOUNTER → 2024-12-29 22:29 | Outpatient (BNV) | payer MEDICARE, MEDICAID, SELFPAY | PROVIDERS: Admitting Provider Student in an Organized Health Care Education/Training Program; Emergency Provider Emergency Medicine; PCP Physician Assistant; Visit Provider Physician Assistant Medical | DX: R78.81 Bacteremia (principal); L02.31 Cutaneous abscess of buttock; A41.9 Sepsis, unspecified organism; I82.423 Acute embolism and thrombosis of iliac vein, bilateral | CPT/HCPCS: 99223; 99233; 99499 ==

== ENCOUNTER → 2024-12-29 22:29 | Outpatient (BNV) | payer MEDICARE, MEDICAID, SELFPAY | PROVIDERS: Admitting Provider Student in an Organized Health Care Education/Training Program; Emergency Provider Emergency Medicine; PCP Physician Assistant; Visit Provider Surgery | DX: L02.31 Cutaneous abscess of buttock (principal) | CPT/HCPCS: 46040; 99024; 99222; 99499 ==

== ENCOUNTER → 2024-12-29 22:29 | Outpatient (BNV) | payer MEDICARE, MEDICAID, SELFPAY | PROVIDERS: Admitting Provider Student in an Organized Health Care Education/Training Program; Emergency Provider Emergency Medicine; PCP Physician Assistant; Visit Provider Physician Assistant Surgical | DX: I82.423 Acute embolism and thrombosis of iliac vein, bilateral (principal) | CPT/HCPCS: 99222; 99232; 99499 ==

== ENCOUNTER → 2024-12-29 22:29 | Outpatient (BNV) | payer MEDICARE, MEDICAID, SELFPAY | PROVIDERS: Admitting Provider Student in an Organized Health Care Education/Training Program; Emergency Provider Emergency Medicine; PCP Physician Assistant; Visit Provider Urology | DX: N30.90 Cystitis, unspecified without hematuria (principal); L02.31 Cutaneous abscess of buttock | CPT/HCPCS: 99222 ==

== ENCOUNTER 2025-01-17 14:17 | Outpatient (AMB) | payer MEDICARE, MEDICAID, SELFPAY ==
--- NOTE | 2025-01-17 14:16 | MHC.OFFVIS ---
Vital Signs 01/17/25 14:20 Height 5 ft 9 in Weight 176 lb BMI 26.0 BP 120/74 Blood Pressure Location Lt brachial Position Sitting Pulse 97 Intake Visit Reasons: abscess buttock Intake Note: Patient is seen in office for ER follow up visit, following abscess of the buttock. Pt denies any issues after ER visit for abscess of the buttock. Pelvis CT: 01/01/25 ER/Abd CT:12/29/24 Residential Coordinator Required: No Accompanied by: Mother Allergies No Known Allergies [No Known Allergies*] Allergy (Verified 01/17/25 14:16) Medication List - Last Reconciled 01/17/25 by Xavier Domingo MD albuterol sulfate 2.5 mg (3 mL) inhalation Q8H PRN albuterol sulfate 90 mcg/actuation 1 puff inhalation Q4H PRN apixaban (Eliquis) 10 mg (2 x 5 mg) PO BID hydroxyzine HCl 25 mg PO BEDTIME PRN HPI Comments Details: 29-year-old male patient returning following a recent ischiorectal abscess which required incision and drainage on 12/30/2024 with a additional drainage on 01/01/2025. He was subsequently treated with IV antibiotics and then converted to Augmentin which he has now completed. He feels much improved and denies any pain in the buttock area. He returns today for wound check. [facility] Medical History Mild intermittent asthma Autism Social History Household Members: None Housing: Apartment Alcohol intake: never Patient Tobacco Use Status: Never used Tobacco Tobacco use type: Cigarette Cigarette Packs Per Day: 1 e-Cigarette/Vaping Use: Never Used service: No Current occupational status: unemployed Physical Exam Vital Signs: Last Vital Signs Pulse 97 01/17/25 14:20 BP 120/74 01/17/25 14:20 BMI result Body Mass Index 26.0 Const General: comfortable Nutritional Appearance: well nourished Orientation/consciousness: patient oriented x3 Resp Effort & Inspection: normal respiratory effort Back/Spine/Pelvis Other: Left buttock wound is clean and nearly completely healed. There is no palpable fluctuance, erythema, or tenderness. Neuro General: patient oriented x3 Assessment & Plan Assessment & Plan (1) Abscess of buttock: Code(s): L02.31 - Cutaneous abscess of buttock Category: Medical Plan Patient returns following incision and drainage of a large abscess of the buttock. He tolerated the procedure well and his wounds are healing nicely. He should follow up as needed. Coding Level of Care Code Global (68890) Diagnoses Abscess of buttock L02.31
[2025-01-17 14:20] VITALS: BP 120/74; PULSE 97; BMI 26.0
--- OUTSIDE RECORDS SUMMARY | 2025-01-17 17:50 | XMS_ITS | Encounter Summary ---
Author Organization [facility] Address [address] [place] [phone] Phone Care Team Providers Care Customer Loyalty Representative Name Role Phone Derrell Redmond MD Primary Care Provider Encounter Details Date Type Department Care Team (Late st Contact Info) Description 10/18/2012 Documentation EM Family Medicine [address] [place] [address] Family Medicine, Physician [address] [place], [place] [phone] Social History Tobacco Use Types Packs/Day Years [...] on filedocumented in this encounter Care Teams Customer Loyalty Representative Relationship Specialty Start Date End Date Derrell Redmond MD [address] [facility] [place] [address] PCP - General 06/05/17 01/07/23 documented as of this encounter
--- OUTSIDE RECORDS SUMMARY | 2025-01-17 17:50 | XMS_ITS | Clinical Summary ---
Author Organization [facility] Address [address] [place] [phone] Phone Care Team Providers Care Manager Creative Services Name Role Phone Unavailable Primary Care Provider [...] of Cancer, No family history of *Sudden /[place] under 55, Family history of Migraines, No [...] of 2 - 13+ 2-dose series) 2007 DTaP,Tdap,and Td Vaccines (7 - Td or [...]
--- OUTSIDE RECORDS SUMMARY | 2025-01-17 17:50 | XMS_ITS | Encounter Summary ---
Author Organization [facility] Address [address] [place] [phone] Phone Care Team Providers Care Supervisor Partial Denture Department Name Role Phone Derrell Redmond MD Primary Care Provider [phone] Encounter Details Date Type Department Care Team (Late st Contact Info) Description 06/11/2017 Conversion Encounter [facility] [address] [place] [address] Social History Tobacco Use Types Packs/Day Years [...] on filedocumented in this encounter Care Teams Supervisor Partial Denture Department Relationship Specialty Start Date End Date Derrell Redmond MD [address] [place] [address] PCP - General 06/05/17 01/07/23 documented as of this encounter
== END 2025-01-17 15:06 | disposition home or self-care (01) ==
LOC: HO.HGS 14:17
PROVIDERS: PCP Physician Assistant; Visit Provider Surgery
DX: L02.31 Cutaneous abscess of buttock (principal)
CPT/HCPCS: 99024

== ENCOUNTER → 2025-01-17 14:17 | Outpatient (BNVA) | payer MEDICARE, MEDICAID, SELFPAY | PROVIDERS: PCP Physician Assistant; Visit Provider Surgery | DX: Z48.817 Encounter for surgical aftercare following surgery on the skin and subcutaneous tissue (principal); Z98.890 Other specified postprocedural states | CPT/HCPCS: 99212 ==

== ENCOUNTER 2025-01-26 12:59 | Outpatient (AMB) | payer MEDICARE, MEDICAID, SELFPAY ==
--- NOTE | 2025-01-26 12:56 | MHC.PC.OV ---
Intake Visit Reasons: follow [phone] Solderer Torch Required: No Accompanied by: Mother Allergies No Known Allergies [No Known Allergies*] Allergy (Verified 01/26/25 12:57) Tobacco use date assessed: 01/26/25 Dental Screening Dental Screen Date: 01/26/25 Did you have a dental visit in the last 12 months?: No Did you have a dental problem in the last 6 months where you did not have access to dental care?: No Was dental information given to patient?: Patient has dentist HPI follow [phone] HPI Details Patient is a 29-year-old male being evaluated today via telephone. Patient is autistic and has a difficult time leaving his home due to increased anxiety. Mother's trying her best to take care of William. Patient admitted Hospital in early December 2024 for acute buttock abscess. He was found to have positive blood cultures with strep viridans bacteremia in an acute iliac vein thrombosis. He was treated with IV Zosyn and vancomycin. He underwent an I and D with general surgery. With the abscess was at the base of the penis and Urology evaluated though did not need any intervention. Has been done follow up with his general surgeon in appearance that she he has healed well from the abscess. Concerns still remain about what has caused his lower extremity DVT. Will continue on Eliquis for now will refer to Hematology for further recommendations on anticoagulation use. Likely a provoked DVT secondary to acute illness at the time. Of note mother also did have a DVT during her . [facility] Medical History Mild intermittent asthma Autism Social History Household Members: None Housing: Apartment Alcohol intake: never Patient Tobacco Use Status: Never used Tobacco Tobacco use type: Cigarette Cigarette Packs Per Day: 1 e-Cigarette/Vaping Use: Never Used service: No Current occupational status: unemployed Cognitive needs: No Hearing needs: No Vision needs: No Questionnaire PHQ-9 Over the last 2 weeks, how often have you been bothered by any of the following problems? 1. Little interest or pleasure in doing things: more than half the days 2. Feeling down, depressed, or hopeless: nearly every day 3. Trouble falling or staying asleep, or sleeping too much: nearly every day 4. Feeling tired or having little energy: nearly every day 5. Poor appetite or overeating: not at all 6. Feeling bad about yourself - or that you are a failure or have let yourself or your family down: several days 7. Trouble concentrating on things, such as reading the newspaper or watching television: not at all 8. Moving or speaking so slowly that other people could have noticed. Or the opposite - being so fidgety or restless that you have been moving around a lot more than usual: not at all 9. Thoughts that you would be better off or of hurting yourself in some way: not at all Total score: 12 Depression Screening Interpretation: Positive Depression Screening Follow-up: Existing condition Depression Screening Done: Yes 19154 - PHQ-9 Billing: Yes Source: Developed by Drs. Terrence Simpson, Teresa Rhodes, Adam Pradhan and colleagues, with an educational shyam from [employer] ([email or web address]). Thrive Questionnaire Date Thrive assessed: 01/26/25 I am a: Patient What is your living situation today?: I have a steady place to live Within the past 12 months, did the food you bought not last and you didn't have the money to get more?: Never true Within the past 12 months, did you worry whether your food would run out before you got money to buy more?: Never true Do you have trouble paying for medicines?: No Do you have trouble getting transportation to medical appointments?: No Do you have trouble paying your heating and electricity bill?: No Do you have trouble taking care of your child, family member or friend?: No Do you have trouble with day-to-day activities such as bathing, preparing meals, shopping, managing finances, etc.?: No Are you currently unemployed and looking for a job?: No Are you interested in more education?: No Please select the resources that you would like help with: None Currently or been in a relationship where the following occur: No concerns reported THRIVE Score: 0 AUDIT C Alcohol Use Questionnaire (AUDIT-C) 1. How often do you have a drink containing alcohol?: Never 3. How often do you have six or more drinks on one occasion?: Never Total Score: 0 JOSE E-7 AMB Questionnaire JOSE E-7 Date JOSE E - 7 assessed: 01/26/25 Feeling nervous, anxious, or on edge: 0 = Not at all Not being able to stop or control worryin = Not at all Worrying too much about different things: 0 = Not at all Trouble relaxin = Not at all Being so restless that it is hard to sit still: 0 = Not at all Becoming easily annoyed or irritable: 0 = Not at all Feeling afraid as if something awful might happen: 0 = Not at all Total JOSE E-7 score (0-4 normal; 5-9 mild; 10-14 moderate; 15-21 severe): 0 Source: Developed by Drs. Terrence Simpson, Teresa Rhodes, Adam Pradhan and colleagues, with an educational shyam from [employer] ([employer]). JOSE E-7 Assessment Billing JOSE E-7 Assessment Tool: JOSE E-7 Assessment 65701 Review of Systems Const Denies headache(s) Eyes Denies loss of vision ENT Denies vertigo, Denies dizziness, Denies headache(s) and Denies sore throat Card Denies chest pain, Denies leg edema and Denies lightheadedness Resp Denies cough, Denies hemoptysis and Denies wheezing GI Denies abdominal pain, Denies melena, Denies constipation, Denies diarrhea and Denies vomiting Denies dysuria, Denies urinary frequency and Denies urinary urgency Musc Denies arthralgias, Denies joint swelling, Denies numbness and Denies tingling Neuro Denies behavioral changes, Denies vertigo, Denies dizziness, Denies headache(s), Denies loss of vision, Denies memory loss, Denies numbness and Denies tingling Psych Denies anxiety, Denies behavioral changes, Denies depression, Denies memory loss and Denies panic attacks Vikram/Lymph Denies easy bleeding and Denies easy bruising Aller/Immun Denies wheezing Physical exam (Primary Care) Tobacco/Smoking Status: Tobacco use Status Tobacco use date assessed 01/26/25 01/26/25 12:59 Patient Tobacco Use Status Never used Tobacco 01/26/25 12:59 Tobacco use type Cigarette 01/26/25 12:59 e-Cigarette/Vaping Use Never Used 01/26/25 12:59 PHQ-9: PHQ-9 Score PHQ-9: Total score 12 01/26/25 12:59 Depression Screening Interpretation: Positive Depression Screening Follow-up: Existing condition Thrive Assessment: Date of Thrive Assessment Date Thrive assessed 01/26/25 01/26/25 12:59 Currently or been in a relationship where the following occur: No concerns reported Telehealth Telehealth Telehealth Platform: Telephone Location of provider rendering services: practice address Location of patient: address on file Patient Identification confirmed using: Name, : Yes Telehealth method: voice only Patient verbally consented to treatment: Yes Patient verbally consented to billing insurance company: Yes Patient informed of any privacy concerns related to visit: Yes Minutes spent on Phone/Video with Pt.: 11 Coding Level of Care Code Tele Est Pt Level 3 (61309) Diagnoses Abscess of buttock L02.31 Acute deep vein thrombosis (DVT) of iliac vein of both lower extremities I82.423 Anemia due to other cause, not classified D64.89 Anemia type: other cause Other causes of anemia: other cause, not classified Additional Codes JOSE E-7 Assessment Billing - JOSE E-7 Assessment Tool: JOSE E-7 Assessment 48471 ([id number]) PHQ-9 - 84195 - PHQ-9 Billing: Yes ([id number]) Assessment & Plan Assessment & Plan (1) Abscess of buttock: Code(s): L02.31 - Cutaneous abscess of buttock Category: Medical Plan: Patient had follow up with his general surgeon and reports he has healed well in his abscess has resolved. (2) Acute deep vein thrombosis (DVT) of iliac vein of both lower extremities: Code(s): I82.423 - Acute embolism and thrombosis of iliac vein, bilateral Category: Medical Plan: As per HPI patient had an acute DVT in the lower extremity, was started on Eliquis and was told to take it for the next 3 months. Patient's mother also had a blood clot during her . Will try to set patient up with Hematology to give recommendations on further need for anticoagulation. (3) Anemia: Code(s): D64.9 - Anemia, unspecified Category: Medical Qualifiers: Anemia type: other cause Other causes of anemia: other cause, not classified Qualified Code(s): D64.89 - Other specified anemias Plan: Was noted to have anemia while in the hospital. Will like to check post hospital labs to evaluate his anemia Orders: Orders Complete Blood Count no Diff Today I82.423 - Acute embolism and thrombosis of iliac vein, bilateral Comprehensive Met. Panel Today I82.423 - Acute embolism and thrombosis of iliac vein, bilateral IRON PROFILE Today D50.9 - Iron deficiency anemia, unspecified, D64.89 - Other specified anemias Referrals Hematology & Oncology Referral I82.423 - Acute embolism and thrombosis of iliac vein, bilateral Medications: Refilled apixaban (Eliquis) 5 mg PO BID 90 days 180 tabs 0RF I82.423 - Acute embolism and thrombosis of iliac vein, bilateral
--- OUTSIDE RECORDS SUMMARY | 2025-01-26 14:10 | XMS_ITS | Encounter Summary ---
Author Organization [facility] Address [address] [place] [phone] Phone Care Team Providers Care Heavy Equipment Operator/Paver Name Role Phone Derrell Redmond MD Primary Care Provider [phone] Encounter Details Date Type Department Care Team (Late st Contact Info) Description 10/18/2012 Documentation EM Family Medicine [address] [place] [address] Family Medicine, Physician [address] [place], [place] [phone] Social History Tobacco Use Types Packs/Day Years [...] on filedocumented in this encounter Care Teams Heavy Equipment Operator/Paver Relationship Specialty Start Date End Date Derrell Redmond MD [address] [facility] [place] [address] PCP - General 06/05/17 01/07/23 documented as of this encounter
--- OUTSIDE RECORDS SUMMARY | 2025-01-26 14:10 | XMS_ITS | Encounter Summary ---
Author Organization [facility] Address [address] [place] [phone] Phone Care Team Providers Care Web Mobile Designer Name Role Phone Derrell Redmond MD Primary Care Provider [phone] Encounter Details Date Type Department Care Team (Late st Contact Info) Description 06/11/2017 Conversion Encounter [facility] [place] [address] [place] [address] Social History Tobacco Use Types Packs/Day Years [...] on filedocumented in this encounter Care Teams Web Mobile Designer Relationship Specialty Start Date End Date Derrell Redmond MD [address] [place] [address] PCP - General 06/05/17 01/07/23 documented as of this encounter
--- OUTSIDE RECORDS SUMMARY | 2025-01-26 14:10 | XMS_ITS | Clinical Summary ---
Author Organization [facility] Address [address] [place] [phone] Phone Care Team Providers Care Dike Supervisor Name Role Phone Unavailable Primary Care Provider [...] of Cancer, No family history of *Sudden /[place] under 55, Family history of Migraines, No [...]
== END 2025-01-26 13:46 | disposition home or self-care (01) ==
LOC: HO.HMCH 12:59
PROVIDERS: PCP Physician Assistant; Visit Provider Physician Assistant
DX: I82.423 Acute embolism and thrombosis of iliac vein, bilateral (principal); L02.31 Cutaneous abscess of buttock; D64.89 Other specified anemias

== ENCOUNTER → 2025-01-26 12:59 | Outpatient (BNVA) | payer MEDICARE, MEDICAID, SELFPAY | PROVIDERS: PCP Physician Assistant; Visit Provider Physician Assistant | DX: I82.423 Acute embolism and thrombosis of iliac vein, bilateral (principal); D64.89 Other specified anemias; D50.9 Iron deficiency anemia, unspecified; L02.31 Cutaneous abscess of buttock; F84.0 Autistic disorder; Z86.718 Personal history of other venous thrombosis and embolism | CPT/HCPCS: 96127 ==